=== PATIENT | female | born 1950 | race Caucasian/White ===

== ENCOUNTER 2024-05-03 12:03 | Emergency (ER) | payer MEDICARE, SELFPAY ==
--- NOTE | ~2024-05-03 | CT_ITS ---
Non-contrast Head CT History: Dizziness Technique: Axial non-contrast imaging of the brain was performed. Dose reduction technique was used on this scan by utilizing automated exposure control and iterative reconstruction technique. The dose -length product (DLP) was 605.33 mGy-cm. Findings: There is no evidence of intracranial hemorrhage, mass lesion, or acute infarct. Cerebellar atrophy noted. Cerebral hemispheres are normal in volume/appearance. The ventricles and subarachnoid spaces are normal in size. The calvarium appears normal. The visualized paranasal sinuses and mast oid air cells are clear. Impression: Cerebellar atrophy. No acute abnormality evident otherwise. Reviewed, dictated and finalized at location . Impression: Cerebellar atrophy. No acute abnormality evident otherwise.
--- NOTE | ~2024-05-03 | CT_ITS ---
EXAMINATION: CTA BRAIN/CAROTID DATE: 05/03/2024 15:43 INDICATION: Cerebellar atrophy and dizziness and disorientation. TECHNIQUE: Computed tomographic angiography (CTA) of the head and neck was performed with 100 mL Omni paque-350 intravenous contrast. Multiplanar reconstructions and maximum intensity projection 3D-recon structions of the carotid arteries and of the intracranial arteries were created by the technologist on a separate workstation. Precontrast CT of the head was also obtained. Automated exposure control and iterative reconstruction technique were employed.The dose-length product was 1129.92 mGy-cm. COMPARISON: None. FINDINGS: Carotid arteries: Ectatic ascending thoracic aorta visualized portion measuring up to 3.9 x 3.7 cm. There is small amou nt of atherosclerotic plaque with 0% stenosis of the right and left carotid bulbs relative to normal distal artery lumen diameter (NASCET criteria). Without pleural parenchymal scarring and a couple <4 mm nodules at the bilateral upper lobes. Peripheral soft tissues are unremarkable. Mild cervical spon dylosis. Intracranial arteries Bilateral vertebral arteries are codominant. Small amount of nonhemodynamically significant atheroscl erotic calcific lesion at the bilateral carotid siphons. There is no hemodynamically significant sten osis in the vertebral, basilar and internal carotid arteries. There are no aneurysms identified. Bot h A1 and P1 segments are patent. The left P1 segment is diminutive with collateral flow supplied to t he left posterior cerebral artery via a larger caliber patent left posterior communicating artery. Ce rebral arterial arborization appears symmetric. Bilateral cerebellar atrophy. IMPRESSION: 1. Small amount of atherosclerotic plaque with 0% stenosis of the right and left carotid bulbs relati ve to normal distal artery lumen diameter (NASCET criteria). 2. Unremarkable cerebral CT angiogram with no hemodynamic significant stenosis, thrombosis or aneurys m or 3. Bilateral cerebellar atrophy. 4. A couple <4 mm pulmonary nodules at the bilateral upper lobes. If the patient is low risk for lung cancer, no follow-up is needed. If the patient is high risk (i.e., history of smoking or asbestos or significant radiation exposure), optional follow-up chest CT could be considered at 12 months. Reviewed, dictated and finalized at location A. IMPRESSION: 1. Small amount of atherosclerotic plaque with 0% stenosis of the right and lef t carotid bulbs relative to normal distal artery lumen diameter (NASCET criteri a). 2. Unremarkable cerebral CT angiogram with no hemodynamic significant stenosis, thrombosis or aneurysm or 3. Bilateral cerebellar atrophy. 4. A couple <4 mm pulmonary nodules at the bilateral upper lobes. If the patien t is low risk for lung cancer, no follow-up is needed. If the patient is high r isk (i.e., history of smoking or asbestos or significant radiation exposure), o ptional follow-up chest CT could be considered at 12 months.
--- NOTE | 2024-05-03 12:07 | ECG_ITS ---
Test Date: 2024-05-03 12:12:07 Measurements Intervals [place] Rate: 72 P: 57 [place]: 168 QRS: 1 QRSD: 94 T: 23 QT: 398 QTc: 436 Interpretive Statements SINUS RHYTHM LOW QRS VOLTAGE IN PRECORDIAL LEADS INCOMPLETE RIGHT BUNDLE BRANCH BLOCK BORDERLINE ST-T WAVE ABNORMALITY- ANTEROLAT/INF LEADS BASELINE ARTIFACT- I, II, III, AVR, AVL, V5 BORDERLINE ECG No previous ECG available for comparison Electronically Signed On 05-03-2024 16:25:50 CDT by London Katz D.O.
[2024-05-03 12:08] VITALS: BP 146/80; PULSE 80; RESP 16; TEMP 36.2; O2SAT 96
--- NOTE | 2024-05-03 13:05 | ED.DIZZY ---
HPI - Dizziness General Chief Complaint: Dizziness <Priyank Burrell, DIRECTOR COUNSELING [employer]UREAU - Last Filed: 05/03/24 13:19> Stated Complaint: virtigo <Priyank Burrell DIRECTOR COUNSELING [employer]AU - Last Filed: 05/03/24 13:19> Time Seen by Provider: 05/03/24 14:25 <Priyank Burrell APRN - Last Filed: 05/03/24 13:19> 73-year-old female history of seizure disorder treated with cervix presents to the emergency room for evaluation of intermittent dizziness for 3 weeks. Patient has a history of vertigo which has been treated with meclizine in the past. Patient states that ?I have not been feeling well for several weeks?. States her dizziness is worse with movement. Associated with nausea. Patient states that she has stopped taking her anti seizure medication in favor of taking her meclizine. States the meclizine has not been helping her dizziness. Denies head injury or trauma. <Priyank Burrell APRN - Last Filed: 05/03/24 13:19> Source: patient and family (grandson and grandson's girlfriend) <Jenn Duggan MD - Last Filed: 05/06/24 20:35> Mode of arrival: ambulatory <Jenn Duggan MD - Last Filed: 05/06/24 20:35> Limitations: no limitations <Jenn Duggan MD - Last Filed: 05/06/24 20:35> History of Present Illness HPI Narrative: Agree with above with following addition/correction: Her episodes of dizziness are brief, lasting a few seconds. Describes it as a disorientation but not a spinning sensation. Does not see a neurologist for her seizure disorder or her previous diagnosis of vertigo. Episodes sometimes brought on or made worse by movement (both general position as well as head movement). No headache. Symptoms have lasted several days, worsening. Not lightheaded but feels off balance. No syncope or near syncope. Occasionally using her walker when she is symptomatic. Not currently symptomatic. Possible tinnitus; doesn't describe it as a ringing but states her hearing has chronically been off. No trauma. No new meds. Associated with nausea but no vomiting. Does not have a pacemaker in place. States she has never undergone an MRI but has had an EEG for her seizures. Patient can not recall her seizure medication but believes it might be phenytoin. Also on levothyroxine. <Jenn Duggan MD - Last Filed: 05/06/24 20:35> Related Data Home Medications: Home Medications Medication Instructions Recorded Confirmed amlodipine 5 mg tablet 5 mg PO DAILY 05/11/22 05/11/22 mometasone-formoterol HFA 100 2 puff inhalation Q12H 05/11/22 05/11/22 mcg-5 mcg/actuation aerosol inhaler (Dulera) phenytoin sodium extended 100 mg 100 mg PO TID 05/11/22 05/11/22 capsule levothyroxine 25 mcg tablet 25 mcg PO DAILY 05/17/23 (Unithroid) meloxicam 15 mg tablet 15 mg PO DAILY 05/17/23 polyethylene glycol 3350 17 17 g PO DAILY 05/17/23 gram/dose oral powder (Miralax) rosuvastatin 40 mg tablet 40 mg PO DAILY 05/17/23 <Priyank Burrell, DIRECTOR COUNSELING [employer]AU - Last Filed: 05/03/24 13:19> Allergies/Adverse Reactions: Allergies Allergy/AdvReac Type Severity Reaction Status Date / Time No Known Allergies Allergy Verified 05/17/23 14:50 <Priyank Burrell APRN - Last Filed: 05/03/24 13:19> [facility] Past Medical History Medical History: Medical History (Updated 05/04/24 @ 00:00 by Megan Min) High cholesterol Hypertension Screening mammogram, encounter for Seizures <Priyank Burrell APRN - Last Filed: 05/03/24 13:19> Surgical History Surgical History: Surgical History (Updated 05/06/24 @ 20:22 by Jenn Duggan MD) History of gastrointestinal surgery repair of abdominal fistula History of hysterectomy (~1993) History of left breast biopsy <Priyank Burrell APRN - Last Filed: 05/03/24 13:19> Social History Social History: Social History (Updated 05/06/24 @ 20:29 by Jenn Duggan MD) Smoking status: Never smoker Alcohol intake: never Substance use: never Sub
[2024-05-03 13:21] LABS: Basophils Percent Auto 0.5 % (0.2-1.2); Eosinophils Absolute Auto 0.1 K/mm3 (0-0.3); Eosinophils Percent Auto 1.6 % (0-4.4); Hematocrit 43.4 % (37.0-47.0); Hemoglobin 14.1 g/dL (12.0-15.0); Immature Granulocyte Absolute 0.02 K/mm3 (0.00-0.031); Immature Granulocyte Percent A 0.4 % (0-0.5); Lymphocytes Absolute Auto 1.04 K/mm3 (0.9-3.2); Lymphocytes Percent Auto 18.6 % (18.3-44.2); Mean Corpuscular HGB Conc 32.5 g/dl (32-36); Mean Corpuscular Hemoglobin 29.9 pg (26-34); Mean Corpuscular Volume 91.9 fl (80-100); Mean Platelet Volume 9.6 fl (7.4-10.4); Monocytes Absolute Auto 0.3 K/mm3 (0.1-0.6); Monocytes Percent Auto 6.1 % (2.6-8.5); Neutrophils Absolute Auto 4.1 K/mm3 (1.3-6.7); Neutrophils Percent Auto 72.8 % (45.5-73.1); Platelet Count Result 247 k/mm3 (150-375); Red Blood Count 4.72 M/mm3 (4.2-5.4); Red Cell Distribution Width 12.2 % (11.5-14.5); White Blood Count 5.6 K/mm3 (4.5-10.0)
[2024-05-03 13:30] LABS: Alanine Aminotransferase 59 U/L (6-35); Albumin Level 4.9 g/dL (3.5-5.1); Alkaline Phosphatase 114 U/L (38-126); Anion Gap 13 mmol/L (4-12); Aspartate Amino Transferase 55 U/L (14-36); Bilirubin,Total 0.6 mg/dL (0.2-1.3); Blood Urea Nitrogen 14 mg/dL (7-17); Calcium 9.7 mg/dL (8.4-10.2); Carbon Dioxide 24 mmol/L (22-30); Chloride 102 mmol/L (98-107); Estimated CRCL calculation 80 ml/min; Estimated Glomerular Filt Rate > 60; Glucose 107 mg/dL (65-110); Potassium 3.9 mmol/L (3.4-5.0); Sodium 139 mmol/L (137-145)
[2024-05-03 13:42] LABS: Troponin I < 0.012 ng/mL (0.000-0.034)
[2024-05-03 14:06] VITALS: BP 122/68; PULSE 66; RESP 17; TEMP 36.6; O2SAT 97
[2024-05-03 14:57] LABS: Appearance Urine Clear (Clear); Bacteria Urine None Seen /hpf; Bilirubin Urine Negative (Negative); Blood Urine Negative (Negative); Color Urine Yellow (Yellow); Glucose Urine UA Negative (Negative); Ketones Urine 2+ mg/dL (Negative); Leukocyte Esterase Ur Trace LEU/UL (Negative); Nitrate Urine Negative (Negative); Non Pathogenic Casts 0-2; Protein Urine Negative (Negative); RBC Urine 0-2 /hpf (0-2); Specific Grav Ur 1.013 (1.001-1.035); Squamous Epithelial Cell Urine None Seen /hpf (Few); WBC Urine 0-5 /hpf (0-3)
[2024-05-03 15:02] LABS: Add Urine Microscopic? YES
--- NOTE | 2024-05-03 16:16 | PC.NURSE ---
Walked down the hallway with the patient. She used the walker. She was steady on her feet and not dizzy when standing or walking.
[2024-05-03 16:28] VITALS: BP 155/77; PULSE 66; RESP 18; TEMP 36.9; O2SAT 97
[2024-05-03 18:15] VITALS: BP 154/82; PULSE 82; RESP 18; TEMP 36.8; O2SAT 100
== END 2024-05-03 17:25 | disposition home or self-care (01) ==
PROVIDERS: Nurse Practitioner Family; Emergency Provider Student in an Organized Health Care Education/Training Program; PCP Internal Medicine
DX: R42 Dizziness and giddiness (principal); G31.9 Degenerative disease of nervous system, unspecified; R74.01 Elevation of levels of liver transaminase levels; G40.909 Epilepsy, unspecified, not intractable, without status epilepticus; I10 Essential (primary) hypertension; E78.00 Pure hypercholesterolemia, unspecified; Z90.710 Acquired absence of both cervix and uterus; R91.8 Other nonspecific abnormal finding of lung field
CPT/HCPCS: 36415; 70450; 70496; 70498; 80053; 81001; 84484; 85025; 93005; 99284; Q9967

== ENCOUNTER 2024-07-13 12:55 | Outpatient (CLI) | payer MEDICARE, SELFPAY ==
--- NOTE | ~2024-07-13 | MR_ITS ---
EXAMINATION: MR brain/brain stem wo con DATE: 07/13/2024 13:37 INDICATION: Vertigo. TECHNIQUE: Magnetic resonance imaging (MRI) of the brain and brainstem was performed without intraven ous contrast. COMPARISON: Head CT 05/03/2024 FINDINGS: There are scattered areas of nonspecific increased T2-weighted signal intensity in the cere bral white matter, which is within normal limits for the patient's age. There is no intracranial hemo rrhage, acute infarction, or abnormal intracranial mass lesion. The ventricles are normal in size. Th e orbits are normal. There is mild mucosal thickening in the paranasal sinuses. The mastoid air cells are normal. IMPRESSION: 1. Normal aging brain. Reviewed, dictated and finalized at location A. IMPRESSION: 1. Normal aging brain.
== END 2024-07-13 12:56 | disposition home or self-care (01) ==
PROVIDERS: PCP Internal Medicine; Visit Provider Internal Medicine
DX: R42 Dizziness and giddiness (principal)
CPT/HCPCS: 70551

== ENCOUNTER 2024-08-07 14:28 | Outpatient (CLI) | payer MEDICARE, SELFPAY ==
[2024-08-07 14:43] LABS: Basophils Absolute Auto 0.1 K/mm3 (0.0-0.1); Basophils Percent Auto 1.3 % (0.2-1.2); Eosinophils Absolute Auto 0.2 K/mm3 (0-0.3); Eosinophils Percent Auto 3.2 % (0-4.4); Hematocrit 40.4 % (37.0-47.0); Hemoglobin 12.9 g/dL (12.0-15.0); Lymphocytes Absolute Auto 1.19 K/mm3 (0.9-3.2); Lymphocytes Percent Auto 25.5 % (18.3-44.2); Mean Corpuscular HGB Conc 31.9 g/dl (32-36); Mean Corpuscular Hemoglobin 29.9 pg (26-34); Mean Corpuscular Volume 93.5 fl (80-100); Mean Platelet Volume 9.3 fl (7.4-10.4); Monocytes Absolute Auto 0.4 K/mm3 (0.1-0.6); Monocytes Percent Auto 7.5 % (2.6-8.5); Neutrophils Absolute Auto 2.9 K/mm3 (1.3-6.7); Neutrophils Percent Auto 62.5 % (45.5-73.1); Platelet Count Result 224 k/mm3 (150-375); Red Blood Count 4.32 M/mm3 (4.2-5.4); Red Cell Distribution Width 12.4 % (11.5-14.5); White Blood Count 4.7 K/mm3 (4.5-10.0)
[2024-08-07 16:38] LABS: Iron 97 ug/dL (37-170)
[2024-08-07 16:41] LABS: Alanine Aminotransferase 19 U/L (6-35); Albumin Level 4.8 g/dL (3.5-5.1); Alkaline Phosphatase 125 U/L (38-126); Anion Gap 10 mmol/L (4-12); Aspartate Amino Transferase 24 U/L (14-36); Bilirubin,Total 0.3 mg/dL (0.2-1.3); Blood Urea Nitrogen 12 mg/dL (7-17); Calcium 9.6 mg/dL (8.4-10.2); Carbon Dioxide 30 mmol/L (22-30); Chloride 99 mmol/L (98-107); Estimated Glomerular Filt Rate > 60; Glucose 96 mg/dL (65-110); Sodium 139 mmol/L (137-145)
[2024-08-07 16:50] LABS: Percent Iron Saturation 39 % (20-50)
[2024-08-07 17:48] LABS: Folic Acid 4.1 ng/mL (2.76->20)
[2024-08-09 10:24] LABS: Anti Nuclear Antibody Pattern Nuclear, Speckled
== END 2024-08-07 14:29 | disposition home or self-care (01) ==
LOC: ANHLAB 14:30
PROVIDERS: PCP Internal Medicine; Visit Provider Internal Medicine Hematology & Oncology
DX: D64.9 Anemia, unspecified (principal); D72.819 Decreased white blood cell count, unspecified
CPT/HCPCS: 36415; 80053; 82607; 82728; 82746; 83540; 83550; 85025; 86038; 86039

== ENCOUNTER 2025-01-09 14:55 | Outpatient (CLI) | payer MEDICARE, SELFPAY ==
[2025-01-09 15:10] LABS: Basophils Absolute Auto 0.1 K/mm3 (0.0-0.1); Basophils Percent Auto 1.1 % (0.2-1.2); Eosinophils Absolute Auto 0.2 K/mm3 (0-0.3); Eosinophils Percent Auto 4.4 % (0-4.4); Hematocrit 39.5 % (37.0-47.0); Hemoglobin 12.8 g/dL (12.0-15.0); Immature Granulocyte Absolute 0.01 K/mm3 (0.00-0.031); Immature Granulocyte Percent A 0.2 % (0-0.5); Lymphocytes Absolute Auto 1.32 K/mm3 (0.9-3.2); Mean Corpuscular HGB Conc 32.4 g/dl (32-36); Mean Corpuscular Hemoglobin 30.2 pg (26-34); Mean Corpuscular Volume 93.2 fl (80-100); Mean Platelet Volume 9.3 fl (7.4-10.4); Monocytes Absolute Auto 0.4 K/mm3 (0.1-0.6); Monocytes Percent Auto 7.3 % (2.6-8.5); Neutrophils Absolute Auto 3.5 K/mm3 (1.3-6.7); Platelet Count Result 243 k/mm3 (150-375); Red Blood Count 4.24 M/mm3 (4.2-5.4); Red Cell Distribution Width 12.7 % (11.5-14.5); White Blood Count 5.5 K/mm3 (4.5-10.0)
--- OUTSIDE RECORDS SUMMARY | 2025-01-09 16:16 | XMS_ITS | Clinical Summary ---
Author Organization [facility] Address [address] [address] [place] [address] Phone Care Team Providers Care Senior Construction Project Manager Name Role Phone Ang Florez MD Primary Care Provider Allergies No known active allergies Medications phenytoin sodium extended release (DILANTIN) 100 mg capsule Take 300 mg by mouth 3 times daily. Active amLODIPine (NORVASC) 5 mg tablet Take 5 mg by mouth daily. Active Unithroid 25 mcg tablet Take 25 mcg by mouth daily. Active rosuvastatin (CRESTOR) 40 mg tablet Take 40 mg by mouth daily. Active Active Problems No known active problems Encounters Date Type Department Care Team Description 01/02/2025 External Device Data [facility] ABSTRACTION Provider, Abstract 12/22/2024 External Device Data [facility] Provider, Abstract 12/21/2024 External Device Data [facility]STRA[facility] Provider, Abstract 12/18/2024 External Device Data [facility]CTION Provider, Abstract 12/04/2024 External Device Data [facility]STRACTION Provider, Abstract 11/08/2024 External Device Data [facility]STRACTION Provider, Abstract 11/07/2024 External Device Data [facility]STRACTION Provider, Abstract 11/06/2024 External Device Data [facility]STRACTION Provider, Abstract 10/31/2024 External Device Data [facility]STRACTION Provider, Abstract from Last 3 Months Family History Medical History Relation Name Comments No Known Problems Brother 1 No Known Problems Brother 2 Pancreatic Cancer Child No Known Problems Father Heart defect Mother No Known Problems Sister Relation Name Status Comments Brother 1 Brother 2 Child Father Mother Sister Alive Social History Tobacco Use Types Packs/Day Years Used Date Smoking Tobacco: Never Smokeless Tobacco: Never Tobacco Cessation:Counseling Given: Not Answered Alcohol Use Standard Drinks/Week Comments Never 0 (1 standard drink = 0.6 oz pur e alcohol) Comments No Sex and Gender Information Value Date Recorded Sex Assigned at Not on file Legal Sex Female 9:20 AM CDT Gender Identity Not on file Sexual Orientation Not on file Last Filed Vital Signs Vital Sign Reading Time Taken Comments Blood Pressure 152/68 08/07/2024 1:53 PM CDT took bp meds at noon Pulse 60 08/07/2024 1:42 PM CDT Temperature 36.6 C (97.8 F) 08/07/2024 1:42 PM CDT Respiratory Rate 16 08/07/2024 1:42 PM CDT Oxygen Saturation 96% 08/07/2024 1:4 2 PM CDT Inhaled Oxygen Concentration - - Weight 73.5 kg (162 lb) 08/07/2024 1:42 PM CDT Height 160 cm (5' 3 ) 08/07/2024 1:42 PM CDT Body Mass Index 28.7 08/07/2024 1:42 PM CDT Plan of Treatment Upcoming Encounters Date Type Department Care Team (Late st Contact Info) Description 01/11/2025 11:30 AM CDT Office Visit [facility] Oncology and Hematology - [place] [address] [place] [address] [facility] [address] [place] [address] Dereck Garber MD [address] [facility] [address] [place] [address] Health Maintenance Due Date Last Done Comments DTAP/TDAP/TD VACCINES (1 - Tdap) 1967 RSV VACCINE (60+ or ) (1 - 1-dose 75+ series) 2023 INFLUENZA VACCINE (#1) 2024 , 07/22/2021, 08/18/2020 Medicare [place]age [place]) Prev entative Visit/Annual Wellness Visit 10/17/2024 PNEUMOCOCCAL VACCINE 50+ YEARS Completed 12/15/2017 , 09/16/2016 OSTEOPOROSIS SCREENING Completed 06/16/2023 ZOSTER VACCINE Completed 08/09/2023, 06/13/2023 Insurance [facility] [id number] Care Teams Senior Construction Project Manager Relationship Specialty Start Date End Date Ang Florez MD PCP - General Internal Medicine 08/07/24
--- OUTSIDE RECORDS SUMMARY | 2025-01-09 16:17 | XMS_ITS | Clinical Summary ---
Author Organization [facility] [place] [facility] [place] Address [address] [place] [address] Care Team Providers Care Planetarium Technician Name Role Phone Nora Fabian MD Primary Care Provider [phone] Social History Tobacco Use Types Packs/Day Years Used Date Smoking Tobacco: Never Assessed Personal Safety Answer Date Recorded Getting School Help Needed Not on file 05/03 Comments Unknown Sex and Gender Information Value Date Recorded Sex Assigned at Not on file Legal Sex Female 9:46 AM CDT Gender Identity Not on file Sexual Orientation Not on file Plan of Treatment Health Maintenance Due Date Last Done Comments Depression Screening 1948 Fall Risk Assessment 1950 Hepatitis C Screening 1950 DTaP/Tdap/Td Vaccine (1 - Tdap) 1959 Hepatitis B Screening 1966 Well Visit 65+ 2013 Covid-19 Vaccine (2023-2 5 season) 2024 09/01/2022, 09/24/2021, 09/08/2021, Additional history exists Influenza Vaccine (#1) 2024 , 07/22/2021, 09/04/2020, Additional history exists Osteoporosis Screening-Bone Density Scan 06/16/2025 06/16/2023 Pneumococcal vaccine 65+ Completed 12/15/2017, 1210/2015 Breast Cancer Screening-Mammogram Discontinued 019, 01/27/2019 Zoster Vaccine Completed 08/09/2023, 06/13/2023 Insurance [facility] MEDICARE ADVANTAGE [facility] Address: [address] [address] Care Teams Planetarium Technician Relationship Specialty [place] [address] [address] PCP - General Internal Medicine 07/09/20
--- OUTSIDE RECORDS SUMMARY | 2025-01-09 16:17 | XMS_ITS | Data Portability ---
Author Organization [place] - [facility], Main Office Address [address] [place] [address] Care Team Providers Care Waters[place] Program Manager Name Role Phone SHAWNEEEMIR JOSEISMAEL Primary Care Provider KALYAN BARON Commissioned Security Officer [place] Computer Technician [facility] Hospital Insurance Representative JENNA GARBER Hematology/Oncology Assessment Encounter Date Assessment Date Assessment LastModified by Organization Details LastModified Time 12/12/2023 12/12/2023 11/17/2022: Dr Henok Rudolph 232 WBC 3.8L Gluc 102 VIT D WNL 05/23/2023: B12 940 VIT D 28.3L AST 42 Chol 213, LDL 129 11/23/2023: Chol 207, LDL 121 Not available 12/12/2023 11:58:24 06/13/2024 06/13/2024 11/17/2022: Dr Henok Rudolph 232 WBC 3.8L Gluc 102 VIT D WNL 05/23/2023: B12 940 VIT D 28.3L AST 42 Chol 213, LDL 129 11/23/2023: Chol 207, LDL 121 05/22/2024: WBC 4.1 Na 136 Chol 245, LDL 150 Not available 06/13/2024 14:06:01 10/03/2024 10/03/2024 11/17/2022: Dr Henok Rudolph 232 WBC 3.8L Gluc 102 VIT D WNL 05/23/2023: B12 940 VIT D 28.3L AST 42 Chol 213, LDL 129 11/23/2023: Chol 207, LDL 121 05/22/2024: WBC 4.1 Na 136 Chol 245, LDL 150 08/07/2024: Dr Garber TP 9.0 MARLIN +ve 09/04/2024: Chol 203, LDL 120 WBC 3.3 VIT D 21 Not available 10/03/2024 14:30:06 01/02/2025 01/02/2025 11/17/2022: Dr Whiting B12 232 WBC 3.8L Gluc 102 VIT D WNL 05/23/2023: B12 940 VIT D 28.3L AST 42 Chol 213, LDL 129 11/23/2023: Chol 207, LDL 121 05/22/2024: WBC 4.1 Na 136 Chol 245, LDL 150 Not available 01/02/2025 15:04:37 Plan of Treatment Reminders Order Date Submit Date Provider Last Modified By Organization Details Last Modified Time Details Appointments Follow Up 15 2024 02:30P Reno toussaint MD Not available Not available Not available Lab lipid panel, serum 2024 025 Not available 01/02/2025 16:47:37 CMP, serum or plasma 2024 025 Not available 01/02/2025 16:47:37 CBC w/ auto diff 2024 025 Not available 01/02/2025 16:47:38 TSH + free T4, serum 2024 025 Not available 01/02/2025 16:47:38 vitamin D, 25-hydrox y, total, serum 2024 025 Not available 01/02/2025 16:47:37 measles igg Ab, titer, serum 2024 025 [email or web address], [address], [place], [address], 01/09/2025 09:22:25 rubella igg Ab, titer, serum 2024 025 [email or web address], [address], [place], [address], 01/09/2025 09:22:34 mumps igg Ab, titer, serum 2024 025 [email or web address], [address], [place], [address], 01/09/2025 09:22:46 vitamin B12 + folate, serum or blood 2024 025 Not available 01/02/2025 16:47:38 lipid panel, serum 2023 024 [employer] [facility], [address], [place], [address], 10/03/2024 15:20:48 CMP, serum or plasma 2023 024 [employer] [facility], [address], [place], [address], 10/03/2024 15:20:48 CBC w/ auto diff 2023 024 [employer] [facility], [address], [place], [address], 10/03/2024 15:20:49 TSH + free T4, serum 2023 024 [employer] [facility], [address], [place], [address], 10/03/2024 15:20:49 vitamin D, 25-hydrox y, total, serum 2023 024 [employer] [facility], [address], [place], [address], 10/03/2024 15:20:48 vitamin B12 + folate, serum or blood 2023 024 [email or web address], [address], [place], [address], 10/03/2024 15:20:48 lipid panel, serum 2023 024 [email or web address] Not available 12/11/2024 09:13:39 CMP, serum or plasma 2023 024 [email or web address] Not available 12/11/2024 09:13:39 CBC w/ auto diff 2023 024 RANDY Not available 08/07/2024 16:40:33 TSH + free T4, serum 2023 024 [email or web address] Not available 12/11/2024 09:13:40 vitamin D, 25-hydrox y, total, serum 2023 024 [email or web address] Not available 12/11/2024 09:13:39 vitamin B12 + folate, serum or blood 2023 024 [email or web address] Not available 12/11/2024 09:13:40 lipid panel, serum 2023 024 RANDY Not available 05/22/2024 18:37:16 CMP, serum or plasma 2023 024 RANDY Not available 05/22/2024 18:37:24 CBC w/ auto diff 2023 024 RANDY Not available 05/22/2024 18:40:10 TSH + free T4, serum 2023 024 [email or web address] Not available 06/20/2024 09:19:08 vitamin D, 25-hydrox y, total, serum 2023 024 Not available 06/20/2024 09:19:08 vitamin B12 + folate, serum or blood 2023 024 [email or web address] Not available 06/20/2024 09:19:08 Referral ophthalmo logist referral - Please call patient to schedule an appointme nt. Thank you. 2024 025 [employer], [address], [place], [address], 01/02/2025 19:00:56 cardiolog ist referral - Please call patient to schedule an appointme nt. Thank you. 2024 025 [place], [address] [address], [address], [place], [address], 01/02/2025 19:10:35 ophthalmo logist referral 2023 024 [email or web address] [facility], [address] [facility] , [place], [address], 10/23/2024 09:15:55 cardiolog ist referral 2023 024 [email or web address] [place], [address] [address], [place], [address], 10/04/2024 13:56:29 hematolog ist referral 2023 024 [email or web address] Jenna Garber MD, [address], [place], [address], 10/04/2024 13:57:02 ophthalmo logist referral 2023 024 shaila Bray, [address], [place], [address], 12/11/2024 08:10:26 cardiolog ist referral 2023 024 [place], [address] [address], [place], [address], 12/11/2024 08:10:27 hematolog ist referral 2023 024 [email or web address] 2 Jenna Garber MD, [address], [place], [address], 01/07/2025 08:21:36 ophthalmo logist referral 2023 024 [email or web address] [employer], [address], [place], [address], 07/09/2024 09:08:24 cardiolog ist referral 2023 024 [place], [address], [address], [place], [address], 07/06/2024 13:06:40 Procedures oral maneuver (PROC) - ORAL MANEUVER + EVANGELIST AGUILAR PIKE TESTING. 2023 024 [facility], [address], [place], [address], 05/22/2024 14:24:18 Surgeries None recorded. Imaging MAMMO, screening , digital, bilateral [address], [address], [place], [address], 01/03/2025 08:37:54 MAMMO, screening , digital, bilateral - Please call patient to schedule. [address] [facility], [address], [place], [address], 01/01/2025 13:02:54 DEXA, axial skeleton [address], [address] [place] [address] , [place], [address], 10/03/2024 17:59:55 DEXA, axial skeleton 2023 024 [facility], [address] [place] [address] , [place], [address], 07/27/2024 14:38:15 audiogram + tympanogr am 2023 024 [facility], [address] [facility], [address], [place], [address], 06/04/2024 16:07:57 DEXA, axial skeleton 2023 024 [email or web address] [facility], [address] [place] [address] Dr, [place], [address], 06/25/2024 10:03:54 Medication Orders cholecalc iferol (vitamin D3) 1,250 mcg (50,000 unit) capsule 2023 024 [email or web address] [address], [address], 01/02/2025 14:49:50 Advair Diskus 100 mcg-50 mcg/dose powder for inhalatio n 2023 024 [email or web address] [facility] [address], [address], 10/03/2024 14:03:34 albuterol sulfate HFA 90 mcg/actua tion aerosol inhaler 2023 024 [email or web address] [address], [address], 01/02/2025 14:49:28 Unithroid 25 mcg tablet 2023 024 [email or web address] [address], [address], 01/02/2025 14:50:38 Dulera 100 mcg-5 mcg/actua tion HFA aerosol inhaler 2023 024 [email or web address] [facility] [address], [address], 10/03/2024 14:03:08 Patient TargetsNo targets recorded. Patient Instructions Encounter Date Encounter Id Patient Instructions Last Modified By Organization Details Last Modified Time 05/17/2024 [id number] evangelist-hallpike irma t* - ORAL MANEUVER + EVANGELIST AGUILAR PIKE TESTING. [email or web address] Not available 05/22/2024 14:24:28 10/03/2024 [id number] dementia rating scale-2* Not available 10/31/2024 12:52:21 alcohol misuse* Not available 10/31/2024 12:52:27 depression screening* Not available 10/31/2024 12:52:35 Timed Up and Go test (TUG)* Not available 10/31/2024 12:52:42 multi-dimensiona l health assessment questionnaire* Not available 10/31/2024 12:52:14 Personalized [facility] lt Plan and Screening Recommendations Advance Directives - Do you have one? Yes Advance Directives - Do we have your advance directive on file in your health record? Yes Primary Prevention/Interven tion (prevents or decreases the chance of common diseases from occurring) Smoking Risk: Non Smoker Alcohol Misuse Screening: Negative Weight: Appropriate Overwei ght continue your current weight loss efforts try to lose 5% of your body weight try to lose 10% of your body weight Physical activity: Need more exercise/physical activity decrease sitting time to no more than 5hr/day Nutrition: Good Average Refer to attached handout Heart-Healthy Diet: After Your Visit Fall Risk (screened today): Low Intermediate Refer to attached handout Preventing Falls: After your Visit Vaccines Pneumococcal: Ordered Recommended today Recommended today, but you have declined No further needed Influenza: Ordered Recommended today Chronic Disease Risks Stroke: Low Risk Intermediate Risk Heart Attack: Low risk Intermediate Risk Clogging of the Arteries: Low risk Intermediate Risk Diabetes: Low Risk Intermediate Risk I have no recommendations Ref er to attached handout Pre-diabetes: After Your Visit Drastically limit sugar and products made with any type of flour (bread, pasta, cereal, cookies, crackers, etc.) Secondary Prevention/Interven tion (detects treatable diseases before they may cause symptoms, disability, or ) Breast Cancer Screening with mammogram: Cervical/Uterine/Ov radha Cancer Screening: No screening necessary Osteoporosis Screening: Date Screening Last Performed:2023 Colon Cancer Screening: Colonoscopy Date Screening Last Performed: 05/20/2021 Eye Disease Screening: Ordered Recommended today Dementia Risk: Low Intermediate I have no recommendations Depression Screening: Negative [email or web address] Not available 10/04/2024 13:55:40 Reason for Referral Hospital Insurance Representative Referral for Visual impairment Referring Physician: [facility], Encounter Date: 12/12/2023 Commissioned Security Officer Referral for Es sential hypertension Referring Physician: [facility], Encounter Date: 12/12/2023 Hospital Insurance Representative Referral for Visual impairment Referring Physician: Ang Fl[facility], Encounter Date: 06/13/2024 Commissioned Security Officer Referral for Es sential hypertension Referring Physician: [facility], Encounter Date: 06/13/2024 Referring Physician: [facility], Encounter Date: 06/13/2024 Hospital Insurance Representative Referral for Visual impairment Referring Physician: [facility], Encounter Date: 10/03/2024 Commissioned Security Officer Referral for Es sential hypertension Referring Physician: [facility], Encounter Date: 10/03/2024 Referring Physician: Ron Allen, Encounter Date: 10/03/2024 Hospital Insurance Representative Referral for Visual impairment Please call patient to schedule an appointment. Thank you. Referring Physician: Ron [facility], Encounter Date: 01/02/2025 Commissioned Security Officer Referral for Es sential hypertension Please call patient to schedule an appointment. Thank you. Referring Physician: Ron Allen, Encounter Date: 01/02/2025 Results Created Date Observation Date Name Description Value Unit Range Abnormal Flag Note LastModifiedBy Organization Detail LastModifiedTime 11/23/19 24 11/23/2023 CBC/C OMPLE TE BLD COUNT W/DIF F white blood cells 6.1 x10'3 /uL 4.2-10 .8 Not Available [facility] (Lab) [address] [place], [address], 11/23/2023 19:28:26 11/23/19 24 11/23/2023 CBC/C OMPLE TE BLD COUNT W/DIF F red blood cells 4.27 x10'6 /uL 3.80-5 .20 Not Available [facility] (Lab) [address] [place], [address], 11/23/2023 19:28:26 11/23/19 24 11/23/2023 CBC/C OMPLE TE BLD COUNT W/DIF F hemoglobin 13.0 g/dL 12.0-1 5.6 Not Available [facility] (Lab) [address] [place], [address], 11/23/2023 19:28:26 11/23/19 24 11/23/2023 CBC/C OMPLE TE BLD COUNT W/DIF F hematocrit 41.3 % 35.7-4 5.7 Not Available [facility] (Lab) [address] [place], [address], 11/23/2023 19:28:26 11/23/19 24 11/23/2023 CBC/C OMPLE TE BLD COUNT W/DIF F mean red cell volume 96.7 fL 82.0-9 9.0 Not Available [facility] (Lab) [address] [place], [address], 11/23/2023 19:28:26 11/23/19 24 11/23/2023 CBC/C OMPLE TE BLD COUNT W/DIF F mean red cell hemoglobin 30.4 pg 27.0-3 3.0 Not Available [facility] (Lab) [address] [place], [address], 11/23/2023 19:28:26 11/23/19 24 11/23/2023 CBC/C OMPLE TE BLD COUNT W/DIF F mean RBC HGB concentratio n 31.5 g/dL 31.0-3 6.0 Not Available [facility] (Lab) [address] [place], [address], 11/23/2023 19:28:26 11/23/19 24 11/23/2023 CBC/C OMPLE TE BLD COUNT W/DIF F red cell distribution width 12.6 % 11.8-1 5.5 Not Available [facility] (Lab) [address] [place], [address], 11/23/2023 19:28:26 11/23/19 24 11/23/2023 CBC/C OMPLE TE BLD COUNT W/DIF F platelets 244 x10'3 /uL 150-40 0 Not Available [facility] (Lab) [address] [place], [address], 11/23/2023 19:28:26 11/23/19 24 11/23/2023 CBC/C OMPLE TE BLD COUNT W/DIF F mean platelet volume 10.5 fL 9.0-12 .4 Not Available [facility] (Lab) [address] [place], [address], 11/23/2023 19:28:26 11/23/19 24 11/23/2023 CBC/C OMPLE TE BLD COUNT W/DIF F neutrophils 61.9 % 39.0-7 2.0 Not Available [facility] (Lab) [address] [place], [address], 11/23/2023 19:28:26 11/23/19 24 11/23/2023 CBC/C OMPLE TE BLD COUNT W/DIF F lymphocytes 27.1 % 16.0-4 7.0 Not Available [facility] (Lab) [address] [place], [address], 11/23/2023 19:28:26 11/23/19 24 11/23/2023 CBC/C OMPLE TE BLD COUNT W/DIF F monocytes 6.6 % 5.0-12 .0 Not Available [facility] (Lab) [address] [place], [address], 11/23/2023 19:28:26 11/23/19 24 11/23/2023 CBC/C OMPLE TE BLD COUNT W/DIF F eosinophils 3.3 % 1.0-7. 0 Not Available [facility] (Lab) [address] [place], [address], 11/23/2023 19:28:26 11/23/19 24 11/23/2023 CBC/C OMPLE TE BLD COUNT W/DIF F basophils 0.8 % 0.0-2. 0 Not Available [facility] (Lab) [address] [place], [address], 11/23/2023 19:28:26 11/23/19 24 11/23/2023 CBC/C OMPLE TE BLD COUNT W/DIF F immature granulocytes 0.3 % 0.00-0 .50 Not Available [facility] (Lab) [address] [place], [address], 11/23/2023 19:28:26 11/23/19 24 11/23/2023 CBC/C OMPLE TE BLD COUNT W/DIF F neutrophils, absolute count 3.76 x10'3 /uL 1.5-8. 0 Not Available [facility] (Lab) [address] [place], [address], 11/23/2023 19:28:26 11/23/19 24 11/23/2023 CBC/C OMPLE TE BLD COUNT W/DIF F lymphocytes, absolute count 1.65 x10'3 /uL 1.07-3 .43 Not Available [facility] (Lab) [address] [place], [address], 11/23/2023 19:28:26 11/23/19 24 11/23/2023 CBC/C OMPLE TE BLD COUNT W/DIF F monocytes, absolute count 0.40 x10'3 /uL 0.29-0 .99 Not Available [facility] (Lab) [address] [place], [address], 11/23/2023 19:28:26 11/23/19 24 11/23/2023 CBC/C OMPLE TE BLD COUNT W/DIF F eosinophils, absolute count 0.20 x10'3 /uL 0.02-0 .53 Not Available [facility] (Lab) [address] [place], [address], 11/23/2023 19:28:26 11/23/19 24 11/23/2023 CBC/C OMPLE TE BLD COUNT W/DIF F basophils, absolute count 0.05 x10'3 /uL 0.01-0 .08 Not Available [facility] (Lab) [address] [place], [address], 11/23/2023 19:28:26 11/23/19 24 11/23/2023 CBC/C OMPLE TE BLD COUNT W/DIF F immature granulocytes ,absolute 0.02 x10'3 /uL 0.00-0 .05 Not Available [facility] (Lab) [address] [place], [address], 11/23/2023 19:28:26 11/23/19 24 11/23/2023 CBC/C OMPLE TE BLD COUNT W/DIF F nucleated red blood cells 0.0 % -0 Not Available [facility] (Lab) [address] [place], [address], 11/23/2023 19:28:26 11/23/19 24 11/23/2023 CBC/C OMPLE TE BLD COUNT W/DIF F NRBC# 0.00 x10'3 /uL Not Available [facility] (Lab) [address] [place], [address], 11/23/2023 19:28:26 11/23/19 24 11/23/2023 LIPID PANEL cholesterol 207 mg/dL 140-19 9 high NIH BRANDT NSUS RECOM MENDA TION FOR ABHI STERO L: ADULT CHILD LOW RISK: <200 <170 BORDE RLINE : <200- 239 ----- HIGH RISK: >240 >200 Not Available [facility] (Lab) [address] [place], [address], 11/23/2023 19:40:49 11/23/19 24 11/23/2023 LIPID PANEL triglyceride s 94 mg/dL 0-150 NIH BRANDT NSUS REPOR T RECOM MENDA TION FOR TRIGL YCERI MADELEINE: ADULT CHILD LOW RISK: <150 ----- BODER LINE: 150-1 99 ----- HIGH RISK: >200 ----- Not Available [facility] (Lab) [address] [place], [address], 11/23/2023 19:40:49 11/23/19 24 11/23/2023 LIPID PANEL HDL cholesterol 67 mg/dL 40- Not Available [facility] (Lab) [address] [place], [address], 11/23/2023 19:40:49 11/23/19 24 11/23/2023 LIPID PANEL LDL cholesterol, calculated 121 mg/dL 0-130 NIH BARNDT NSUS REPOR T RECOM MENDA TIONS FOR LDL: ADULT CHILD LOW RISK <130 <110 (OPTI MAL LDL) <100 ----- BORDE RLINE : 130-1 59 ----- HIGH RISK: >160 >130 A TRIGL YCERI DE RESUL T >400 INVAL IDATE S THE CALCU LATIO N FOR LDL FRACT IONAT ION - THE LDL RESUL T WILL NOT BE REPOR EKATERINA. Not Available [facility] (Lab) [address] [place], [address], 11/23/2023 19:40:49 11/23/19 24 11/23/2023 COMPR EHENS GISEL METAB OLIC PANEL sodium 139 mmol/ L 137-14 5 Not Available [facility] (Lab) [address] [place], [address], 11/23/2023 19:40:55 11/23/19 24 11/23/2023 COMPR EHENS GISEL METAB OLIC PANEL potassium 5.0 mmol/ L 3.5-5. 1 Not Available [facility] (Lab) [address] [place], [address], 11/23/2023 19:40:55 11/23/19 24 11/23/2023 COMPR EHENS GISEL METAB OLIC PANEL chloride 102 mmol/ L 98-107 Not Available [facility] (Lab) [address] [place], [address], 11/23/2023 19:40:55 11/23/19 24 11/23/2023 COMPR EHENS GISEL METAB OLIC PANEL carbon dioxide 31 mmol/ L 22-30 high Not Available [facility] (Lab) [address] [place], [address], 11/23/2023 19:40:55 11/23/19 24 11/23/2023 COMPR EHENS GISEL METAB OLIC PANEL anion gap 11.0 mmol/ L 14-22 low Not Available [facility] (Lab) [address] [place], [address], 11/23/2023 19:40:55 11/23/19 24 11/23/2023 COMPR EHENS GISEL METAB OLIC PANEL glucose 95 mg/dL 70-99 Not Available [facility] (Lab) [address] [place], [address], 11/23/2023 19:40:55 11/23/19 24 11/23/2023 COMPR EHENS GISEL METAB OLIC PANEL BUN 19 mg/dL 8-19 Not Available [facility] (Lab) [address] [place], [address], 11/23/2023 19:40:55 11/23/19 24 11/23/2023 COMPR EHENS GISEL METAB OLIC PANEL creatinine 0.51 mg/dL 0.66-1 .25 low Not Available [facility] (Lab) [address] [place], [address], 11/23/2023 19:40:55 11/23/19 24 11/23/2023 COMPR EHENS GISEL METAB OLIC PANEL GFR >60 Refer ence Range : [place] ge GFR Healt hy Adult : >60 mL/mi n/1.7 3 m2 Chron ic Kidne y Disea se: 15-60 mL/mi n/1.7 3 m2 Kidne y Failu re: <15/m L/min /1.73 m2 www.n iddk. nih.g ov The MDRD study equat ion has not been valid ated in child mart <18 years of age; pregn ant women ; the elder ly >85 years of age; or in some racia l or ethni c subgr oups, such as Hispa nics. Outsi de the valid ated rajeev eters , estim ated GFR is less accur ate, requi ring clini ayala judgm ent on a case- by-ca se basis . Clini ayala inter preta tion for other races and ages must be made by the clini adrienne. The MDRD study equat ion has not been valid ated for the evalu ation of serum creat inine relat ed to nutri chaitanya l statu s or medic ation usage . For perso ns <18 years of age, a pedia tric GFR calcu lator is avail able on the [facility] websi te: https ://rufina w.kid yoselin.o rg/pr ofess ional s/kdo qi/gf r_cal culat or Not Available [facility] (Lab) [address] [place], [address], 11/23/2023 19:40:55 11/23/19 24 11/23/2023 COMPR EHENS GISEL METAB OLIC PANEL alkaline phosphatase 101 U/L 38-126 Not Available [facility] (Lab) [address] [facility] [place], [address], 11/23/2023 19:40:55 11/23/19 24 11/23/2023 COMPR EHENS GISEL METAB OLIC PANEL alanine aminotransfe rase 25 U/L 0-35 Not Available [facility] (Lab) [address] [place], [address], 11/23/2023 19:40:55 11/23/19 24 11/23/2023 COMPR EHENS GISEL METAB OLIC PANEL aspartate aminotransfe rase 30 U/L 15-37 Not Available [facility] (Lab) [address] [place], [address], 11/23/2023 19:40:55 11/23/19 24 11/23/2023 COMPR EHENS GISEL METAB OLIC PANEL bilirubin, total 0.40 mg/dL 0.20-1 .30 Not Available [facility] (Lab) [address] [place], [address], 11/23/2023 19:40:55 11/23/19 24 11/23/2023 COMPR EHENS GISEL METAB OLIC PANEL calcium 10.0 mg/dL 8.4-10 .2 Not Available [facility] (Lab) [address] [place], [address], 11/23/2023 19:40:55 11/23/19 24 11/23/2023 COMPR EHENS GISEL METAB OLIC PANEL total protein 7.5 g/dL 6.3-8. 2 Not Available [facility] (Lab) [address] [place], [address], 11/23/2023 19:40:55 11/23/19 24 11/23/2023 COMPR EHENS GISEL METAB OLIC PANEL albumin 4.3 g/dL 3.0-4. 4 Not Available [facility] (Lab) [address] [place], [address], 11/23/2023 19:40:55 11/23/19 24 11/23/2023 COMPR EHENS GISEL METAB OLIC PANEL globulin 3.2 g/dL 2.6-4. 2 Not Available [facility] (Lab) [address] [place], [address], 11/23/2023 19:40:55 11/23/19 24 11/23/2023 COMPR EHENS GISEL METAB OLIC PANEL A/G ratio 1.3 ratio 1.0-2. 0 Not Available [facility] (Lab) [address] [place], [address], 11/23/2023 19:40:55 11/23/19 24 11/23/2023 T4 FREE free T4 0.87 NG/dL 0.78-2 .19 Not Available [facility] (Lab) [address] [place], [address], 11/23/2023 20:11:50 11/23/19 24 11/23/2023 VITAM IN D 25-HY DROXY [id number] 37.1 NG/mL 30-100 Vitam in D Statu s: Defic ient: <20 ng/mL Insuf ficie nt: 20-29 ng/mL Suffi cient : 30-10 0 ng/mL Not Available [facility] (Lab) [address] [place], [address], 11/23/2023 20:12:21 11/23/19 24 11/23/2023 TSH thyroid-stim ulating hormone 2.100 uIU/m L 0.465- 4.680 Not Available [facility] (Lab) [address] [place], [address], 11/23/2023 20:12:45 05/22/20 24 05/22/2024 LIPID PANEL cholesterol 245 mg/dL 140-19 9 high NIH BRANDT NSUS RECOM MENDA TION FOR ABHI STERO L: ADULT CHILD LOW RISK: <200 <170 BORDE RLINE : <200- 239 ----- HIGH RISK: >240 >200 Not Available [facility] (Lab) [address] [place], [address], 05/22/2024 18:37:16 05/22/2005/22/2024 LIPID PANEL triglyceride s 121 mg/dL 0-150 NIH BRANDT NSUS REPOR T RECOM MENDA TION FOR TRIGL YCERI MADELEINE: ADULT CHILD LOW RISK: <150 ----- BODER LINE: 150-1 99 ----- HIGH RISK: >200 ----- Not Available [facility] (Lab) [address] [place], [address], 05/22/2024 18:37:16 05/22/2005/22/2024 LIPID PANEL HDL cholesterol 71 mg/dL 40- Not Available [facility] (Lab) [address] [place], [address], 05/22/2024 18:37:16 05/22/20 24 05/22/2024 LIPID PANEL LDL cholesterol, calculated 150 mg/dL 0-130 high [facility] NSUS REPOR T RECOM MENDA TIONS FOR LDL: ADULT CHILD LOW RISK <130 <110 (OPTI MAL LDL) <100 ----- BORDE RLINE : 130-1 59 ----- HIGH RISK: >160 >130 A TRIGL YCERI DE RESUL T >400 INVAL IDATE S THE CALCU LATIO N FOR LDL FRACT IONAT ION - THE LDL RESUL T WILL NOT BE REPOR EKATERINA. Not Available [facility] (Lab) [address] [place], [address], 05/22/2024 18:37:16 05/22/2005/22/2024 COMPR EHENS GISEL METAB OLIC PANEL sodium 136 mmol/ L 137-14 5 low Not Available [facility] (Lab) [address] [place], [address], 05/22/2024 18:37:24 05/22/20 24 05/22/2024 COMPR EHENS GISEL METAB OLIC PANEL potassium 4.5 mmol/ L 3.5-5. 1 Not Available [facility] (Lab) [address] [place], [address], 05/22/2024 18:37:24 05/22/20 24 05/22/2024 COMPR EHENS GISEL METAB OLIC PANEL chloride 107 mmol/ L 98-107 Not Available [facility] (Lab) [address] [place], [address], 05/22/2024 18:37:24 05/22/20 24 05/22/2024 COMPR EHENS GISEL METAB OLIC PANEL carbon dioxide 27 mmol/ L 22-30 Not Available [facility] (Lab) [address] [place], [address], 05/22/2024 18:37:24 05/22/20 24 05/22/2024 COMPR EHENS GISEL METAB OLIC PANEL anion gap 6.5 mmol/ L 14-22 low Not Available [facility] (Lab) [address] [place], [address], 05/22/2024 18:37:24 05/22/20 24 05/22/2024 COMPR EHENS GISEL METAB OLIC PANEL glucose 99 mg/dL 70-99 Not Available [facility] (Lab) [address] [place], [address], 05/22/2024 18:37:24 05/22/20 24 05/22/2024 COMPR EHENS GISEL METAB OLIC PANEL BUN 15 mg/dL 8-19 Not Available [facility] (Lab) [address] [place], [address], 05/22/2024 18:37:24 05/22/20 24 05/22/2024 COMPR EHENS GISEL METAB OLIC PANEL creatinine 0.60 mg/dL 0.66-1 .25 low Not Available [facility] (Lab) [address] [place], [address], 05/22/2024 18:37:24 05/22/20 24 05/22/2024 COMPR EHENS GISEL METAB OLIC PANEL GFR >60 Refer ence Range : [place] ge GFR Healt hy Adult : >60 mL/mi n/1.7 3 m2 Chron ic Kidne y Disea se: 15-60 mL/mi n/1.7 3 m2 Kidne y Failu re: <15/m L/min /1.73 m2 www.n iddk. nih.g ov The MDRD study equat ion has not been valid ated in child mart <18 years of age; pregn ant women ; the elder ly >85 years of age; or in some racia l or ethni c subgr oups, such as Hispa nics. Outsi de the valid ated rajeev eters , estim ated GFR is less accur ate, requi ring clini ayala judgm ent on a case- by-ca se basis . Clini ayala inter preta tion for other races and ages must be made by the clini adrienne. The MDRD study equat ion has not been valid ated for the evalu ation of serum creat inine relat ed to nutri chaitanya l statu s or medic ation usage . For perso ns <18 years of age, a pedia tric GFR calcu lator is avail able on the [facility] websi te: https ://rufina w.wilfrido wyatt.o rg/pr ofess ional s/kdo qi/gf r_cal culat or Not Available [facility] (Lab) [address] [place], [address], 05/22/2024 18:37:24 05/22/20 24 05/22/2024 COMPR EHENS GISEL METAB OLIC PANEL alkaline phosphatase 82 U/L 38-126 Not Available [facility] (Lab) [address] [place], [address], 05/22/2024 18:37:24 05/22/20 24 05/22/2024 COMPR EHENS GISEL METAB OLIC PANEL alanine aminotransfe rase 23 U/L 0-35 Not Available [facility] (Lab) [address] [place], [address], 05/22/2024 18:37:24 05/22/20 24 05/22/2024 COMPR EHENS GISEL METAB OLIC PANEL aspartate aminotransfe rase 35 U/L 15-37 Not Available [facility] (Lab) [address] [place], [address], 05/22/2024 18:37:24 05/22/20 24 05/22/2024 COMPR EHENS GISEL METAB OLIC PANEL bilirubin, total 0.40 mg/dL 0.20-1 .30 Not Available [facility] (Lab) [address] [place], [address], 05/22/2024 18:37:24 05/22/20 24 05/22/2024 COMPR EHENS GISEL METAB OLIC PANEL calcium 9.3 mg/dL 8.4-10 .2 Not Available [facility] (Lab) [address] [place], [address], 05/22/2024 18:37:24 05/22/20 24 05/22/2024 COMPR EHENS GISEL METAB OLIC PANEL total protein 7.5 g/dL 6.3-8. 2 Not Available [facility] (Lab) [address] [place], [address], 05/22/2024 18:37:24 05/22/20 24 05/22/2024 COMPR EHENS GISEL METAB OLIC PANEL albumin 4.6 g/dL 3.0-4. 4 high Not Available [facility] (Lab) [address] [place], [address], 05/22/2024 18:37:24 05/22/20 24 05/22/2024 COMPR EHENS GISEL METAB OLIC PANEL globulin 2.9 g/dL 2.6-4. 2 Not Available [facility] (Lab) [address] [place], [address], 05/22/2024 18:37:24 05/22/20 24 05/22/2024 COMPR EHENS GISEL METAB OLIC PANEL A/G ratio 1.6 ratio 1.0-2. 0 Not Available [facility] (Lab) [address] [place], [address], 05/22/2024 18:37:24 05/22/20 24 05/22/2024 CBC/C OMPLE TE BLD COUNT W/DIF F white blood cells 4.1 x10'3 /uL 4.2-10 .8 low Not Available [facility] (Lab) [address] [place], [address], 05/22/2024 18:40:10 05/22/20 24 05/22/2024 CBC/C OMPLE TE BLD COUNT W/DIF F red blood cells 4.25 x10'6 /uL 3.80-5 .20 Not Available [facility] (Lab) [address] [place], [address], 05/22/2024 18:40:10 05/22/20 24 05/22/2024 CBC/C OMPLE TE BLD COUNT W/DIF F hemoglobin 12.8 g/dL 12.0-1 5.6 Not Available [facility] (Lab) [address] [place], [address], 05/22/2024 18:40:10 05/22/20 24 05/22/2024 CBC/C OMPLE TE BLD COUNT W/DIF F hematocrit 39.8 % 35.7-4 5.7 Not Available [facility] (Lab) [address] [place], [address], 05/22/2024 18:40:10 05/22/20 24 05/22/2024 CBC/C OMPLE TE BLD COUNT W/DIF F mean red cell volume 93.6 fL 82.0-9 9.0 Not Available [facility] (Lab) [address] [place], [address], 05/22/2024 18:40:10 05/22/20 24 05/22/2024 CBC/C OMPLE TE BLD COUNT W/DIF F mean red cell hemoglobin 30.1 pg 27.0-3 3.0 Not Available [facility] (Lab) [address] [place], [address], 05/22/2024 18:40:10 05/22/20 24 05/22/2024 CBC/C OMPLE TE BLD COUNT W/DIF F mean RBC HGB concentratio n 32.2 g/dL 31.0-3 6.0 Not Available [facility] (Lab) [address] [facility] [place], [address], 05/22/2024 18:40:10 05/22/20 24 05/22/2024 CBC/C OMPLE TE BLD COUNT W/DIF F red cell distribution width 12.5 % 11.8-1 5.5 Not Available [facility] (Lab) [address] [place], [address], 05/22/2024 18:40:10 05/22/20 24 05/22/2024 CBC/C OMPLE TE BLD COUNT W/DIF F platelets 241 x10'3 /uL 150-40 0 Not Available [facility] (Lab) [address] [place], [address], 05/22/2024 18:40:10 05/22/20 24 05/22/2024 CBC/C OMPLE TE BLD COUNT W/DIF F mean platelet volume 10.6 fL 9.0-12 .4 Not Available [facility] (Lab) [address] [place], [address], 05/22/2024 18:40:10 05/22/20 24 05/22/2024 CBC/C OMPLE TE BLD COUNT W/DIF F neutrophils 62.1 % 39.0-7 2.0 Not Available [facility] (Lab) [address] [place], [address], 05/22/2024 18:40:10 05/22/20 24 05/22/2024 CBC/C OMPLE TE BLD COUNT W/DIF F lymphocytes 25.2 % 16.0-4 7.0 Not Available [facility] (Lab) [address] [place], [address], 05/22/2024 18:40:10 05/22/20 24 05/22/2024 CBC/C OMPLE TE BLD COUNT W/DIF F monocytes 8.3 % 5.0-12 .0 Not Available [facility] (Lab) [address] [place], [address], 05/22/2024 18:40:10 05/22/20 24 05/22/2024 CBC/C OMPLE TE BLD COUNT W/DIF F eosinophils 3.4 % 1.0-7. 0 Not Available [facility] (Lab) [address] [place], [address], 05/22/2024 18:40:10 05/22/20 24 05/22/2024 CBC/C OMPLE TE BLD COUNT W/DIF F basophils 1.0 % 0.0-2. 0 Not Available [facility] (Lab) [address] [place], [address], 05/22/2024 18:40:10 05/22/20 24 05/22/2024 CBC/C OMPLE TE BLD COUNT W/DIF F immature granulocytes 0.0 % 0.00-0 .50 Not Available [facility] (Lab) [address] [place], [address], 05/22/2024 18:40:10 05/22/20 24 05/22/2024 CBC/C OMPLE TE BLD COUNT W/DIF F neutrophils, absolute count 2.54 x10'3 /uL 1.5-8. 0 Not Available [facility] (Lab) [address] [place], [address], 05/22/2024 18:40:10 05/22/20 24 05/22/2024 CBC/C OMPLE TE BLD COUNT W/DIF F lymphocytes, absolute count 1.03 x10'3 /uL 1.07-3 .43 low Not Available [facility] (Lab) [address] [place], [address], 05/22/2024 18:40:10 05/22/20 24 05/22/2024 CBC/C OMPLE TE BLD COUNT W/DIF F monocytes, absolute count 0.34 x10'3 /uL 0.29-0 .99 Not Available [facility] (Lab) [address] [place], [address], 05/22/2024 18:40:10 05/22/20 24 05/22/2024 CBC/C OMPLE TE BLD COUNT W/DIF F eosinophils, absolute count 0.14 x10'3 /uL 0.02-0 .53 Not Available [facility] (Lab) [address] [place], [address], 05/22/2024 18:40:10 05/22/20 24 05/22/2024 CBC/C OMPLE TE BLD COUNT W/DIF F basophils, absolute count 0.04 x10'3 /uL 0.01-0 .08 Not Available [facility] (Lab) [address] [place], [address], 05/22/2024 18:40:10 05/22/20 24 05/22/2024 CBC/C OMPLE TE BLD COUNT W/DIF F immature granulocytes ,absolute 0.00 x10'3 /uL 0.00-0 .05 Not Available [facility] (Lab) [address] [place], [address], 05/22/2024 18:40:10 05/22/20 24 05/22/2024 CBC/C OMPLE TE BLD COUNT W/DIF F nucleated red blood cells 0.0 % -0 Not Available [facility] (Lab) [address] [place], [address], 05/22/2024 18:40:10 05/22/20 24 05/22/2024 CBC/C OMPLE TE BLD COUNT W/DIF F NRBC# 0.00 x10'3 /uL Not Available [facility] (Lab) [address] [place], [address], 05/22/2024 18:40:10 05/22/20 24 05/22/2024 T4 FREE free T4 0.89 NG/dL 0.78-2 .19 Not Available [facility] (Lab) [address] [place], [address], 05/22/2024 19:05:01 05/22/20 24 05/22/2024 TSH thyroid-stim ulating hormone 1.610 uIU/m L 0.465- 4.680 Not Available [facility] (Lab) [address] [place], [address], 05/22/2024 19:47:59 05/22/20 24 05/22/2024 VITAM IN B12 (ELAINE CAREY ) vb12 327 pg/mL 239-93 1 Not Available [facility] (Lab) [address] [place], [address], 05/22/2024 19:56:26 05/22/20 24 05/22/2024 FOLAT E, SERUM /PLAS MA folate 5.08 NG/mL 2.76-2 0.0 Not Available [facility] (Lab) [address] [place], [address], 05/22/2024 19:56:27 05/22/20 24 05/22/2024 VITAM IN D 25-HY DROXY vd25oh 34.3 NG/mL 30-100 Vitam in D Statu s: Defic ient: <20 ng/mL Insuf ficie nt: 20-29 ng/mL Suffi cient : 30-10 0 ng/mL Not Available [facility] (Lab) [address], [place], [address], 05/22/2024 20:53:04 05/09/20 24 05/03/2024 CT, brain , w/o contr ast No observ ation record ed. [facility] Not Available 2023 16:33:25 05/09/20 24 05/03/2024 imagi ng/di agnos tic resul t No observ ation record ed. [facility] Not Available 2023 16:39:14 06/04/20 24 06/04/2024 audio gram + tympa nogra m No observ ation record ed. [email or web address] [facility] [address] [place], [address], 06/04/2024 16:23:51 06/05/20 24 06/05/2024 audio gram + tympa nogra m No observ ation record ed. BARCODE [facility] [address], [place], [address], 06/05/2024 15:23:10 07/14/20 24 07/13/2024 MRI, brain , w/o contr ast No observ ation record ed. [facility] [address], [place], [address], 07/14/2024 09:40:54 07/27/20 24 DEXA, axial skele ton [facility] [address] [place] [address] Patien t Name: BRUNA COBB ion #: [id number] Sex: F : 1950 4 Dictat ed By: Casey Matthew Attend ing Physic tez: AMALIA KIEL EVANS Physic tez: AMALIA EVANS KOLEGALILEA Rock Exam Date: 2023 13:15 PM Exam Name: XR DEXA AXIAL/ HIP/PE LVIS/S PINE Admitt ing Diagno sis(es ): INDICA TION: 73 years old, Female ; screen ing. Postme nopaus al DEXA SCAN: BONE DENSIT Y REPORT : AP SPINE (L1-L4 ) : T Score: 0.4 LEFT FEMORA L NECK : T Score: -1.8 RT FEMORA L NECK : T Score: -1.4 LEFT HIP TOTAL : T Score: -1.6 RT HIP TOTAL : T Score: -1.1 TOTAL BILAT HIP AVG: T Score: -1.3 10 YEAR FRACTU RE RISK* Not report ed IMPRES JAZMIN: Osteop enia bilate ral femurs ------ ------ ------ ------ ------ ------ ------ ------ ----- *FRAX versio n 3.08. Fractu re probab ility calcul ated for an untrea ekaterina patien t. Fractu re probab ility may be lower if the patien t has receiv ed treatm ent. T-scor e: compar raómn by standa rd deviat ion (SD) to a young adult popula tion, Page 1 [facility] [place] [address] Patien t Name: BRUNA COBB Access ion #: [id number] Sex: F : 1950 4 Dictat ed By: Casey Matthew Attend ing Physic tez: KIEL Rock SHAWNEEKIESHA palacios Physic tez: AMALIA NATHAN KOLEGALILEA Rock Exam Date: 2023 13:15 PM Exam Name: XR DEXA AXIAL/ HIP/PE LVIS/S PINE Admitt ing Diagno sis(es ): matche d for sex and ethnic ity (used for postme nopaus al women and men >50 years) and classi fied by WHO criter ia. -1.0: normal <-1.0 to >-2.5: osteop enia -2.5: osteop orosis -2.5 plus fragil ity fractu re: severe osteop orosis Z-scor e: compar ed by SD to an age, sex, and ethnic ity popula tion (used for premen opausa l women, men <50 years, and childr en instea d of T-scor e WHO criter ia 4) <-2.0: below expect ed range/ low bone densit y for age, and a cause should be sought Electr onical ly Signed by: Casey Matthew at 2023 13:35: 51 PM Page 2 [facility] (Imaging) [address] [place], [address], 07/27/2024 14:38:15 07/27/20 24 07/27/2024 DEXA, axial skele ton No observ ation record ed. [facility] [address] [place], [address], 07/27/2024 14:45:48 08/21/20 24 08/21/2024 imagi ng/di agnos tic resul t No observ ation record ed. [facility] [address], [place], [address], 08/21/2024 17:59:14 Result Notes None recorded. Problems Name Problem SNOMED Code Status Onset Date Resolution Date Notes Provider Name and Address Organization Details Recorded Time Low back pain 260965014 Active 2021 Not Available [facility] 4 05:18:11 Vitamin D deficiency 27765329 Active 2022 Not Available [facility] 4 05:18:11 Hyperlipid emia 87977466 Active 2021 Not Available [facility] 4 05:18:11 Diarrhea 69759762 Active 2021 Not Available [facility] 4 05:18:11 Leukopenia 71196924 Active 2022 Not Available [facility] 4 05:18:11 Seizure 65931698 Active 2021 Not Available [facility] 4 05:18:11 Hypothyroi dism 91971708 Active 2022 Not Available [facility] 4 05:18:11 Normocalce arnold primary hyperparat hyroidism 6667821568177 50224 Active 2022 Not Available [facility] 4 05:18:11 Skin lesion 03090386 Active 2022 Not Available [facility] 4 05:18:11 Essential hypertensi on 14843522 Active 2022 Not Available [facility] 4 05:18:11 Asthma 273004353 Active 2022 Not Available [facility] 4 05:18:11 Visual impairment 545814365 Active 2022 Not Available [facility] 4 05:18:11 Osteopenia 168751985 Active 2022 Not Available [facility] 4 05:18:11 Liver enzymes level above reference range 185734850 Active 2022 Not Available [facility] 4 05:18:11 Vertigo 974710588 Active 2023 Justine Burgess MA null, [facility] [employer] 4 12:52:04 Benign paroxysmal positional vertigo 645347378 Active 2023 Sun Rush MD [address], [place], [address] , [employer] [facility] [employer] 4 12:17:11 Anti-nucle ar factor detected 542387858 Active 2023 Ang rock MD [address], [address], [place], [address] , [employer] [facility] [employer] [facility] 4 19:15:11 Upper respirator y infection 68206988 Active 2024 Ang rock MD [address], [place] [address], [place], [address] , [facility] 15:07:18 Problem Notes None recorded. Procedures Surgical History Date Name Laterality Status Provider Name and Address Organization Details Recorded Time 10/03/20 Medicare Wellness CPT Code, subsequent completed Mihir Carreon LPN [facility] 10/03/2024 08:23:22 06/13/20 Medicare Wellness CPT Code, Initial completed Janine Soto RN [facility] 06/13/2023 12:23:37 Hysterectomy completed Not Available [facility] 12/15/2022 05:05:00 repair of abdominal fistula completed Not Available [facility] 12/15/2022 05:05:00 Imaging Results Imaging Date Name Status LastModified by Organiz ation Details LastModified Time 05/03/2024 CT, brain, w/o contrast active [facility] Information not available 05/09/2024 16:33:25 05/03/2024 imaging/diagnos tic result active [facility] Information not available 05/09/2024 16:39:14 06/04/2024 audiogram + tympanogram completed [email or web address] [facility] [address] [place], [address], 06/04/2024 16:23:51 06/05/2024 audiogram + tympanogram completed [facility] [address], [place], [address], 06/05/2024 15:23:10 07/13/2024 MRI, brain, w/o contrast active [facility] [address], [address], 07/14/2024 09:40:54 07/27/2024 DEXA, axial skeleton active INTER[facility] (Imaging) [address], [place], [address], 07/27/2024 14:38:15 07/27/2024 DEXA, axial skeleton active [facility] [address], [place], [address], 07/27/2024 14:45:48 08/21/2024 imaging/diagnos tic result active [facility] [address], [place], [address], 08/21/2024 17:59:14 Procedure Notes None recorded. Medical Equipment None Reported. Allergies No known drug allergies Medications Name Sig Start Date Stop Date Status Note LastModified by Organization Details LastModified Time amoxicill in 500 mg capsule TAKE 1 CAPSULE BY MOUTH EVERY 8 HOURS UNTIL GONE 03/25 completed Not Available Not Available Not Available Miralax 17 gram/dose oral powder one one capful in liquid daily 2021 active Not Available Not Available Not Avai lable atorvasta tin 40 mg tablet TAKE 1 TABLET BY MOUTH EVERY DAY active Not Available Not Available No t Available atorvasta tin 20 mg tablet Take 1 tablet every day by oral route for 90 days. active Not Available Not Available No t Available pravastat in 40 mg tablet Take 1 tablet every day by oral route for 90 days. active Not Available Not Available No t Available cephalexi n 250 mg capsule Take 1 capsule every 6 hours by oral route for 7 days. active Not Available Not Available No t Available meloxicam 15 mg tablet TAKE 1 TABLET BY MOUTH EVERY DAY 01/27 completed Not Available Not Available Not Available prednison e 20 mg tablet TAKE 3 TABLETS BY MOUTH ONCE DAILY FOR 5 DAYS 06/13 completed Not Available Not Available Not Available phenytoin sodium extended 100 mg capsule TAKE 3 CAPSULES EVERY DAY BY MOUTH FOR 90 DAYS active Not Available Not Available No t Available amlodipin e 5 mg tablet TAKE 1 TABLET BY MOUTH EVERY DAY active Not Available Not Available No t Available meloxicam 7.5 mg tablet Take 1 tablet twice a day by oral route as needed for 30 days. 02/24 completed Not Available Not Available Not Available meclizine 25 mg tablet TAKE 1 TABLET TWICE A DAY BY ORAL ROUTE NEEDED. 05/17 completed Not Available Not Available Not Available amlodipin e 10 mg tablet TAKE ONE TABLET BY MOUTH ONCE DAILY active Not Available Not Available No t Available benzonata te 100 mg capsule TAKE 1 CAPSULE BY MOUTH EVERY 8 HOURS NEEDED 06/13 completed Not Available Not Available Not Available cephalexi n 500 mg capsule TAKE 1 CAPSULE BY MOUTH EVERY 12 HOURS FOR 10 DAYS 02/17 completed Not Available Not Available Not Available Viactiv 500 mg-100 unit-40 mcg chewable tablet Take 1 tablet every day by oral route. active Not Available Not Available No t Available pravastat in 20 mg tablet Take 1 tablet every day by oral route for 90 days. 11/01 completed changed to rosuvast atin 11/01/22 Not Available Not Available Not Available Unithroid 25 mcg tablet TAKE 1 TABLET BY MOUTH EVERY DAY IN THE MORNING 01/02 completed patient just stopped taking it Not Available Not Available Not Available ergocalci ferol (vitamin D2) 1,250 mcg (50,000 unit) capsule TAKE ONE CAPSULE ONCE A WEEK FOR 8 WEEKS 01/27 completed Not Available Not Available Not Available fluticaso ne 100 mcg-salme terol 50 mcg/dose blistr powdr for inhalatio n INHALE 1 PUFF TWICE A DAY 10/03 completed Not Available Not Available Not Available albuterol sulfate HFA 90 mcg/actua tion aerosol inhaler INHALE 2 PUFFS EVERY 4 HOURS BY INHALATI ON ROUTE. 01/02 completed Not Available Not Available Not Available amoxicill in 875 mg-potass ium clavulana te 125 mg tablet PO BID x 7 days 12/02 completed Not Available Not Available Not Available rosuvasta tin 20 mg tablet Take 1 tablet every day by oral route. active Not Available Not Available No t Available rosuvasta tin 40 mg tablet TAKE 1 TABLET BY MOUTH EVERY DAY (STOP PRAVASTA TIN) 06/13 completed only taking half Not Available Not Available Not Available Vitamin D 2000IU qd 12/13 completed Not Available Not Available Not Available Centrum Silver TK 1T PO QD 12/02 completed Not Available Not Available Not Available cholecalc iferol (vitamin D3) 1,250 mcg (50,000 unit) capsule Take 1 capsule every week by oral route for 60 days. 01/02 completed Not Available Not Available Not Available Citracal + D Maximum 06/13 completed Not Available Not Available Not Available B12 1000 mcg daily active Not Available Not Available No t Available Vitamin D3 125 mcg (5,000 unit) tablet Take 1 tablet every day by oral route. 09/02 completed Not Available Not Available Not Available Dulera 100 mcg-5 mcg/actua tion HFA aerosol inhaler INHALE 2 PUFFS EVERY DAY BY INHALATI ON ROUTE NEEDED. 10/03 completed Not Available Not Available Not Available Airsupra 90 mcg-80 mcg/actua tion HFA aerosol inhaler PLEASE SEE ATTACHED FOR DETAILED DIRECTIO NS active Not Available Not Available No t Available Vitals Date Recorded Body height Body mass index (BMI) Body weight Body temperature Heart rate Systolic blood pressure Diastolic blood pressure Provider Name and Address Organization Details Last Updated DateTime 4 162.56 cm 30.6 kg/m2 02218.4 4 g 97.3 [degF] 66 /min 118 mm[Hg] 70 mm[Hg] Sravani Galdamez [facility] [employer] [facility] 4 11:55:28 Date Recorded Body height Body mass index (BMI) Body weight Body temperature Provider Name and Address Organization Details Last Updated DateTime 05/17/2024 162.56 cm 29.6 kg/m2 80728.61 g 97.7 [degF] Angie [place] [facility] [employer] [facility] 05/17/2024 12:03:55 Date Recorded Body height Body mass index (BMI) Body weight Body temperature Heart rate Systolic blood pressure Diastolic blood pressure Provider Name and Address Organization Details Last Updated DateTime 4 162.56 cm 28.5 kg/m2 55651.3 3 g 97.6 [degF] 72 /min 134 mm[Hg] 72 mm[Hg] Sravani Galdamez [facility] [employer] [facility] 4 13:55:40 Date Recorded Body height Body mass index (BMI) Body weight Body temperature Heart rate Respiratory rate Oxygen saturation Oxygen saturation in Arterial blood by Pulse oximetry Pain severity - 0-10 verbal numeric rating [Score] - Reported Systolic blood pressure Diastolic blood pressure Provider Name and Address Organization Details Last Updated DateTime 4 162.56 cm 27.5 kg/m2 88839.7 8 g 97.5 [degF] 66 /min 16 /min 96 % 96 % 0 148 mm[Hg] 80 mm[Hg] Mihir Carreon LPN [place] [facility] [employer] 4 14:01:37 Date Recorded Body height Body mass index (BMI) Body weight Body temperature Heart rate Systolic blood pressure Diastolic blood pressure Provider Name and Address Organization Details Last Updated DateTime 5 162.56 cm 27.6 kg/m2 00068.3 7 g 97.2 [degF] 66 /min 128 mm[Hg] 68 mm[Hg] [facility] 5 14:55:20 Social History Question Answer Notes LastModified by Organization Details LastModified Time Tobacco Smoking Status Never Smoker Not Available [employer] 12/15/2022 05:03:39 Do You Have An Advance Directive? Yes [id number] Information not available 12/15/2022 What Is Your Level Of Alcohol Consumption? None [id number] Information not available 12/15/2022 Do You Wear A Helmet When Biking? No Does Not Bike [email or web address] Information not available 10/03/2024 Are You Blind Or Do You Have Difficulty Seeing? No [id number] Information not available 12/15/2022 What Is Your Level Of Caffeine Consumption? Occasional [id number] Information not available 12/15/2022 In The 14 Days Before Symptom Onset, Have You Had Close Contact With A Laboratory-confi rmed COVID-19 While That Case Was Ill? No [id number] Information not available 12/15/2022 In The 14 Days Before Symptom Onset, Have You Had Close Contact With A Person Who Is Under Investigation For COVID-19 While That Person Was Ill? No [id number] Information not available 12/15/2022 Are You Currently Employed? No Retired Information not available 10/03/2024 Are You Deaf Or Do You Have Serious Difficulty Hearing? No MIGRATION.0301 [id number] Information not available 12/15/2022 What Type Of Diet Are You Following? REGULAR MIGRATION.0301 [id number] Information not available 12/15/2022 What Is The Highest Grade Or Level Of School You Have Completed Or The Highest Degree You Have Received? [id number] MIGRATION.030 [id number] Information not available 12/15/2022 Have There Been Any Changes To Your Family Or Social Situation? No Patient Bought New House So Grandson Could Live With Her. [email or web address] Information not available 10/03/2024 What Is The Fluoride Status Of Your Home? Unknown MIGRATION.030 376406 Information not available 12/15/2022 Are There Any Guns Present In Your Home? No MIGRATION.030 446490 Information not available 12/15/2022 Do You Use Insect Repellent Routinely? No MIGRATION.030 217003 Information not available 12/15/2022 [facility] M[facility].030 197899 Information not available 12/15/2022 Presence Of Domestic Violence No Information not available 06/13/2023 Guns Present In The Home? No Information not available 06/13/2023 Are You Able To Care For Yourself? Yes Information not available 06/13/2023 Are You Blind Or Do Yo Have Difficulty Seeing? No Information not available 06/13/2023 Are You Deaf Or Do You Have Serious Difficulty Hearing? No Information not available 06/13/2023 General Stress Level? Low Information not available 06/13/2023 Live Alone Of With Others? Alone Information not available 06/13/2023 Do You Have A Medical Power Of Oleomargarine Maker? Yes MIGRATION.030 267875 Information not available 12/15/2022 What Was The Date Of Your Most Recent Tobacco Screening? 01/02/2025 Information not available 01/02/2025 Do You Have Any Pets? Yes Dog [email or web address] Information not available 10/03/2024 What Is Your Relationship Status? MIGRATION.030 977396 Information not available 12/15/2022 Do You Use Your Seat Belt Or Car Seat Routinely? Yes MIGRATION.030 742783 Information not available 12/15/2022 Do You Have Smoke And Carbon Monoxide Detectors In Your Home? Yes MIGRATION.030 827154 Information not available 12/15/2022 Are You Passively Exposed To Smoke? No MIGRATION.0301 115592 Information not available 12/15/2022 Are There Any Smokers In Your House? No MIGRATION.0301 700235 Information not available 12/15/2022 What Types Of Sporting Activities Do You Participate In? None MIGRATION.0301 587823 Information not available 12/15/2022 Do You Feel Stressed (tense, Restless, Nervous, Or Anxious, Or Unable To Sleep At Night)? [id number] MIGRATION.0301 177260 Information not available 12/15/2022 Do You Use Any Illicit Or Recreational Drugs? No MIGRATION.0301 627562 Information not available 12/15/2022 Do You Use Sunscreen Routinely? Yes MIGRATION.0301 868768 Information not available 12/15/2022 Has Tobacco Cessation Counseling Been Provided? No MIGRATION.0301 568311 Information not available 12/15/2022 Have You Recently Traveled Abroad? No MIGRATION.0301 962578 Information not available 12/15/2022 Do You Have Any Dietary Restrictions? No MIGRATION.0301 656051 Information not available 12/15/2022 Do You Or Have You Ever Used Any Other Forms Of Tobacco Or Nicotine? No MIGRATION.0301 052366 Information not available 12/15/2022 Sex: Female Functional Status Question Answer Note LastModified by One-Songat ion Details LastModified Time Do you have difficulty walking or climbing stairs? No MIGRATION.1399334 026 Information not available 12/15/2022 Do you have transportation difficulties? No MIGRATION.6967106 026 Information not available 12/15/2022 Are you able to walk? YESWOREST MIGRATION.7577110 026 Information not available 12/15/2022 Do you have difficulty doing errands alone? No MIGRATION.4888311 026 Information not available 12/15/2022 Are you able to care for yourself? Yes MIGRATION.7403205 026 Information not available 12/15/2022 Do you have difficulty dressing or bathing? No MIGRATION.9960387 026 Information not available 12/15/2022 What is your exercise level? None Information not available 06/13/2023 Mental Status Question Answer Note LastModified by Buffer ion Details LastModified Time Do you have difficulty concentrating, remembering or making decisions? No MIGRATION.[id number] 6 Information not available 12/15/2022 Family History Relationship Description Onset Age of this Age Resolved Age Notes LastModified by Organization Details LastModified Time Son Malignant neoplastic disease MIGRATION.850 [id number] Not available 12/15/2022 05:05:05 Notes:NO ENT Medical History Condition Response NERVE DISEASE N BLINDNESS N RHEUMATIC FEVER N KIDNEY STONES N BLADDER PROBLEMS N MRSA N OTHER # 1 N POLIO N LUNG DISEASE/DISORDER N HISTORY OF DRUG ABUSE N COPD N RADIATION / CHEMOTHERAPY N Other # 2 N BLOOD DISEASES N EAR OR HEARING PROBLEMS N MUMPS N SHINGLES N BOWEL PROBLEMS N DEPRESSION (INCLUDING POST ) N STROKE/TIA N ULCERS N BENIGN PROSTATIC HYPERPLASIA N MEASLES N HYPOTENSION N MYOCARDIAL INFARCTION N OBESITY N GERD/NAUSEA N ANEURYSM N URINARY/BLADDER/KIDNEY PROBLEMS N CORONARY ARTERY DISEASE (CAD) N ADDICTION CONCERNS N ENDOMETRIOSIS N Impotence N USE OF BLOOD THINNERS N SKIN PROBLEMS N GASTROINTESTINAL DISORDER N PERIPHERAL VASCULAR DISEASE N MUSCLE,JOINT OR BONE PROBLEMS N GASTROINTESTINAL BLEEDING N BLOOD CLOTS N ASTHMA Y CATARACTS N ERECTILE DYSFUNCTION N VARICOSITIES N GI PROBLEMS N Low Testosterone N INFERTILITY N AIDS/HIV N CHEMOTHERAPY / RADIATION N LIVER DISEASE N MALE HYPOGONADISM N HYPERTENSION Y Deficiency N TOURETTE'S N ANXIETY DISORDER N BLOOD TRANSFUSION N ANEMIA/BLOOD DISORDER N CHRONIC EAR INFECTIONS N BRONCHITIS N TUBERCULOSIS N GLAUCOMA N FOOT PROBLEM N DIVERTICULITIS N CHICKENPOX N SLEEP APNEA N INFECTIOUS DISEASE N HEART ARRHYTHMIA N PROSTATE N INSOMNIA N HIGH CHOLESTEROL / HYPERLIPIDEMIA Y HYPERTHYROIDISM N EYE PROBLEMS N EDEMA N CHRONIC PAIN SYNDROME N HYPOTHYROIDISM N CAROTID BLOCKAGE N CONSTIPATION N BACK / NECK PROBLEMS Y ATHEROSCLEROSIS N BREAST PROBLEMS N DIALYSIS N ECZEMA N OSTEOPOROSIS N ARTHRITIS N APPENDICITIS N DIABETES, TYPE N BAD TEETH N ENT N HEARTBURN / REFLUX N AUTISM SPECTRUM DISORDER (ASD) N HEPATITIS / LIVER DISEASE N GOUT N SLEEP DISORDER N ALZHEIMER'S DISEASE N Brain Problems N HERPES N DEMENTIA N HEADACHES/MIGRAINES N SEIZURES/EPILEPSY Y VASCULAR DISEASE N PACEMAKER N Blood Disorder N DIZZINESS N HEART DISEASE/HEART PROBLEMS N KIDNEY DISEASE N MULTIPLE SCLEROSIS N CARDIAC ARRHYTHMIA N CANCER: SPECIFY N ATRIAL FIBRILLATION N Gall Stones N PULMONARY EMBOLISM N AUTOIMMUNE DISEASE N Gynecological HistoryNo gynecological history recorded. Obstetrics History GPAL:G 0 P 0 0 0 0 Immunizations Vaccine Type Date Status Note Provider Nam e and Address Organization Details Recorded Time zoster recombinant 3 completed Mihir Carreon LPN null, [place] [facility] 10/03/2024 12:51:19 zoster recombinant 3 [facility] 12:51:19 RSV, recombinant, protein subunit RSVpreF, adjuvant reconstituted, 0.5 mL, PF 4 completed [facility] 10/03/2024 12:51:19 COVID-19, mRNA, LNP-S, bivalent, PF, 50 mcg/0.5 mL or 25mcg/0.25 mL dose 2 completed [facility] 10/03/2024 12:51:19 COVID-19, mRNA, LNP-S, PF, 100 mcg/0.5mL dose or 50 mcg/0.25mL dose 1 completed [facility] 10/03/2024 12:51:19 COVID-19, mRNA, LNP-S, PF, 100 mcg/0.5mL dose or 50 mcg/0.25mL dose 1 completed [facility] 10/03/2024 12:51:19 pneumococcal polysaccharide PPV23 8 completed Not Available [facility] 11/02/2023 05:18:11 Pneumococcal conjugate PCV 13 6 completed Not Available [facility] 11/02/2023 05:18:11 COVID-19, mRNA, LNP-S, PF, 30 mcg/0.3 mL dose 1 completed Mihir Carreon LPN greyson, [facility] 10/03/2024 12:51:19 Influenza, high-dose, trivalent, PF 0 completed Mihir Carreon LPN null, [facility] 10/03/2024 12:51:19 Influenza, high-dose, quadrivalent, PF 2 completed Not Available [facility] 11/02/2023 05:18:11 Influenza, high-dose, quadrivalent, PF completed Not Available [facility] 11/02/2023 05:18:11 Past Encounters Encounter ID Performer Location Encounter Start Date Encounter Closed Date Diagnosis/Indication Diagnosis SNOMED-CT Code Diagnosis ICD10 Code Diagnosis Note [id number] [facility] [place] [address] [place] [address] y , [place] [address] 03/25/2021 00:00:00 03/25/2021 15:25:38 [id number] [facility] [place] [address] [place] [address] y , [place] [address] 07/22/2021 00:00:00 08/10/2021 17:52:33 [id number] [facility] [place] [address] [place] [address] y , [place] [address] 09/02/2021 00:00:00 09/02/2021 12:07:00 [id number] [facility] [place] [address] [place] [address] y , [place] [address] 12/02/2021 00:00:00 12/02/2021 16:59:28 [id number] [facility] [place] [address] [place] [address] [place] [address] 02/17/2022 00:00:00 02/17/2022 12:33:10 [id number] [facility] [place] [address] [place] [address] [place] [address] 03/31/2022 00:00:00 03/31/2022 16:11:56 [id number] [facility] [place] [address] [place] [address] [place] [address] 08/02/2022 00:00:00 08/02/2022 12:54:15 [id number] [facility] [place] [address] [place] [address] 09/06/2022 00:00:00 09/06/2022 14:52:58 [id number] [facility] Internal Med [place] [address] [facility] y , [place] [address] 12/13/2022 00:00:00 12/13/2022 18:14:35 [id number] Isha Whiting MD [facility] [place] [address] [place] [address] 01/27/2023 12:08:08 01/27/2023 12:50:11 Hypothyroidism 44464131 E03.9 TSH and FT4 in low range with fatigue and constipati on (has to take mirilax to regulate her stools) Trial on unithroid 25 mcg daily. She was reminded to take her unithroid on empty stomach with glass of water and wait one hour to eat or have her coffee in morning and up to 4 hours if ever taking any heartburn or reflux medication s to help optimize absorption . Discussed paleo like diet with restrictio n of GMOs to help with energy and to optimize absorption of vitamins and minerals and reduce inflammati on. Normocalce arnold primary hyperparathyroidism [id number] E21.0 She has evidence of elevated PTH hormone in setting of normal calcium-sh e has mild bone loss- will monitor her bone density per insurance coverage and patient aware to continue with calcium and vitamin D supplement ation in addition to daily weight bearing exercise for bone health. Spent up to 26 minutes preparing to see the patient (eg, review of tests), obtaining and/or reviewing separately obtained history, performing a medically appropriat e examinatio n and evaluation , counseling and educating the patient, ordering medication s, tests, along with documentin g clinical informatio n in the electronic health record, independen tly interpreti ng results and communicat ing results to the patient. RTC in 6 months. Patient was provided a handwritte n lab order which contains our fax number. If she chooses to go outside of the [facility] system to obtain labwork she was advised to provide our fax number and my informatio n to the lab she will be obtaining labwork from in order to have her labs properly forwarded over for me to review so there is no loss of follow up due to use of outside network. She was also advised to contact our clinic informing us that she has completed her labwork so we are aware we will need to reach out to the appropriat e laboratory to request her results be forwarded to us so I might have the ability to review and make further medical decision making in her case. She voiced understand ing. [id number] Ang rock MD [facility] [place] [address] , [place] [address] 06/13/2023 11:50:12 06/13/2023 12:43:45 Screening - NAD 330840081 Z13.9 Cologuard 03/30/2021 : +veC-scope 05/20/2021 : Dr Carter next in 10 years Mammogram: 10/23/2020 : Next in one yearMammog eulalio 10/27/2021 : NegMammogr am: 10/28/2022 : Neg DEXA: 10/23/2020 : WNL PAP: Dr Elliott 11/10/2020 Get yearly flu shotGet tdap if not doneUTD on the #13 09/2016 and #23 12/[address], [address] Alvarez do shingles vaccineUTD on COVID 19 vaccine RTC in 3 monthsDo labsER if worseShe did verbalize his understand ing of the above Low back pain [id number] M54.50 Xray L Spine 02/16/2022 , Xray Hips: 02/16/2022 : Discussed with patientRel uctant to see ortho or do PT, will notify in one week, if not better will see ortho OV 03/31/2022 :Does well, but wants to see a back surgeon, will refer to Dr Ernandez, not keen on doing PT just yetNot on any meloxicam now OV 08/02/2022 :Did see Dr Ernandez, does not want to see him anymore OV 12/13/2022 :Does well now OV 06/13/2023 : Does well Skin lesion 97716428 L98 .9 Dr Cortez 09/28/2021 Essential hypertension 08895746 I10 On amlodipine 5mg dailyDoes wellGet a referral to Dr Juarez Hyperlipidemia 32456135 E78.5 Not on pravastati nOn rosuvastat in 40mg daily, but is taking 1/2 tabletMore diet and exercise, does not want to take an increased dose, states has been eating a lot of sweetsDo labs Asthma 846605953 J45.90 9 On duleraDoes wellNo complaints now Seizure 97066297 R56.9 On phenytoin 100mg 3 caps daily Seizure free since age 13 years so for almost 60 years, reluctant to see neurology at this timeRenew as needed Liver enzy mes level above reference range 352089774 R74.01 S/p US liver 05/04/2021 S/p HIDA 06/12/2021 Dr Alvarado 09/29/2021 Visual impairment 744604 003 H54.7 Needs to get her eyes checked Refer to Dr Childress Osteopenia 445063525 M85 .80 Seen by endocrine referred by Dr Ernandez, [facility] to see an [facility], refer to Dr Henok Whiting 09/06/2022 , 01/27/2023 , next 06/27/2023 Leukopenia 04151049 D72. 819 Get B12 and folate level, also refer to Dr Garber Vitamin D deficiency 347 85665 E55.9 Get on vit d weekly and get lab Screening mammography 24 535930 Z12.31 Screening for osteoporosis 992196865 Z13.820 [facility] th examination 565378790 Z00.00 Screening for disorder 542599129 Z13.9 Diarrhea 83087718 R19.7 Getting better, is hydrating, no abdominal pain, no N/V, no blood in stool or urine, good appetite, ate a salad last week and feels that this caused the diarrhea, notify of getting worse [id number] Isha Whiting MD [facility] [place] [address] [place] [address] 06/27/2023 12:09:39 06/27/2023 13:58:00 Hypothyroidism 63920318 E03.9 TSH and FT4 now in ideal range- improved since addition of low dose unithroid. Continue on unithroid 25 mcg daily. She was reminded to take her unithroid on empty stomach with glass of water and wait one hour to eat or have her coffee in morning and up to 4 hours if ever taking any heartburn or reflux medication s to help optimize absorption . Discussed paleo like diet with restrictio n of GMOs to help with energy and to optimize absorption of vitamins and minerals and reduce inflammati on. Normocalce arnold primary hyperparathyroidism 0216446064 71560221 E21.0 She has evidence of elevated PTH hormone in setting of normal calcium-sh e has mild bone loss-hawa nue on vitamin D 22467 IU weekly x 2 months and recommend she transition to 5000 IU D3 daily as she is not tolerating the weekly dose/cause s mild GI upset along with calcium 1200 mg daily for bone health. Recommende d continued daily weight bearing exercise for bone health. Spent up to 26 minutes preparing to see the patient (eg, review of tests), obtaining and/or reviewing separately obtained history, performing a medically appropriat e examinatio n and evaluation , counseling and educating the patient, ordering medication s, tests, along with documentin g clinical informatio n in the electronic health record, independen tly interpreti ng results and communicat ing results to the patient. RTC in 6 months. Patient was provided a handwritte n lab order which contains our fax number. If she chooses to go outside of the [facility] system to obtain labwork she was advised to provide our fax number and my informatio n to the lab she will be obtaining labwork from in order to have her labs properly forwarded over for me to review so there is no loss of follow up due to use of outside network. She was also advised to contact our clinic informing us that she has completed her labwork so we are aware we will need to reach out to the appropriat e laboratory to request her results be forwarded to us so I might have the ability to review and make further medical decision making in her case. She voiced understand ing. Osteopenia 786408999 M85 .80 Continue monitoring of parathyroi d function- her serum calcium is in range- there is no clear indication that normocalce arnold parathyroi d ds causes significan t bone loss- recommend continued bone density scans per routine recommenda tions- every 2 years and continue use of vitamin D and calcium supplement ation for bone health. Spent up to 25 minutes preparing to see the patient (eg, review of tests), obtaining and/or reviewing separately obtained history, performing a medically appropriat e examinatio n and evaluation , counseling and educating the patient, ordering medication s, tests, along with documentin g clinical informatio n in the electronic health record, independen tly interpreti ng results and communicat ing results to the patient. Patient can be followed by PCP - she/he is aware of my resignatio n and last day of July 29. If needed his/her PCP can refer patient to another endocrinol ogist in the area. All questions /concerns answered and refills necessary at visit today. [id number] Ang rock MD [facility] [place] [address] [facility] [place] [address] 12/12/2023 11:48:44 12/12/2023 12:27:11 Screening - NAD 744232566 Z13.9 Cologuard 03/30/2021 : +veC-scope 05/20/2021 : Dr Carter next in 10 years Mammogram: 10/23/2020 : Next in one yearMammog eulalio 10/27/2021 : NegMammogr am: 10/28/2022 : NegMammogr am: 10/31/2023 : Neg DEXA: 10/23/2020 : WNL PAP: Dr Elliott 11/10/2020 Get yearly flu shotGet tdap if not doneUTD on the #13 09/2016 and #23 12/[address], [address] Alvarez do shingles vaccineUTD on COVID 19 vaccineCan do RSV vaccine RTC in 3 monthsDo labsER if worseShe did verbalize his understand ing of the above Low back pain 101410067 M54.50 Xray L Spine 02/16/2022 , Xray Hips: 02/16/2022 : Discussed with patient Did see Dr Ernandez, does not want to see him anymore Skin lesion 89348191 L98 .9 Dr Cortez 09/28/2021 Essential hypertension 17563593 I10 On amlodipine 5mg dailyDoes well Dr Baron 06/17/2023 Hyperlipidemia 89728558 E78.5 Not on pravastati nOn rosuvastat in 40mg daily, takes 1/2 tabletMore diet and exercise, does not want to take an increased dose, states has been eating a lot of sweetsDo labs Asthma 637077903 J45.90 9 On duleraDoes wellNo complaints now Seizure 75158288 R56.9 On phenytoin 100mg 3 caps daily Seizure free since age 13 years so for almost 60 years, reluctant to see neurology at this timeRenew as needed Liver enzy mes level above reference range 568369928 R74.01 S/p US liver 05/04/2021 S/p HIDA 06/12/2021 Dr Alvarado 09/29/2021 Visual impairment 543339 003 H54.7 Needs to get her eyes checked Refer to Dr Childress Osteopenia 413790996 M85 .80 Dr Whiting 09/06/2022 , 01/27/2023 Leukopenia 43783117 D72. 819 Get B12 and folate level, also refer to Dr Garber Vitamin D deficiency 347 54193 E55.9 Get on vit d weekly and get lab Screening for osteoporosis 814423869 Z13.723 [id number] Sun Rush MD [facility] E[facility] [place] [address] [place] [address] 05/17/2024 11:54:49 05/18/2024 08:43:25 Benign paroxysmal positional vertigo 395837508 H81.12 [id number] Ang rock MD [facility] [address] [facility] [place] [address] 06/13/2024 13:38:32 06/13/2024 14:27:20 Screening - NAD 516330249 Z13.9 Cologuard 03/30/2021 : +veC-scope 05/20/2021 : Dr Carter next in 10 years Mammogram: 10/23/2020 : Next in one yearMammog eulalio 10/27/2021 : NegMammogr am: 10/28/2022 : NegMammogr am: 10/31/2023 : Neg DEXA: 10/23/2020 : WNL PAP: Dr Elliott 11/10/2020 Get yearly flu shotGet tdap if not doneUTD on the #13 09/2016 and #23 12/[address], [address] Alvarez do shingles vaccineUTD on COVID 19 vaccineCan do RSV vaccine RTC in 3 monthsDo labsER if worseShe did verbalize his understand ing of the above Low back pain 154379272 M54.50 Xray L Spine 02/16/2022 , Xray Hips: 02/16/2022 : Discussed with patient Did see Dr Ernandez, does not want to see him anymore Skin lesion 31906820 L98 .9 Dr Cortez 09/28/2021 Essential hypertension 24603178 I10 On amlodipine 5mg dailyDoes well Dr Baron 06/17/2023 Hyperlipidemia 47051283 E78.5 Not on pravastati nOn rosuvastat in 40mg daily, takes 1/2 tabletMore diet and exercise, does not want to take an increased dose, states has been eating a lot of sweets, understand s the risks for elevated lipidsDo labs Asthma 321689619 J45.90 9 On dulera, states that this is expensive, will change to advairDoes wellNo complaints now Seizure 35095092 R56.9 On phenytoin 100mg 3 caps daily Seizure free since age 13 years so for almost 60 years, reluctant to see neurology at this timeRenew as needed Liver enzy mes level above reference range 915898123 R74.01 S/p US liver 05/04/2021 S/p HIDA 06/12/2021 Dr Alvarado 09/29/2021 Visual impairment 843335 003 H54.7 Needs to get her eyes checked Refer to Dr Childress Osteopenia 833419306 M85 .80 Dr Whiting 09/06/2022 , 01/27/2023 Leukopenia 43331196 D72. 819 Get B12 and folate level, also refer to Dr Garber Vitamin D deficiency 347 93572 E55.9 Get on vit d weekly and get lab Screening for osteoporosis 510920245 Z13.820 Hypothyroidism 65594054 E03.9 [id number] Ang rock MD [facility] [address] [address] [place] [address] 10/03/2024 13:53:59 10/03/2024 14:50:34 Screening - NAD 262830687 Z13.9 Cologuard 03/30/2021 : +veC-scope 05/20/2021 : Dr Carter next in 10 years Mammogram: 10/23/2020 : Next in one yearMammog eulalio 10/27/2021 : NegMammogr am: 10/28/2022 : NegMammogr am: 10/31/2023 : Neg DEXA: 10/23/2020 : WNLDEXA: 07/27/2024 : Osteopenia , more calcium and vit d PAP: Dr Elliott 11/10/2020 Get yearly flu shotGet tdap if not doneUTD on the #13 09/2016 and #23 12/[address], [address] Alvarez do shingles vaccineUTD on COVID 19 vaccineCan do RSV vaccine RTC in 3 monthsDo labsER if worseShe did verbalize his understand ing of the above Low back pain 353153971 M54.50 Xray L Spine 02/16/2022 , Xray Hips: 02/16/2022 : Discussed with patient Did see Dr Ernandez, does not want to see him anymore Skin lesion 39630101 L98 .9 Dr Cortez 09/28/2021 Essential hypertension 75316865 I10 On amlodipine 5mg dailyDoes well Dr Baron 06/17/2023 Hyperlipidemia 76822762 E78.5 Not on pravastati nOn rosuvastat in 40mg dailyMore diet and exercise, does not want to take an increased dose, states has been eating a lot of sweets, understand s the risks for elevated lipidsDo labs Asthma 672434866 J45.90 9 On dulera, states that this is expensive, will change to advair, today 10/03/2024 , states that she is not taking advairIs on albuterol PRNDoes wellNo complaints now Seizure 76315037 R56.9 On phenytoin 100mg 3 caps daily Seizure free since age 13 years so for almost 60 years, reluctant to see neurology at this timeRenew as needed Liver enzy mes level above reference range 696590625 R74.01 S/p US liver 05/04/2021 S/p HIDA 06/12/2021 Dr Alvaraod 09/29/2021 Visual impairment 599958 003 H54.7 Needs to get her eyes checked Refer to Dr Childress Osteopenia [id number] M85 .80 Dr Whiting 09/06/2022 , 01/27/2023 Leukopenia [id number] D72. 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 Can see rheumatolo gist, prefers to not do any referrals at this time 10/03/2024 , will f/u with Dr Garber Adult [facility] examination [id number] Z00.00 Screening for disorder 519674911 Z13.9 Screening mammography 24 373295 Z12.31 [id number] Ang rock MD [facility] [address] [place] [address] 01/02/2025 14:38:23 01/02/2025 15:21:43 Screening - NAD 459401166 Z13.9 Cologuard 03/30/2021 : +veC-scope 05/20/2021 : Dr Carter next in 10 years Mammogram: 10/23/2020 : Next in one yearMammog eulalio 10/27/2021 : NegMammogr am: 10/28/2022 : NegMammogr am: 10/31/2023 : Neg DEXA: 10/23/2020 : WNLDEXA: 07/27/2024 : Osteopenia , advised to do more ca and vit d PAP: Dr Elliott 11/10/2020 Get yearly flu shotGet tdap if not doneUTD on the #13 09/2016 and #23 12/[address], [address] Alvarez do shingles vaccineUTD on COVID 19 vaccineCan do RSV vaccine RTC in 6 months as per her wishesDo labsER if worseShe did verbalize his understand ing of the above Low back pain 789906303 M54.50 Xray L Spine 02/16/2022 , Xray Hips: 02/16/2022 : Discussed with patient Did see Dr Ernandez, does not want to see him anymore Skin lesion 59029897 L98 .9 Dr Cortez 09/28/2021 Essential hypertension 93832006 I10 On amlodipine 5mg dailyDoes well Dr Baron 06/17/2023 Hyperlipidemia 46668542 E78.5 Not on pravastati nOn rosuvastat in 40mg daily, takes 1/2 tabletMore diet and exercise, does not want to take an increased dose, states has been eating a lot of sweets, understand s the risks for elevated lipidsDo labs Asthma 666607518 J45.90 9 Not on duleraOn airsupraDo es wellNo complaints now Seizure 94439638 R56.9 On phenytoin 100mg 3 caps daily Seizure free since age 13 years so for almost 60 years, reluctant to see neurology at this timeRenew as needed Liver enzy mes level above reference range 515134389 R74.01 S/p US liver 05/04/2021 S/p HIDA 06/12/2021 Dr Alvarado 09/29/2021 Visual impairment 392860 003 H54.7 Needs to get her eyes checked Refer to Dr Childress Osteopenia [id number] M85 .80 Dr Whiting 09/06/2022 , 01/27/2023 Leukopenia 09322961 D72. 819 Get B12 and folate level, also refer to Dr Garber Keep apt with Dr Garber Vitamin D deficiency 347 31016 E55.9 Get labs Hypothyroidism 17553904 E03.9 On unithroid 25mcgs daily, not taking this, will get labsGet labs Screening mammography 24 819064 Z12.31 Upper resp iratory infection 01011389 J06.9 Her URI sx have resolved, and no diarrhea today, can to OTC imodium as needed, does not want any medMore fluidsER if worse At [facility] ed risk of exposure to Measles virus 5131674072 Z91.89 States that she would like to get tested for MMR, labs ordered Health Concerns Section Related Observation LastModified by Organization Detai ls LastModified Time None Recorded Concern Status LastModified by Organization Details LastModified Time None Recorded Advance Directives Directive Y: Payers Encounter Date Sequence Insurance Name Policy Number Policy Gross Covered Member ID Gross Member ID Guarantor Name 12/12/2023 1 [facility] (MEDICARE REPLACEMENT/A DVANTAGE - HMO) [id number] Bruna Cobb [id number] Bruna Newdanielle 05/17/2024 1 [facility] (MEDICARE REPLACEMENT/A DVANTAGE - HMO) [id number] Bruna Walkerlon [id number] Bruna Newminn 06/13/2024 1 [facility] (MEDICARE REPLACEMENT/A DVANTAGE - HMO) [id number] Bruna Yusufn [id number] Bruna Newlon 10/03/2024 1 [facility] (MEDICARE REPLACEMENT/A DVANTAGE - HMO) [id number] Bruna Chu Newlon [id number] Bruna Newlon 01/02/2025 1 [facility] (MEDICARE REPLACEMENT/A DVANTAGE - HMO) [id number] Bruna Yusufn [id number] Bruna Cobb Notes Date Note Type Note Provider Name and Address Organization Details Recorded Time 12/12/2023 text/html OV 10/17/2020:Here to establish carePast Hx:HTNHLDSeizuresRe viewed social family and surgical historyShe feels wellNeeds her meds refilledNo recent labsOV 03/25/2021:Here for her routine aptShe did do the labsShe has done the mammogram and DEXA scanDoes Alecbaldomero would like to see a jig hand as she has a mole on the L forearmOV 07/22/2021:Here for her routine aptShe is doing Daniela did the labs in 04/27/2021OV 09/02/2021:Here for ACV:Has noted a 'bump' under her left breastShe also has a mole on the backOV 12/02/2021:Here to discuss her chol medShe is doing wellOV 02/17/2022:Here for ACV:C/o LBP and piyush hip pain, none today, she did do xrays yesterdayNo N/T or weakness, no loss of bowel or bladder controlNo acute or remote trauma OV 03/31/2022:Here for her routine aptShe is doing wellLabs done on 02/15/2022 OV 08/02/2022:Here for her f/u apt, she is here with Ewelina her GD, she did do the labs, she did see Dr Ernandez, who referred him to an endocrineOV 12/13/2022:Here for her f/u apt, she feels well, she did do the labs on 11/17/2022 OV : Here for her f/u apt, she does c/o loose stools, ate a raw salad, doing better now OV 12/12/2023: Here for her f/u apt, she feels well, she did do the labs Ang Florez MD [address], [place], [address], [place] 12/12/2023 18:28:49 05/17/2024 text/html This patient reports that she has had vertigo since April 16. This is not positional but does worsened when she rolls over in bed. He had a similar episode 5 years ago. She believes that her hearing is okay. She had a CT angiogram which was normal. She agrees that this is probably the crystals. Sun Rush MD [address], [address], [place], [address], [place] 05/17/2024 12:18:30 06/13/2024 text/html OV 10/17/2020:Here to establish carePast Hx:HTNHLDSeizuresRe viewed social family and surgical historyShe feels wellNeeds her meds refilledNo recent labsOV 03/25/2021:Here for her routine aptShe did do the labsShe has done the mammogram and DEXA scanDoes Alecbaldomero would like to see a jig hand as she has a mole on the L forearmOV 07/22/2021:Here for her routine aptShe is doing Daniela did the labs in 04/27/2021OV 09/02/2021:Here for ACV:Has noted a 'bump' under her left breastShe also has a mole on the backOV 12/02/2021:Here to discuss her chol medShe is doing wellOV 02/17/2022:Here for ACV:C/o LBP and piyush hip pain, none today, she did do xrays yesterdayNo N/T or weakness, no loss of bowel or bladder controlNo acute or remote trauma OV 03/31/2022:Here for her routine aptShe is doing wellLabs done on 02/15/2022 OV 08/02/2022:Here for her f/u apt, she is here with Ewelina her GD, she did do the labs, she did see Dr Ernandez, who referred him to an endocrineOV 12/13/2022:Here for her f/u apt, she feels well, she did do the labs on 11/17/2022 OV : Here for her f/u apt, she does c/o loose stools, ate a raw salad, doing better now OV 12/12/2023: Here for her f/u apt, she feels well, she did do the labs OV 06/13/2024: Here for her f/u apt, she did do the labs on 05/22/2024 Ang Florez MD [address] [place] [address], [address], [place], [address], [place] [facility] 06/14/2024 19:26:59 10/03/2024 text/html OV 10/17/2020:Here to establish carePast Hx:HTNHLDSeizuresRe viewed social family and surgical historyShe feels wellNeeds her meds refilledNo recent labsOV 03/25/2021:Here for her routine aptShe did do the labsShe has done the mammogram and DEXA scanDoes Alecbaldomero would like to see a jig hand as she has a mole on the L forearmOV 07/22/2021:Here for her routine aptShe is doing Daniela did the labs in 04/27/2021OV 09/02/2021:Here for ACV:Has noted a 'bump' under her left breastShe also has a mole on the backOV 12/02/2021:Here to discuss her chol medShe is doing wellOV 02/17/2022:Here for ACV:C/o LBP and piyush hip pain, none today, she did do xrays yesterdayNo N/T or weakness, no loss of bowel or bladder controlNo acute or remote trauma OV 03/31/2022:Here for her routine aptShe is doing wellLabs done on 02/15/2022 OV 08/02/2022:Here for her f/u apt, she is here with Ewelina her GD, she did do the labs, she did see Dr Ernandez, who referred him to an endocrineOV 12/13/2022:Here for her f/u apt, she feels well, she did do the labs on 11/17/2022 OV : Here for her f/u apt, she does c/o loose stools, ate a raw salad, doing better now OV 12/12/2023: Here for her f/u apt, she feels well, she did do the labs OV 06/13/2024: Here for her f/u apt, she did do the labs on 05/22/2024 OV 10/03/2024: Here for her f/u apt, she feels well today, she is here for her MWV also, she did do the labs for Dr Shirlene Florez MD [address] [facility] [facility] [address], [place], [address], [place] [facility] [employer] 10/05/2024 20:53:54 01/02/2025 text/html OV 10/17/2020:Here to establish carePast Hx:HTNHLDSeizuresRe viewed social family and surgical historyShe feels wellNeeds her meds refilledNo recent labsOV 03/25/2021:Here for her routine aptShe did do the labsShe has done the mammogram and DEXA scanDoes Alecbaldomero would like to see a jig hand as she has a mole on the L forearmOV 07/22/2021:Here for her routine aptShe is doing Daniela did the labs in 04/27/2021OV 09/02/2021:Here for ACV:Has noted a 'bump' under her left breastShe also has a mole on the backOV 12/02/2021:Here to discuss her chol medShe is doing wellOV 02/17/2022:Here for ACV:C/o LBP and piyush hip pain, none today, she did do xrays yesterdayNo N/T or weakness, no loss of bowel or bladder controlNo acute or remote trauma OV 03/31/2022:Here for her routine aptShe is doing wellLabs done on 02/15/2022 OV 08/02/2022:Here for her f/u apt, she is here with Ewelina her GD, she did do the labs, she did see Dr Ernandez, who referred him to an endocrineOV 12/13/2022:Here for her f/u apt, she feels well, she did do the labs on 11/17/2022 OV : Here for her f/u apt, she does c/o loose stools, ate a raw salad, doing better now OV 12/12/2023: Here for her f/u apt, she feels well, she did do the labs OV 06/13/2024: Here for her f/u apt, she did do the labs on 05/22/2024 OV 10/03/2024: Here for her f/u apt, she feels well today, she is here for her MWV also, she did do the labs for Dr Garber OV 01/02/2025: Here for her f/u apt, she has had some URI sx with cough, no fevers or chills, no chest pain or SOB, had noted some diarrhea, no blood in urine or stools, states that these symptoms are much improved today Ang Florez MD [address] [facility] [facility] [address], [place], [address], [place] [facility] [employer] 01/02/2025 15:22:28 OBGyn Episode No OBEpisode recorded.
--- OUTSIDE RECORDS SUMMARY | 2025-01-09 16:17 | XMS_ITS | Referral Summary ---
Author Organization [facility] [address] [facility] Address [address] [place] [address] Care Team Providers Care Molecular Technologist Name Role Phone Nora Fabian MD Primary Care Provider [phone] Social History Tobacco Use Types Packs/Day Years Used Date Smoking Tobacco: Never Assessed Personal Safety Answer Date Recorded Getting School Help Needed Not on file 05/03 Comments Unknown Sex and Gender Information Value Date Recorded Sex Assigned at Not on file Legal Sex Female 9:46 AM CDT Gender Identity Not on file Sexual Orientation Not on file Plan of Treatment Not on file Insurance [facility] MEDICARE ADVANTAGE [facility]IC[facility] Address: [facility] [address] [place] [address] Care Teams Molecular Technologist Relationship Specialty [place] [address] [facility] [address] [place] [address] PCP - General Internal Medicine 07/09/20
--- OUTSIDE RECORDS SUMMARY | 2025-01-09 16:17 | XMS_ITS | CONTINUITY OF CARE DOCUMENT ---
Author Name caprice, cherriediego Address Unknown Organization [facility] Address [address] [facility] [address] [place] [address] Phone [phone] Care Team Providers Care Parking Cashier Name Role Phone Slava Baron MD Unavailable KOMAL LEIGH MD Unavailable [phone] KOMAL LEIGH MD Unavailable [phone] PROBLEMS Condition Status Date Provider Notes Cardiology examination active Slava Baron MD Shortness of breath active Slava Baron MD Hyperlipidemia active Slava Baron MD HTN essential active Slava Baron MD ENCOUNTERS Date Type Provider Location Encounter Diag nosis - In-person encounter Office Visit Slava Baron MD [facility] - In-person encounter Office Visit Slava Baron MD [facility] - In-person encounter Office Visit Slava Baron MD [facility] Cardiology examinationHTN essentialShortness of breathHyperlipidemia VITAL SIGNS Date Observation Value Provider Body Mass Index (Ratio) 27.12 kg/m2 Main Baorn MD blood pressure, diastolic 80 mm[Hg] [place] marksLogkrys blood pressure, systolic 154 mm[Hg] Mere Watson pulse rate 68 /min Alise Estrada blood pressure, cuff size regular Michael carlson Estrada blood pressure, diastolic 80 mm[Hg] Michael carlson Estrada blood pressure, systolic 154 mm[Hg] Todd torres Estrada oxygen saturation, oximetry 94 % Alise [place] respiratory rate E&M 12 /min Alise [place] weight E&M 163 [lb_av] Alise [place] height E&M 65 [in_i] Alise [place] Body Mass Index (Ratio) 29.78 kg/m2 Mian Baron MD blood pressure, cuff size regular [facility] blood pressure, diastolic 80 mm[Hg] Isiah [facility] blood pressure, systolic 148 mm[Hg] [facility] pulse rate 64 /min Patrick oxygen saturation, oximetry 95 % [facility] respiratory rate E&M 12 /min Patrick weight E&M 179 [lb_av] Patrick height E&M 65 [in_i] [facility] y Body Mass Index (Ratio) 28.95 kg/m2 Main Baron MD blood pressure, diastolic -1 mm[Hg] Chelsea nkLogkrys blood pressure, systolic 144 mm[Hg] Mere [facility] blood pressure, diastolic -1 mm[Hg] [place] marksLogkrys blood pressure, systolic 144 mm[Hg] Mere Felizogkrys blood pressure, diastolic 84 mm[Hg] kailee Islas blood pressure, systolic 144 mm[Hg] [facility] jayleen Islas oxygen saturation, oximetry 98 % Do Islas respiratory rate E&M 20 /min Do Islas pulse rate 69 /min Do Islas blood pressure, cuff size regular Sh kailee Islas weight E&M 174 [lb_av] Do Janel height E&M 65 [in_i] Do Janel ALLERGIES No Known Drug Allergies HISTORY OF MEDICATION USE Medication Status Instructions Dates Provider Indications Com ments Wixela Inhub 100-50 mcg/dose blister with device active Slava Baron MD albuterol sulfate 90 mcg/actuation HFA aerosol inhaler active Slava Baron MD rosuvastatin 40 mg tablet active TAKE 1 TABLET BY MOUTH EVERY DAY (STOP PRAVASTATIN) Slava Baron MD Unithroid 25 mcg tablet active Slava Baron MD amlodipine 5 mg tablet active Slava Baron MD phenytoin sodium extended 100 mg capsule active Slava Baron MD SOCIAL HISTORY Date Observation Value Provider drug use no Slava Baron MD alcohol use no Slava Baron MD smoking status Never smoker Slava Baron MD social history reviewed E&M reviewed - no changes required Slava Baron MD social history E&M S moking History: P alison has never smoked. Slava Baron MD smoking status Never smoker Slava Baron MD drug use no Slava Baron MD alcohol use no Slava Baron MD social history reviewed E&M reviewed - no changes required Slava Baron MD social history E&M S moking History: P alison has never smoked. Slava Baron MD smoking status Never smoker Do Islas INSURANCE PROVIDERS Payer name Policy type / Coverage type [employer] Indian red libertarian ID [employer] MEDICARE ADVANTAGE HMO-POS HMO [id number] ADVANCE DIRECTIVES Name Date DISCUSSED - NO DECISION MADE TREATMENT PLAN Date Name Performer [id number],C, B P today: 148/80 P rior BP: 144/-1 (06/17/2023) Slava Baron MD [id number],C,not on a stat in Slava Baron MD [id number],C,H er echo was unremarkable with no significant valvular abnormalities. I will check her PFTs and a 6 minute walk test. Slava Baron MD [id number],C,WIll evaluate with echo Slava Baron MD [id number],C, B P today: 144/84 Slava Baron MD Cardiology:The patie nt is on a statin for pimary prevention and management of cardiovascular disease. H er updated medication list for this problem includes: Rosuvastatin 40 Mg Tablet (Rosuvastatin) ..... Take 1 tablet by mouth every day (stop pravastatin) Slava Baron MD Cardiology:This visi t has been a part of the consistent, comprehensive, and ongoing management of the chronic medical condition(s) listed above for the patient. W ell controlled at home B P today: 154/80 P rior BP: 148/80 (07/29/2023) Her updated medication list for this problem includes: Amlodipine 5 Mg Tablet (Amlodipine) Slava Baron MD Cardiology:PFTs show mod severe obstructive lung disease with response to nevbulizer Her echo was unremarkable with no significant valvular abnormalities. Slava Baron MD Cardiology: B P today: 148/80 P rior BP: 144/-1 (06/17/2023) Slava Baron MD Cardiology:not on a statin Slava Baron MD Cardiology:Her echo was unremarkable with no significant valvular abnormalities. I will check her PFTs and a 6 minute walk test. Slava Baron MD Cardiology:WIll evaluate with ec ho Slava Baron MD Cardiology: B P today: 144/84 Slava Baron MD Date Name DLCO - 94368 FRC - 72544 FVC - 44590 6 minute walk test Complete Echo HISTORY OF PROCEDURES Procedure Date Procedure Name Provider Procedure Notes S tatus Complex e/m visit add on Slava Baron MD completed EKG Slava Baron MD completed FVC / MVV with bronchodilator - 16113 Slava Baron MD completed BLOOD COUNT HEMOGLOBIN Slava Baron MD completed FRC - 29934 Slava Baron MD complete d SpO2 w/o 6min walk/titration Slava Baron MD completed DLCO - 06334 Slava Baron MD complet ed 6 minute walk test Slava Baron MD c ompleted EKG Slava Baron MD completed
--- OUTSIDE RECORDS SUMMARY | 2025-01-09 16:17 | XMS_ITS | Continuity of Care Document ---
Author Organization [facility] Address [address] [place] [address] Phone Care Team Providers Care Dewaxer Name Role Phone Nora Fabian MD Unavailable Unavailable Allergies, Adverse Reactions, Alerts Substance Reaction Status Criticality ATORVASTATIN CALCIUM GI Active No Info rmation Medications Medication Instructions Dosage Effective Dates (start - stop) Status Comments amlodipine 5 mg tablet take 1 tablet by oral route every day 5 MG - Active hydrochlorothiazide 12.5 mg tablet take 1 tablet by oral route every day 12.5 MG - Active trazodone 50 mg tablet take 1 tablet by oral route every day after meals 50 MG - Active PHENYTOIN SOD EXT 100 MG CAP TAKE THREE CAPSULES BY MOUTH EVERY MORNING - Active Dulera 100 mcg-5 mcg/actuation HFA aerosol inhaler inhale 2 puff by inhalation route 2 times every day in the morning and evening 2.00 puff - Active called into pharm by Antonia solis on 11/11/15 m.m lovastatin 40 mg tablet TAKE half TABLET BY MOUTH ONCE DAILY WITH EVENING MEAL - Active meclizine 25 mg tablet take 1 tablet by oral route 3 times every day as needed 25 MG - Active Vitamin D3 2,000 unit tablet qd - Active OCUVITE ADULT 50 PLUS (unknown strength) take one tablet by mouth daily. Not Available - Active Procedures Procedure Date FALL RISK ASSESSMENT DOC'D PRES/ABSN URINE INCON ASSESS Pt inelig neg scrn depres OFFICE REFLX-ANS-ZITVETTD BODY MASS INDEX DOCD SYST BP GE 130 - 139MM HG DIAST BP 80-89 MM HG CBC, INC PLATELETS AND DIFFERENTIAL COMPREHEN METABOLIC PANEL CMP 0 LIPID PANEL PARATHYROID HORMONE (PTH) VITAMIN D, 25-HYDROXY ROUTINE VENIPUNCTURE OFFICE [id number] BODY MASS INDEX DOCD SYST BP >= 140 MM HG6 IT DIAST BP 80-89 MM HG Admin influenza virus vac FLU VACC 4 GLYNN 0.5mL DOSAGE OFFICE [id number] BODY MASS INDEX DOCD SYST BP GE 130 - 139MM HG DIAST BP < 80 MM HG Advance Directives Directive Yes / No Effective Date File Name Life Support Not Answered N/A N/A Intubation Not Answered N/A N/A Antibiotics Not Answered N/A N/A IV Fluid Support Not Answered N/A N/A Tube Feed Not Answered N/A N/A Other Directive N/A N/A WARNING:The information contained in this section is historical and is provided for information only and does not constitute a legal document or any assurance that the information is still accurate. Please verify the information with the yang of the legal document before using it for clinical purposes. Encounters Encounter Description Practice Location Reason(s) For Visit Diagnoses Date Provider Providers Copied on Encounter [facility], [address], [place], [place], [address] , [place] tel: [phone] [facility] No Information 2 Rui Melendez. [address], [place], [place], [address] , [place]. tel: [phone] [facility], [address], [place], [place], [address] , [place] tel: [phone] [facility] No Information 0 Rui Melendez. [address], [facility] [address], [place], [place], [address] , . tel: [phone] [facility], [address], [place], [place], [address] , tel: [phone] [facility] No Information 0 Rui Melendez. [facility] [address], [address], [place], [place], [address] , . tel: [phone] [facility], [address], [place], [place], [address] , tel: [phone] [facility] No Information 0 Rui Melendez. [facility] [address], [facility] [address], [place], [place], [address] , . tel: [phone] OFFICE [id number] [facility], [address], [place], [place], [address] , tel: [phone] [facility] 6 mo fu (chief complaint) Body mass index (BMI) 30.0-30.9, adultEncntr screen mammogram for malignant neoplasm of breastGrand mal seizure disorderPure hypercholesterolemi a, unspecifiedEssentia l hypertensionVitamin D deficiency, unspecifiedMild intermittent asthma without complication 0 Rui Melendez. [address], [facility] [address], [place], [place], [address] , . tel: [phone] Referring Provider: Nora Fabian [address] [facility] [address], [place], [address] . tel:[phone] [facility], [address], [place], [place], [address] , tel: [phone] [facility] No Information 0 Rui Melendez. [address] [facility] [address], [place], [place], [address] , . tel: [phone] OFFICE [id number]-VQ [facility], [address], [place], [place], [address] , tel: [phone] [facility] Routine cc- (chief complaint) Body mass index (BMI) 31.0-31.9, adultHyperparathyro idism , secondary, non-renalSenile purpuraVitamin D deficiency, unspecifiedGrand mal seizure disorderEssential hypertensionBenign paroxysmal positional vertigo of left earPure hypercholesterolemi a, unspecifiedMild intermittent asthma without complication 0 Rui Melendez. [address], [place], [place], [address] , . tel: [phone] Referring Provider: Raj[address], [place], [address] . tel:[phone] [facility], [address], [place], [place], [address] , tel: [phone] [facility] Severe dizzinessGrand mal seizure disorder 0 Rui Melendez. [address], [place], [place], [address] , . tel: [phone] [facility], [address], [place], [place], [address] , tel: [phone] [facility] No Information 9 Rui Melendez. [address], [place], [place], [address] , . tel: [phone] Referring Provider: Raj[address], [place], [address] . tel:[phone] [facility], [address], [place], [place], [address] , tel: [phone] [facility] No Information 9 Rui Melendez. [address], [place], [place], [address] , . tel: [phone] OFFICE [id number] [facility], [address], [place], [place], [address] , tel: [phone] [facility] 1 Month fup re BP (chief complaint) Essential hypertension 9 Rui Melendez. [address], [place], [place], [address] , . tel: [phone] Referring Provider: Rajat [address], [place], [address] . tel:[phone] [facility], [address], [place], [place], [address] , tel: [phone] [facility] Fup re dizziness (chief complaint) Benign paroxysmal positional vertigo of left earEssential hypertension 9 Rui Melendez. [address], [place], [place], [address] , . tel: [phone] Referring Provider: [address], [place], [address] . tel:[phone] [facility], [address], [place], [place], [address] , tel: [phone] [facility] Body mass index (BMI) 31.0-31.9, adultRoutine physical examinationGrand mal seizure disorderMild intermittent asthma without complicationEssenti al hypertensionHyperpa rathyroidism , secondary, non-renalSenile purpuraPure hypercholesterolemi a, unspecified 9 Rui Melendez. [address], [place], [place], [address] , . tel: [phone] Referring Provider: Rajat [address], [place], [address] . tel:[phone] [facility], [address], [place], [place], [address] , [place] tel: [phone] [facility] No Information 8 Rui Melendez. [address], [place], [place], [address] , [place]. tel: [phone] Referring Provider: Raj[address], [place], [address] . tel:[phone] [facility], [address], [place], [place], [address] , tel: [phone] [facility] Acute left-sided back pain with sciatica 0 8 Rui Melendez. [address], [place], [place], [address] , . tel: [phone] [facility], [address], [place], [place], [address] , tel: [phone] [facility] Acute left-sided back pain with sciatica 0 8 Rui Melendez. [address], [place], [place], [address] , . tel: [phone] Referring Provider: Raj[address], [place], [address] . tel:[phone] [facility], [address], [place], [place], [address] , tel: [phone] [facility] Essential hypertension 2 8 Rui Melendez. [address], [place], [place], [address] , . tel: [phone] Referring Provider: Rajat [address], [place], [address] . tel:[phone] [facility], [address], [place], [place], [address] , tel: [phone] [facility] Vitamin D deficiency, unspecified 3- 8 Rui Melendez. [address], [place], [place], [address] , . tel: [phone] Referring Provider: Rajat [address], [place], [address] . tel:[phone] [facility], [address], [place], [place], [address] , tel: [phone] [facility] Essential hypertensionHyperpa rathyroidism , secondary, non-renalVitamin D deficiency, unspecifiedPure hypercholesterolemi a, unspecifiedScreenin g for diabetes mellitusSenile purpuraGrand mal seizure disorderMild intermittent asthma without complication Dec-0 8-201 8 Rui Melendez. [address], [place], [place], [address] , . tel: [phone] Referring Provider: Raj[address], [place], [address] . tel:[phone] [facility], [address], [place], [place], [address] , tel: [phone] [facility] No Information Rui Melendez. [address], [place], [place], [address] , . tel: [phone] Referring Provider: Raj[address], [place], [address] . tel:[phone] [facility], [address], [place], [place], [address] , tel: [phone] [facility] Essential hypertensionSenile purpura Rui Melendez. [address], [place], [place], [address] , . tel: [phone] Referring Provider: Rajat [address], [place], [address] . tel:[phone] [facility], [address], [place], [place], [address] , tel: [phone] [facility] Pure hypercholesterolemi a, unspecifiedEssentia l hypertensionGrand mal seizure disorderEncounter for long-term (current) use of other medicationsDizzines sVitamin D deficiency, unspecifiedHyperpar athyroidism , secondary, non-renal Rui Melendez. [address], [place], [place], [address] , . tel: [phone] Referring Provider: Rajat [address], [place], [address] . tel:[phone] [facility], [address], [place], [place], [address] , tel: [phone] [facility] Pure hypercholesterolemi aEncounter for long-term (current) use of other medications 7 Rui Melendez. [address], [address], [place], [place], [address] , . tel: [phone] Referring Provider: Raj[address], [place], [address] . tel:[phone] [facility], [address], [place], [place], [address] , tel: [phone] [facility] Pure hypercholesterolemi a, unspecifiedMild intermittent asthma without complicationOther fci (current) drug therapyScreening for diabetes mellitusGrand mal seizure disorder 6 Rui Melendez. [address], [address], [place], [place], [address] , [place]. tel: [phone] Referring Provider: Raj[address], [place], [address] . tel:[phone] [facility], [address], [place], [place], [address] , [place] tel: [phone] [facility] Nonintractable epilepsy without status epilepticus, unspecified epilepsy typeMild intermittent asthma without complicationPure hypercholesterolemi aEncounter for long-term (current) use of other medicationsEncounte r for immunization Jan- 6 Saman Dickinson. [address], [address], [place], [place], [address] . tel: [phone] Referring Provider: [address], [place], [address] . tel:[phone] [facility], [address], [place], [place], [address] , [place] tel:[phone] [facility] External hemorrhoid 5 Saman Dickinson[address], [address], [place], [place], [address] . tel: [phone] Referring Provider: [address], [place], [address] . tel:[phone] [facility], [address], [place], [place], [address] , [place] tel: [phone] [facility] Cellulitis of arm, left Manfred- 5 Saman Dickinson. [address], [address], [place], [place], [address] . tel: [phone] Referring Provider: Alok Davison, [address], [place], [address] . tel:[phone] [facility], [address], [place], [place], [address] , tel: [phone] [facility] Pure hypercholesterolemi aGen cnv epil w/o intr epExtrinsic asthma, unspecified Dec-0 5 Saman Dickinson. [address], [address], [place], [place], [address] . tel: [phone] Referring Provider: Alok Davison, [address], [place], [address] . tel:[phone] [facility] [address], [place], [place], [address] , tel: [phone] [facility] Abnormal mammogram 5 Saman Dickinson[address], [address], [place], [place], [address] . tel: [phone] [facility] [address], [place], [place], [address] , tel: [phone] [facility] Otitis externa of right earImpacted cerumen of both ears 4 Saman Dickinson[address], [address], [place], [place], [address] . tel: [phone] Referring Provider: [address], [place], [address] . tel:[phone] [facility] [address], [place], [place], [address] , tel: [phone] [facility] No Information 4 Saman Dickinson. [address], [address], [place], [place], [address] . tel: [phone] [facility], [address], [place], [place], [address] , [place] tel: [phone] [facility] Extrinsic asthma, unspecified 4 Saman Dickinson. [address], [address], [place], [place], [address] . tel: [phone] Referring Provider: [address], [place], [address] . tel:[phone] [facility], [address], [place], [place], [address] , tel: [phone] [facility] PURE HYPERCHOLESTEROLEMG eneralized convulsive epilepsy, without mention of intractable epilepsyEXTRINSIC ASTHMA, UNSPECIFIEDLong-ter m (current) use of other medicationsPolyuria 4 Sam[address], [address], [place], [place], [address] . tel: [phone] Referring Provider: [address], [place], [address] . tel:[phone] [facility], [address], [place], [place], [address] , [place] tel: [phone] [facility] No Information 3 Saman Dickinson[address], [address], [place], [place], [address] . tel: [phone] [facility], [address], [place], [place], [address] , [place] tel: [phone] [facility] PURE HYPERCHOLESTEROLEMA bnormal CBC 3 Saman Dickinson[address], [address], [place], [place], [address] . tel: [phone] Referring Provider: [address], [place], [address] . tel:[phone] [facility], [address], [place], [place], [address] , [place] tel: [phone] [facility] Routine general medical examination at a health care facilityGeneralized convulsive epilepsy, without mention of intractable epilepsyPure hypercholesterolemi aEXTRINSIC ASTHMA, UNSPECIFIEDLong-ter m (current) use of other medications 3 Saman [address], [address], [place], [place], [address] . tel: [phone] Referring Provider: [address], [place], [address] . tel:[phone] [facility], [address], [place], [place], [address] , tel: [phone] [facility] Benign positional vertigoNausea [address] Saman [address], [address], [place], [place], [address] . tel: [phone] Referring Provider: [address], [place], [address] . tel:[phone] [facility], [address], [place], [place], [address] , tel: [phone] [facility] Long-term (current) use of other medications 1 Saman Dickinson[address], [address], [place], [place], [address] . tel: [phone] Referring Provider: Rajat [address] Dr [address] [facility], [place], [address] . tel:[phone] [facility], [address], [place], [place], [address] , tel: [phone] [facility] Long-term (current) use of other medicationsScreenin g for diabetes mellitus 1 Saman Dickinson[address], [address], [place], [place], [address] . tel: [phone] Referring Provider: [address], [place], [address] . tel:[phone] [facility], [address], [place], [place], [address] , tel: [phone] [facility] VACCIN FOR INFLUENZA 0 Saman Dickinson. [address], [address], [place], [place], [address] . tel: [phone] [facility], [address], [place], [place], [address] , [place] tel: [phone] [facility] LONG-TERM USE MEDS NECGEN CNV EPIL W/O INTR EPPURE HYPERCHOLESTEROLEME XTRINSIC ASTHMA NOS 0 Saman Dickinson. [address], [address], [place], [place], [address] . tel: [phone] [facility], [address], [place], [place], [address] , [place] tel: [phone] [facility] URINARY FREQUENCYPLANTAR WART 2201 0 Saman Dickinson. [address], [address], [place], [place], [address] . tel: [phone] [facility], [address], [place], [place], [address] , [place] tel: [phone] [facility] PLANTAR FIBROMATOSIS 0-200 9 Saman Dickinson. [address], [address], [place], [place], [address] . tel: [phone] [facility], [address], [place], [place], [address] , [place] tel: [phone] [facility] SCREEN MAL NEOP-RECTUM 9-200 9 Saman Dickinson. [address], [address], [place], [place], [address] . tel: [phone] [facility], [address], [place], [place], [address] , [place] tel: [phone] [facility] SCREEN-DIABETES MELLITUS 2-200 8 Saman Dickinson. [address], [address], [place], [place], [address] . tel: [phone] [facility], [address], [place], [place], [address] , tel: [phone] [facility] RESPIRATORY ABNORM NEC 7-200 8 Saman Dickinson. [address], [address], [place], [place], [address] . tel:[phone] [facility], [address], [place], [place], [address] , [place] tel: [phone] [facility] HYPERPOTASSEMIA 7200 7 Muchnick Alok. [address], [address], [place], [place], [address] . tel: [phone] [facility], [address], [place], [place], [address] , [place] tel: [phone] [facility] No Information 5200 7 Saman Dickinson. [address], [address], [place], [place], [address] . tel: [phone] [facility], [address], [place], [place], [address] , [place] tel: [phone] [facility] FAM HX-DIABETES MELLITUS 5 Saman Dickinson. [address], [address], [place], [place], [address] . tel: [phone] [facility], [address], [place], [place], [address] , [place] tel:[phone] [employer] FOREIGN BODY FOOT & TOE 6 4 Maldonado Warren. [address], [address], [place], [place], [address] . tel: [phone] [facility], [address], [place], [place], [address] , [place] tel: [phone] [employer] PAIN IN LIMB 200 3 Saman Dickinson. [address], [address], [place], [place], [address] . tel: [phone] [facility], [address], [place], [place], [address] , [place] tel:[phone] [employer] SYMPT FEM CLIMACT STATE 1200 2 Saman Dickinson. [address], [address], [place], [place], [address] . tel: [phone] [facility], [address], [place], [place], [address] , tel: [phone] [facility] CELLULITIS NOS Sep- 1-200 1 Saman Dickinson. [address], [address], [place], [place], [address] . tel: [phone] [facility], [address], [place], [place], [address] , tel: [phone] [facility] BURN NOSVACCINATION FOR TD-DT Sep- 1-200 0 Saman Dickinson. [facility] [address], [address], [place], [place], [address] . tel: [phone] [facility], [address], [place], [place], [address] , tel: [phone] [facility] ALLERGY, UNSPECIFIED 5-200 0 Saman Dickinson. [facility] [address], [address], [place], [place], [address] . tel: [phone] [facility], [address], [place], [place], [address] , tel: [phone] [facility] GANGLION NOS February- 0-200 0 Saman Dickinson. [address] [place] [address] , [address], [place], [place], [address] . tel: [phone] Family History Family Member Type Diagnosis Age At Onset Family h/o Problem (finding) DIABETES MELLITUS Immunizations Vaccine Date Status Comments Fluzone Quad, split virus, 0.5mL dosage administered Source: New Immuniza tion Record Tdap administered Source: New Imm unization Record Fluzone [facility], split virus, 0.5mL dosage administered Source: New Immuniza tion Record Pneumococcal polysaccharide PPV23 administered Source: New Immuniza tion Record Fluzone Quad 8040-6532, spli t virus, 0.5mL dosage administered Source: New Immuniza tion Record Pneumococcal conjugate PCV 13 administere d Source: New Immunization Record influenza, injectable, quadrivalent, (3 years or older) administered Source: New Immuniza tion Record Tdap administered Source: New Imm unization Record Influenza, seasonal, injecta ble (3 yrs or older) administered Note: roxanne [id number] ; Source: Source Unspecified 58882 - Influenza administered Source: Kalie lazaro Unspecified 37352 - TD administered Source: Source Unspecified Payers Payer name Insurance type Covered democrat ID Authoriza tion(s) [employer] MB [id number] [employer] MB [id number] [employer] MB [id number] [employer] MB [id number] [employer] MB [id number] [employer] MB [id number] [employer] MB [id number] [employer] MB [id number] [employer] MB [id number] [employer] MB [id number] Social History Type Description Quantity Date Captured Comments Alcohol Use Details Unknown Caffeine Use Details Unknown Tobacco Use Status No Information Smoking Status No Information Sex Female Sexual Orientation Choose not to disclose Gender Identity Female Chief Complaint And Reason For Visit No Information Reason For Referral Reason For Referral No Information Plan Of Treatment Date Type Action Status Goal Dietary manageme nt education, guidance, and counseling completed Goal Dietary manageme nt education, guidance, and counseling completed Referral Referred To: [id number] [place], [place], [id number] Ordered: SCREENING MAMMOGRAM (CAD) Bilateral breast ordered Referral Ordered: MRI of brain without contrast ordered Patient Education Sciatica: Exercises com pleted Patient Education Sciatica: Care Instruct ions completed Patient Education Low Back Pain: Exercise s completed Future Order: Lab Order Phenytoi n (Dilantin) Level ([id number]), Collected on: , Sent on: Sent History Of Present Illness Encounter Date Complaint History Of Prese nt Illness 6 mo fu The patient is a 69 years old female with past medical history significant for hyperlipidemia, seizure disorder, asthma who presenting today for follow-up. On today's visit, pt is tearful since her past away this yr unexpected. She got a new great grand daughter. Pt is living by herself and thinking about selling house.Grand mal seizure disorderpatient had grand mal seizure when she was younger about 40 years ago. She thought may have something to do with she does not have enough sleep. Patient is currently on Dilantin 300 mg daily. Has been stable. Drug level has been monitored yearlyAsthma: Patient's symptoms improved for the Dulera, may be mild asthma is also contributing. Currently on Dulera and the patient seems coping wellPure hypercholesterolemia: Has not taking lovastatin 40mg, She has tried zocor and lipitor but she think all the medication make her sickEssential HTN: On amlodipine to 10mg, BP in goal and tolerating medication.Vit D deficiency with PTH elevation: Has been on supplement and number is improving Patient does not smoke, does not drink alcohol. She had a remote history of hysterectomy with oophorectomy.Family history is significant for diabetes ,They have been helping her granddaughter to pay for the college expense. Routine cc- The patient is a 69 years old female with past medical history significant for hyperlipidemia, seizure disorder, asthma who presenting today for follow-up. On today's visit, pt seems doing better. Her life stress is better and she got a new great grand daughter. Her granddaughter is again. They live at her house and she is helpingGrand mal seizure disorderpatient had grand mal seizure when she was younger about 40 years ago. She thought may have something to do with she does not have enough sleep. Patient is currently on Dilantin 300 mg daily. Has been stable. Drug level has been monitored yearlyAsthma: Patient's symptoms improved for the Dulera, may be mild asthma is also contributing. Currently on Dulera and the patient seems coping wellPure hypercholesterolemia: Has not taking lovastatin 40mg, She has tried zocor and lipitor but she think all the medication make her sickEssential HTN: On amlodipine to 10mg, BP in goal and tolerating medication.Vit D deficiency with PTH elevation: Has been on supplement and number is improving Patient does not smoke, does not drink alcohol. She had a remote history of hysterectomy with oophorectomy.Family history is significant for diabetes ,They have been helping her granddaughter to pay for the college expense. 1 Month fup re BP Pt come in tod ay for HTN f/u. She started taking medication again. Doing wellHTN: OBP is much better today. Home amlodipine 10mg daily. Tolerating medication well.On today's visit. pt is feeling better. She is sad that her son past away. She is grieving...She does help taking care of her grandson who is 7 months Fup re dizziness Pt come in toda y for BPPV f/u. She had the similar episode one yr ago and this episode started about three/ four weeks ago. To the point, she can not get up from bed due to nausea and dizziness. She respond to the treatment of Meclizine and valium, Zofran. HTN: Off medication for one month due to the dizziness. will start to monitor at homeOn today's visit. pt is feeling better. She is sad that her son past away one week ago. She is grieving...She does help taking care of her grandson who is 3 yrs old Functional Status Date Functional Assessmen t No Information Instructions Date Instruction Additional Infor jatinder Stable, doing well w ith Duleradoing well Related to Mild intermittent asthma without complication c/w supplementwill check level R elated to Vitamin D deficiency, unspecified willing to take lova statin at lower levelWill check lipid level Related to Pure hypercholesterolemia, unspecified BP is good at homewi ll c/w Amlodipine RTC in 6 months for f/u Related to Essential hypertension C/w Dilantin, no fur ther seizurewill check level 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 Dietary management e ducation, guidance, and counseling Related to Body mass index (BMI) 30.0-30.9, adult Disease process WIll continue with [place] eclizine current dose as neededhas not done MRIwill f/u with ENT if her symptoms worsens Related to Benign paroxysmal positional vertigo of left ear c/w supplementwill check level R elated to Vitamin D deficiency, unspecified willing to take lova statin at lower levelWill check lipid level Related to Pure hypercholesterolemia, unspecified ON ASANoticed on exam Related to Senile purpura C/w Dilantin, no fur ther seizurewill check level 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 BP is good at homewi ll c/w Amlodipine RTC in 6 months for f/u Related to Essential hypertension Elevated PTH due to vitamin D deficiencyNormal calcium, will continue monitor Related to Hyperparathyroidism , secondary, non-renal Dietary management e ducation, guidance, and counseling Related to Body mass index (BMI) 31.0-31.9, adult Disease process BP is good todayWill continue to take amlodipine 10mg dailyRTC in 6 months Related to Essential hypertension Disease process Off medication due t o feeling dizzinessWill observe home readings for one monthsWill decide further medication based on home readings Related to Essential hypertension Will c/w meclizine a nd Valium for now as neededSimeon maneuver instruction gave to pt. RTC in one months for f/u Related to Benign paroxysmal positional vertigo of left ear Disease process Assessments Type Assessment Date No Information Patient Care Teams Name Effective Dates (start - stop) Status Members No Information
[2025-01-09 17:13] LABS: Alanine Aminotransferase 23 U/L (6-35); Albumin Level 4.5 g/dL (3.5-5.1); Alkaline Phosphatase 118 U/L (38-126); Anion Gap 9 mmol/L (4-12); Aspartate Amino Transferase 45 U/L (14-36); Bilirubin,Total 0.2 mg/dL (0.2-1.3); Blood Urea Nitrogen 17 mg/dL (7-17); Calcium 9.3 mg/dL (8.4-10.2); Carbon Dioxide 30 mmol/L (22-30); Chloride 101 mmol/L (98-107); Estimated Glomerular Filt Rate > 60; Glucose 148 mg/dL (65-110); Potassium 4.2 mmol/L (3.4-5.0); Sodium 140 mmol/L (137-145)
[2025-01-09 18:19] LABS: Folic Acid 7.3 ng/mL (2.76->20)
== END 2025-01-09 14:56 | disposition home or self-care (01) ==
LOC: ANHLAB 14:56
PROVIDERS: PCP Internal Medicine; Visit Provider Internal Medicine Hematology & Oncology
DX: D64.9 Anemia, unspecified (principal)
CPT/HCPCS: 36415; 80053; 82607; 82746; 85025

== ENCOUNTER 2025-03-08 14:47 | Outpatient (CLI) | payer MEDICARE, SELFPAY ==
--- NOTE | ~2025-03-08 | MM_ITS ---
EXAMINATION: MM screening [facility] BI w oli HISTORY: Screening TECHNIQUE: Craniocaudal and mediolateral oblique 3-D tomosynthesis images were obtained and synthetic 2-D images were generated. CAD analysis was submitted and interpreted. COMPARISON: No prior mammogram is available for comparison at this institution. BREAST PARENCHYMAL COMPOSITION: Not dense: There are scattered areas of fibroglandular density. FINDINGS: There is no evidence of suspicious mass, calcification, or architectural distortion to sugg est malignancy in either breast. There has been no suspicious interval change. IMPRESSION: 1. No mammographic evidence of malignancy. 2. Recommend routine screening mammography in one year. BI-RADS Category 1: Negative Reviewed, dictated and finalized at location B.
--- OUTSIDE RECORDS SUMMARY | 2025-03-08 14:51 | XMS_ITS | Clinical Summary ---
Author Organization [facility] Address [address] [address] [place] [id number] Phone Care Team Providers Care Communications Tower Technician Name Role Phone Ang Florez MD Primary [...] Take 40 mg by mouth daily. Active Airsupra 90-80 mcg/actuation HFA Aerosol Inhaler PLEASE SEE ATTACHED FOR DETAILED DIRECTIONS Active calcium-vitamin D3-vitamin K (VIACTIV) 500 mg-100 unit -40 mcg Tablet, Chewable Take 2 Tablets by mouth daily. Active Active Problems No known active problems Encounters Date Type Department Care Team Description 03/07/2025 External Device Data [facility] Provider, Abstract 03/06/2025 External Device Data [facility] Provider, Abstract 03/05/2025 External Device Data [facility] Provider, Abstract 01/11/2025 11:30 AM CDT Office Visit [facility] - [place] [address] [place] [address] Dereck Garber MD Chronic anemia (Primary Dx) 01/10/2025 Orders Only [facility] [place] [address] [place] [id number] Dereck Garber MD 01/02/2025 External Device Data [facility]STRACTION Provider, [...] Sign Reading Time Taken Comments Blood Pressure 137/68 01/11/2025 11:35 AM CDT Pulse 61 01/11/2025 11:35 AM CDT Temperature 36.1 C (96.9 F) 01/11/2025 11:35 AM CDT Respiratory Rate 15 01/11/2025 11:35 AM CDT Oxygen Saturation 95% 01/11/2025 11:35 AM CDT Inhaled Oxygen Concentration - - Weight 72.8 kg (160 lb 6.4 oz) 01/11/2025 11:35 AM CDT Height 160 cm (5' 3 ) 08/07/2024 1:42 PM CDT Body Mass Index 28.41 08/07/2024 1:42 PM CDT Plan of Treatment Upcoming Encounters Date Type Department Care Team (Late st Contact Info) Description 07/16/2025 1:00 PM CDT Office Visit [facility] - [place] [address] [place] [address] Dereck Garber MD [address] [facility] [address] [place] [address] Health Maintenance Due Date Last Done Comments DTAP/TDAP/TD VACCINES (1 - Tdap) 1967 RSV VACCINE (60+ or ) (1 - 1-dose 75+ series) 2023 INFLUENZA VACCINE (#1) 2024 , 07/22/2021, 08/18/2020 OSTEOPOROSIS SCREENING 06/16/2028 06/16/2023 PNEUMOCOCCAL VACCINE 50+ YEARS Completed 12/15/2017 , 09/16/2016 ZOSTER VACCINE Completed 08/09/2023, 06/13/2023 Procedures Procedure Name Priority Date/Time Associated Diagnosis Comments CBC WITH DIFFERENTIAL Routine 01/09/2025 2:09 PM CDT from Last 3 Months Results * CBC WITH DIFFERENTIAL (01/09/2025 2:09 PM CDT) Blood us Dereck Garber MD HEMATOLOGY ORDERABLES Final Res ult from Last 3 Months Insurance [facility] Address: [place] [address] [facility] [id number] Care Teams Communications Tower Technician Relationship Specialty Start Date End Date Ang Florez MD PCP - General Internal Medicine 08/07/24
--- OUTSIDE RECORDS SUMMARY | 2025-03-08 14:51 | XMS_ITS | Data Portability ---
Author Organization [place] - [facility], Main Office Address [address] [place] [address] Care Team Providers Care Poly Packer And Heat Sealer Name Role Phone SHAWNEEEMIR JOSEISMAEL Primary Care Provider KALYAN BARON Latent Fingerprint Examiner SUN RUSH Inside Channel Account Manager [phone] [facility] Press Catcher JENNA GARBER Hematology/Oncology [phone] Assessment Encounter Date Assessment Date Assessment LastModified [...] available Lab lipid panel, serum 2024 025 RANDY Not available 02/08/2025 11:41:58 CMP, serum or plasma 2024 025 RANDY Not available 01/10/2025 08:09:58 CBC w/ auto diff 2024 025 RANDY Not available 01/09/2025 19:19:06 TSH + free T4, serum 2024 025 RANDY Not available 02/08/2025 11:41:53 vitamin D, 25-hydrox y, total, serum 2024 025 RANDY Not available 02/08/2025 11:42:00 measles igg Ab, titer, serum 2024 025 [employer] [facility], [address], [place], [address], 01/09/2025 09:22:25 rubella igg Ab, titer, serum 2024 025 [employer] [facility], [address], [place], [address], 01/09/2025 09:22:34 mumps igg Ab, titer, serum 2024 025 [email or web address] [employer] [facility], [address], [place], [address], 01/09/2025 09:22:46 vitamin B12 + folate, serum or blood 2024 025 Not available 01/02/2025 16:47:38 lipid panel, serum 2023 024 [facility] [employer] [facility], [address], [place], [address], 10/03/2024 15:20:48 CMP, serum or plasma 2023 024 [employer] [facility], [address], [place], [address], 02/08/2025 11:41:56 CBC w/ auto diff 2023 024 [employer] [facility], [address], [place], [address], 02/08/2025 11:41:55 TSH + free T4, serum 2023 024 [employer] [facility], [address], [place], [address], 10/03/2024 15:20:49 vitamin D, 25-hydrox y, total, serum 2023 024 [employer] [facility], [address], [place], [address], 10/03/2024 15:20:48 vitamin B12 + folate, serum or blood 2023 024 [employer] [facility], [address], [place], [address], 10/03/2024 15:20:48 lipid panel, serum 2023 024 Not available 12/11/2024 09:13:39 CMP, serum or plasma 2023 024 [email or web address] Not available 12/11/2024 09:13:39 CBC w/ auto diff 2023 024 RANDY Not available 08/07/2024 16:40:33 TSH + free T4, serum 2023 024 [email or web address] Not available 12/11/2024 09:13:40 vitamin D, 25-hydrox y, total, serum 2023 024 [email or web address] Not available 12/11/2024 09:13:39 vitamin B12 + folate, serum or blood 2023 024 [email or web address] Not available 12/11/2024 09:13:40 lipid panel, serum 2023 024 RANDY Not available 05/22/2024 18:37:16 CMP, serum or plasma 2023 024 RANDY Not available 05/22/2024 18:37:24 CBC w/ auto diff 2023 024 RANDY Not available 05/22/2024 18:40:10 TSH + free T4, serum 2023 024 [email or web address] Not available 06/20/2024 09:19:08 vitamin D, 25-hydrox y, total, serum 2023 024 Not available 06/20/2024 09:19:08 vitamin B12 + folate, serum or blood 2023 024 [email or web address] Not available 06/20/2024 09:19:08 Referral ophthalmo logist referral - Please call patient to schedule an appointme nt. Thank you. 2024 025 ATHENAFAX Katarina, [address], [place], [address], 01/02/2025 19:00:56 cardiolog ist referral - Please call patient to schedule an appointme nt. Thank you. 2024 025 [place], [address] [address], [address], [place], [address], 01/02/2025 19:10:35 ophthalmo logist referral 2023 024 cornel [email or web address] [facility], [address] , [place], [address], 10/23/2024 09:15:55 cardiolog ist referral 2023 024 [email or web address] [place], [address] [address], [address], [place], [address], 10/04/2024 13:56:29 hematolog ist referral 2023 024 [email or web address] Jenna Garber MD, [address], [place], [address], 10/04/2024 13:57:02 ophthalmo logist referral 2023 024 [email or web address] [employer], [address], [place], [address], 12/11/2024 08:10:26 cardiolog ist referral 2023 024 [email or web address] [place], [address] [address], [address], [place], [address], 12/11/2024 08:10:27 hematolog ist referral 2023 024 [email or web address] 2 Jenna Garber MD, [address], [place], [address], 01/07/2025 08:21:36 ophthalmo logist referral 2023 024 [email or web address] [employer], [address], [place], [address], 07/09/2024 09:08:24 cardiolog ist referral 2023 024 [place], [address], [address], [place], [address], 07/06/2024 13:06:40 Procedures oral maneuver (PROC) - ORAL MANEUVER + EVANGELIST AGUILAR PIKE TESTING. 2023 024 [facility], [address], [place], [address], 05/22/2024 14:24:18 Surgeries None recorded. Imaging MAMMO, screening , digital, bilateral [address], [address], [place], [address], 01/03/2025 08:37:54 MAMMO, screening , digital, bilateral - Please call patient to schedule. [address] [facility], [address], [address], [place], [address], 01/01/2025 13:02:54 DEXA, axial skeleton [address], [address] [place] [address] , [place], [address], 10/03/2024 17:59:55 DEXA, axial skeleton 2023 024 [facility], [address] [place] [address] , [place], [address], 07/27/2024 14:38:15 audiogram + tympanogr am 2023 024 [facility], [address], [address], [place], [address], 06/04/2024 16:07:57 DEXA, axial skeleton 2023 024 [email or web address] [facility], [address], [place], [address], 06/25/2024 10:03:54 Medication Orders cholecalc iferol (vitamin D3) 1,250 mcg (50,000 unit) capsule 2023 024 [email or web address] [id number], [address], 01/02/2025 14:49:50 Advair Diskus 100 mcg-50 mcg/dose powder for inhalatio n 2023 024 [email or web address] [facility] [address], [address], 10/03/2024 14:03:34 albuterol sulfate HFA 90 mcg/actua tion aerosol inhaler 2023 024 [facility] [address], [address], 01/02/2025 14:49:28 Unithroid 25 mcg tablet 2023 024 [email or web address] [address], [address], 01/02/2025 14:50:38 Dulera 100 mcg-5 mcg/actua tion HFA aerosol inhaler 2023 024 [email or web address] [facility] In [facility], [facility] [place], [address], 10/03/2024 14:03:08 Patient TargetsNo targets recorded. Patient Instructions Encounter Date Encounter Id Patient Instructions Last Modified By Organization Details Last Modified Time 05/17/2024 [id number] evangelist-hallpike irma t* - ORAL MANEUVER + EVANGELIST AGUILAR PIKE TESTING. [email or web address] Not available 05/22/2024 14:24:28 10/03/2024 [id number] dementia rating scale-2* Not available 10/31/2024 12:52:21 alcohol misuse* Not available 10/31/2024 12:52:27 depression screening* Not available 10/31/2024 12:52:35 Timed Up and Go test (TUG)* Not available 10/31/2024 12:52:42 multi-dimensiona l health assessment questionnaire* Not available 10/31/2024 12:52:14 Personalized a lt Plan and Screening Recommendations Advance Directives [...] I have no recommendations Depression Screening: Negative [email or web address] Not available 10/04/2024 13:55:40 Reason for Referral Press Catcher Referral for Visual impairment Referring Physician: Ron Allen Medicine, Encounter Date: 12/12/2023 Latent Fingerprint Examiner Referral for Es sential hypertension Referring Physician: Ron Allen, Encounter Date: 12/12/2023 Press Catcher Referral for Visual impairment Referring Physician: Ron Allen Medicine, Encounter Date: 06/13/2024 Latent Fingerprint Examiner Referral for Es sential hypertension Referring Physician: Rno Allen Medicine, Encounter Date: 06/13/2024 Referring Physician: Ron Allen Medicine, Encounter Date: 06/13/2024 Press Catcher Referral for Visual impairment Referring Physician: Ron Allen Medicine, Encounter Date: 10/03/2024 Latent Fingerprint Examiner Referral for Es sential hypertension Referring Physician: Ron Allen Medicine, Encounter Date: 10/03/2024 Referring Physician: Ron Allen, Encounter Date: 10/03/2024 Press Catcher Referral for Visual impairment Please call patient to schedule an appointment. Thank you. Referring Physician: Ron Allen Medicine, Encounter Date: 01/02/2025 Latent Fingerprint Examiner Referral for Es sential hypertension Please call patient to schedule an appointment. Thank you. Referring Physician: Ron Allen Medicine, Encounter Date: 01/02/2025 Results Created Date Observation Date Name Description Value Unit Range Abnormal Flag Note LastModifiedBy Organization Detail LastModifiedTime 11/23/19 24 11/23/2023 CBC/C OMPLE TE BLD COUNT W/DIF F white blood cells 6.1 x10'3 /uL 4.2-10 .8 Not Available [facility] (Lab) [address] [place], [address], 11/23/2023 19:28:26 11/23/19 24 11/23/2023 CBC/C OMPLE TE BLD COUNT W/DIF F red blood cells 4.27 x10'6 /uL 3.80-5 .20 Not Available [facility] (Lab) [address] [facility], [address], 11/23/2023 19:28:26 11/23/19 24 11/23/2023 CBC/C OMPLE TE BLD COUNT W/DIF F hemoglobin 13.0 g/dL 12.0-1 5.6 Not Available [facility] (Lab) [address] [place], [address], 11/23/2023 19:28:26 11/23/19 24 11/23/2023 CBC/C OMPLE TE BLD COUNT W/DIF F hematocrit 41.3 % 35.7-4 5.7 Not Available [facility] (Lab) [address] [place], [address], 11/23/2023 19:28:26 11/23/19 24 11/23/2023 CBC/C OMPLE TE BLD COUNT W/DIF F mean red cell volume 96.7 fL 82.0-9 9.0 Not Available [facility] (Lab) [address] [place], [address], 11/23/2023 19:28:26 11/23/19 24 11/23/2023 CBC/C OMPLE TE BLD COUNT W/DIF F mean red cell hemoglobin 30.4 pg 27.0-3 3.0 Not Available [facility] (Lab) [address] [place], [address], 11/23/2023 19:28:26 11/23/19 24 11/23/2023 CBC/C OMPLE TE BLD COUNT W/DIF F mean RBC HGB concentratio n 31.5 g/dL 31.0-3 6.0 Not Available [facility] (Lab) [address] [place], [address], 11/23/2023 19:28:26 11/23/19 24 11/23/2023 CBC/C OMPLE TE BLD COUNT W/DIF F red cell distribution width 12.6 % 11.8-1 5.5 Not Available [facility] (Lab) [address] [place], [address], 11/23/2023 19:28:26 11/23/19 24 11/23/2023 CBC/C OMPLE TE BLD COUNT W/DIF F platelets 244 x10'3 /uL 150-40 0 Not Available [facility] (Lab) [address] [place], [address], 11/23/2023 19:28:26 11/23/19 24 11/23/2023 CBC/C OMPLE TE BLD COUNT W/DIF F mean platelet volume 10.5 fL 9.0-12 .4 Not Available [facility] (Lab) [address] [place], [address], 11/23/2023 19:28:26 11/23/19 24 11/23/2023 CBC/C OMPLE TE BLD COUNT W/DIF F neutrophils 61.9 % 39.0-7 2.0 Not Available [facility] (Lab) [address] [place], [address], 11/23/2023 19:28:26 11/23/19 24 11/23/2023 CBC/C OMPLE TE BLD COUNT W/DIF F lymphocytes 27.1 % 16.0-4 7.0 Not Available [facility] (Lab) [address] [place], [address], 11/23/2023 19:28:26 11/23/19 24 11/23/2023 CBC/C OMPLE TE BLD COUNT W/DIF F monocytes 6.6 % 5.0-12 .0 Not Available [facility] (Lab) [address] [place], [address], 11/23/2023 19:28:26 11/23/19 24 11/23/2023 CBC/C OMPLE TE BLD COUNT W/DIF F eosinophils 3.3 % 1.0-7. 0 Not Available [facility] (Lab) [address] [place], [address], 11/23/2023 19:28:26 11/23/19 24 11/23/2023 CBC/C OMPLE TE BLD COUNT W/DIF F basophils 0.8 % 0.0-2. 0 Not Available [facility] (Lab) [address] [place], [address], 11/23/2023 19:28:26 11/23/19 24 11/23/2023 CBC/C OMPLE TE BLD COUNT W/DIF F immature granulocytes 0.3 % 0.00-0 .50 Not Available [facility] (Lab) [address] [place], [address], 11/23/2023 19:28:26 11/23/19 24 11/23/2023 CBC/C OMPLE TE BLD COUNT W/DIF F neutrophils, absolute count 3.76 x10'3 /uL 1.5-8. 0 Not Available [facility] (Lab) [address] [place], [address], 11/23/2023 19:28:26 11/23/19 24 11/23/2023 CBC/C OMPLE TE BLD COUNT W/DIF F lymphocytes, absolute count 1.65 x10'3 /uL 1.07-3 .43 Not Available [facility] (Lab) [address] [place], [address], 11/23/2023 19:28:26 11/23/19 24 11/23/2023 CBC/C OMPLE TE BLD COUNT W/DIF F monocytes, absolute count 0.40 x10'3 /uL 0.29-0 .99 Not Available [facility] (Lab) [address] [place], [address], 11/23/2023 19:28:26 11/23/19 24 11/23/2023 CBC/C OMPLE TE BLD COUNT W/DIF F eosinophils, absolute count 0.20 x10'3 /uL 0.02-0 .53 Not Available [facility] (Lab) [address] [place], [address], 11/23/2023 19:28:26 11/23/19 24 11/23/2023 CBC/C OMPLE TE BLD COUNT W/DIF F basophils, absolute count 0.05 x10'3 /uL 0.01-0 .08 Not Available [facility] (Lab) [address] [place], [address], 11/23/2023 19:28:26 11/23/19 24 11/23/2023 CBC/C OMPLE TE BLD COUNT W/DIF F immature granulocytes ,absolute 0.02 x10'3 /uL 0.00-0 .05 Not Available [facility] (Lab) [address] [place], [address], 11/23/2023 19:28:26 11/23/19 24 11/23/2023 CBC/C OMPLE TE BLD COUNT W/DIF F nucleated red blood cells 0.0 % -0 Not Available [facility] (Lab) [address] [place], [address], 11/23/2023 19:28:26 11/23/19 24 11/23/2023 CBC/C OMPLE TE BLD COUNT W/DIF F NRBC# 0.00 x10'3 /uL Not Available [facility] (Lab) [address] [place], [address], 11/23/2023 19:28:26 11/23/19 24 11/23/2023 LIPID PANEL cholesterol 207 mg/dL 140-19 9 high NIH BRANDT NSUS RECOM MENDA TION FOR ABHI STERO L: ADULT CHILD LOW RISK: <200 <170 BORDE RLINE : <200- 239 ----- HIGH RISK: >240 >200 Not Available [facility] (Lab) [address] [place], [address], 11/23/2023 19:40:49 11/23/19 24 11/23/2023 LIPID PANEL triglyceride s 94 mg/dL 0-150 NIH BRANDT NSUS REPOR T RECOM MENDA TION FOR TRIGL YCERI MADELEINE: ADULT CHILD LOW RISK: <150 ----- BODER LINE: 150-1 99 ----- HIGH RISK: >200 ----- Not Available [facility] (Lab) [address] [place], [address], 11/23/2023 19:40:49 11/23/19 24 11/23/2023 LIPID PANEL HDL cholesterol 67 mg/dL 40- Not Available [facility] (Lab) [address] [place], [address], 11/23/2023 19:40:49 11/23/19 24 11/23/2023 LIPID PANEL LDL cholesterol, calculated 121 mg/dL 0-130 NIH BRANDT NSUS REPOR T RECOM MENDA [...] Available [facility] (Lab) [address] [place], [address], 11/23/2023 19:40:49 11/23/19 24 11/23/2023 COMPR EHENS GISEL METAB OLIC PANEL sodium 139 mmol/ L 137-14 5 Not Available [facility] (Lab) [address] [place], [address], 11/23/2023 19:40:55 11/23/19 24 11/23/2023 COMPR EHENS GISEL METAB OLIC PANEL potassium 5.0 mmol/ L 3.5-5. 1 Not Available [facility] (Lab) [address] [place], [address], 11/23/2023 19:40:55 11/23/19 24 11/23/2023 COMPR EHENS GISEL METAB OLIC PANEL chloride 102 mmol/ L 98-107 Not Available [facility] (Lab) [address] [place], [address], 11/23/2023 19:40:55 11/23/19 24 11/23/2023 COMPR EHENS GISEL METAB OLIC PANEL carbon dioxide 31 mmol/ L 22-30 high Not Available [facility] (Lab) [address] [place], [address], 11/23/2023 19:40:55 11/23/19 24 11/23/2023 COMPR EHENS GISEL METAB OLIC PANEL anion gap 11.0 mmol/ L 14-22 low Not Available [facility] (Lab) [address] [place], [address], 11/23/2023 19:40:55 11/23/19 24 11/23/2023 COMPR EHENS GISEL METAB OLIC PANEL glucose 95 mg/dL 70-99 Not Available [facility] (Lab) [address] [place], [address], 11/23/2023 19:40:55 11/23/19 24 11/23/2023 COMPR EHENS GISEL METAB OLIC PANEL BUN 19 mg/dL 8-19 Not Available [facility] (Lab) [address] [place], [address], 11/23/2023 19:40:55 11/23/19 24 11/23/2023 COMPR EHENS GISEL METAB OLIC PANEL creatinine 0.51 mg/dL 0.66-1 .25 low Not Available [facility] (Lab) [address] [place], [address], 11/23/2023 19:40:55 11/23/19 24 11/23/2023 COMPR EHENS GISEL METAB OLIC PANEL GFR >60 Refer ence Range : Mangum ge GFR Healt hy Adult : >60 [...] or ethni c subgr oups, such as Hispr nics. Outsi de the valid ated rajeev [...] calcu lator is avail able on the F websi te: https ://rufina w.kid yoselin.o rg/pr lynette lakeal s/kdo qi/gf r_cal culat or Not Available [facility] (Lab) [address] [place], [address], 11/23/2023 19:40:55 11/23/19 24 11/23/2023 COMPR EHENS GISEL METAB OLIC PANEL alkaline phosphatase 101 U/L 38-126 Not Available [facility] (Lab) [address] [place], [address], 11/23/2023 19:40:55 11/23/19 24 11/23/2023 COMPR EHENS GISEL METAB OLIC PANEL alanine aminotransfe rase 25 U/L 0-35 Not Available [facility] (Lab) [address] [place], [address], 11/23/2023 19:40:55 11/23/19 24 11/23/2023 COMPR EHENS GISEL METAB OLIC PANEL aspartate aminotransfe rase 30 U/L 15-37 Not Available [facility] (Lab) [address] [place], [address], 11/23/2023 19:40:55 11/23/19 24 11/23/2023 COMPR EHENS GISEL METAB OLIC PANEL bilirubin, total 0.40 mg/dL 0.20-1 .30 Not Available [facility] (Lab) [address] [place], [address], 11/23/2023 19:40:55 11/23/19 24 11/23/2023 COMPR EHENS GISEL METAB OLIC PANEL calcium 10.0 mg/dL 8.4-10 .2 Not Available [facility] (Lab) [address] [place], [address], 11/23/2023 19:40:55 11/23/19 24 11/23/2023 COMPR EHENS GISEL METAB OLIC PANEL total protein 7.5 g/dL 6.3-8. 2 Not Available [facility] (Lab) [address] [place], [address], 11/23/2023 19:40:55 11/23/19 24 11/23/2023 COMPR EHENS GISEL METAB OLIC PANEL albumin 4.3 g/dL 3.0-4. 4 Not Available [facility] (Lab) [address] [place], [address], 11/23/2023 19:40:55 11/23/19 24 11/23/2023 COMPR EHENS GISEL METAB OLIC PANEL globulin 3.2 g/dL 2.6-4. 2 Not Available [facility] (Lab) [address] [place], [address], 11/23/2023 19:40:55 11/23/19 24 11/23/2023 COMPR EHENS GISEL METAB OLIC PANEL A/G ratio 1.3 ratio 1.0-2. 0 Not Available [facility] (Lab) [address] [place], [address], 11/23/2023 19:40:55 11/23/19 24 11/23/2023 T4 FREE free T4 0.87 NG/dL 0.78-2 .19 Not Available [facility] (Lab) [address] [place], [address], 11/23/2023 20:11:50 11/23/19 24 11/23/2023 VITAM IN D 25-HY DROXY [id number] 37.1 NG/mL 30-100 Vitam in D Statu s: Defic ient: <20 ng/mL Insuf ficie nt: 20-29 ng/mL Suffi cient : 30-10 0 ng/mL Not Available [facility] (Lab) [address] [place], [address], 11/23/2023 20:12:21 11/23/19 24 11/23/2023 TSH thyroid-stim ulating hormone 2.100 uIU/m L 0.465- 4.680 Not Available [facility] (Lab) [address] [place], [address], 11/23/2023 20:12:45 05/22/20 24 05/22/2024 LIPID PANEL cholesterol 245 mg/dL 140-19 9 high NIH BRANDT NSUS RECOM MENDA TION FOR ABHI STERO L: ADULT CHILD LOW RISK: <200 <170 BORDE RLINE : <200- 239 ----- HIGH RISK: >240 >200 Not Available [facility] (Lab) [address] [place], [address], 05/22/2024 18:37:16 05/22/2005/22/2024 LIPID PANEL triglyceride s 121 mg/dL 0-150 NIH BRANDT NSUS REPOR T RECOM MENDA TION FOR TRIGL YCERI MADELEINE: ADULT CHILD LOW RISK: <150 ----- BODER LINE: 150-1 99 ----- HIGH RISK: >200 ----- Not Available [facility] (Lab) [address] [place], [address], 05/22/2024 18:37:16 05/22/2005/22/2024 LIPID PANEL HDL cholesterol 71 mg/dL 40- Not Available [facility] (Lab) [address] [place], [address], 05/22/2024 18:37:16 05/22/20 24 05/22/2024 LIPID PANEL [...] WILL NOT BE REPOR EKATERINA. Not Available [facility] (Lab) [address] [place], [address], 05/22/2024 18:37:16 05/22/2005/22/2024 COMPR EHENS GISEL METAB OLIC PANEL sodium 136 mmol/ L 137-14 5 low Not Available [facility] (Lab) [address] [place], [address], 05/22/2024 18:37:24 05/22/20 24 05/22/2024 COMPR EHENS GISEL METAB OLIC PANEL potassium 4.5 mmol/ L 3.5-5. 1 Not Available [facility] (Lab) [address] [place], [address], 05/22/2024 18:37:24 05/22/20 24 05/22/2024 COMPR EHENS GISEL METAB OLIC PANEL chloride 107 mmol/ L 98-107 Not Available [facility] (Lab) [address] [place], [address], 05/22/2024 18:37:24 05/22/20 24 05/22/2024 COMPR EHENS GISEL METAB OLIC PANEL carbon dioxide 27 mmol/ L 22-30 Not Available [facility] (Lab) [address] [place], [address], 05/22/2024 18:37:24 05/22/20 24 05/22/2024 COMPR EHENS GISEL METAB OLIC PANEL anion gap 6.5 mmol/ L 14-22 low Not Available [facility] (Lab) [address] [place], [address], 05/22/2024 18:37:24 05/22/20 24 05/22/2024 COMPR EHENS GISEL METAB OLIC PANEL glucose 99 mg/dL 70-99 Not Available [facility] (Lab) [address] [place], [address], 05/22/2024 18:37:24 05/22/20 24 05/22/2024 COMPR EHENS GISEL METAB OLIC PANEL BUN 15 mg/dL 8-19 Not Available [facility] (Lab) [address] [place], [address], 05/22/2024 18:37:24 05/22/20 24 05/22/2024 COMPR EHENS GISEL METAB OLIC PANEL creatinine 0.60 mg/dL 0.66-1 .25 low Not Available [facility] (Lab) [address] [place], [address], 05/22/2024 18:37:24 05/22/20 24 05/22/2024 COMPR EHENS GISEL METAB OLIC PANEL GFR >60 Refer ence Range : Mangum ge GFR Healt hy Adult : >60 [...] calcu lator is avail able on the [facility] websi te: https ://rufian wyatt.daxa arredondo/pr ofess ional s/kdo qi/gf r_cal culat or Not Available [facility] (Lab) [address] [place], [address], 05/22/2024 18:37:24 05/22/20 24 05/22/2024 COMPR EHENS GISEL METAB OLIC PANEL alkaline phosphatase 82 U/L 38-126 Not Available [facility] (Lab) [address] [place], [address], 05/22/2024 18:37:24 05/22/20 24 05/22/2024 COMPR EHENS GISEL METAB OLIC PANEL alanine aminotransfe rase 23 U/L 0-35 Not Available [facility] (Lab) [address] [place], [address], 05/22/2024 18:37:24 05/22/20 24 05/22/2024 COMPR EHENS GISEL METAB OLIC PANEL aspartate aminotransfe rase 35 U/L 15-37 Not Available [facility] (Lab) [address] [place], [address], 05/22/2024 18:37:24 05/22/20 24 05/22/2024 COMPR EHENS GISEL METAB OLIC PANEL bilirubin, total 0.40 mg/dL 0.20-1 .30 Not Available [facility] (Lab) [address] [place], [address], 05/22/2024 18:37:24 05/22/20 24 05/22/2024 COMPR EHENS GISEL METAB OLIC PANEL calcium 9.3 mg/dL 8.4-10 .2 Not Available [facility] (Lab) [address] [place], [address], 05/22/2024 18:37:24 05/22/2005/22/2024 COMPR EHENS GISEL METAB OLIC PANEL total protein 7.5 g/dL 6.3-8. 2 Not Available [facility] (Lab) [address] [place], [address], 05/22/2024 18:37:24 05/22/20 24 05/22/2024 COMPR EHENS GISEL METAB OLIC PANEL albumin 4.6 g/dL 3.0-4. 4 high Not Available [facility] (Lab) [address] [place], [address], 05/22/2024 18:37:24 05/22/20 24 05/22/2024 COMPR EHENS GISEL METAB OLIC PANEL globulin 2.9 g/dL 2.6-4. 2 Not Available [facility] (Lab) [address] [place], [address], 05/22/2024 18:37:24 05/22/20 24 05/22/2024 COMPR EHENS GISEL METAB OLIC PANEL A/G ratio 1.6 ratio 1.0-2. 0 Not Available [facility] (Lab) [address] [place], [address], 05/22/2024 18:37:24 05/22/20 24 05/22/2024 CBC/C OMPLE TE BLD COUNT W/DIF F white blood cells 4.1 x10'3 /uL 4.2-10 .8 low Not Available [facility] (Lab) [address] [place], [address], 05/22/2024 18:40:10 05/22/20 24 05/22/2024 CBC/C OMPLE TE BLD COUNT W/DIF F red blood cells 4.25 x10'6 /uL 3.80-5 .20 Not Available [facility] (Lab) [address] [place], [address], 05/22/2024 18:40:10 05/22/20 24 05/22/2024 CBC/C OMPLE TE BLD COUNT W/DIF F hemoglobin 12.8 g/dL 12.0-1 5.6 Not Available [facility] (Lab) [address] [place], [address], 05/22/2024 18:40:10 05/22/20 24 05/22/2024 CBC/C OMPLE TE BLD COUNT W/DIF F hematocrit 39.8 % 35.7-4 5.7 Not Available [facility] (Lab) [address] [place], [address], 05/22/2024 18:40:10 05/22/20 24 05/22/2024 CBC/C OMPLE TE BLD COUNT W/DIF F mean red cell volume 93.6 fL 82.0-9 9.0 Not Available [facility] (Lab) [address] [place], [address], 05/22/2024 18:40:10 05/22/20 24 05/22/2024 CBC/C OMPLE TE BLD COUNT W/DIF F mean red cell hemoglobin 30.1 pg 27.0-3 3.0 Not Available [facility] (Lab) [address] [place], [address], 05/22/2024 18:40:10 05/22/20 24 05/22/2024 CBC/C OMPLE TE BLD COUNT W/DIF F mean RBC HGB concentratio n 32.2 g/dL 31.0-3 6.0 Not Available [facility] (Lab) [address] [place], [address], 05/22/2024 18:40:10 05/22/20 24 05/22/2024 CBC/C OMPLE TE BLD COUNT W/DIF F red cell distribution width 12.5 % 11.8-1 5.5 Not Available [facility] (Lab) [address] [place], [address], 05/22/2024 18:40:10 05/22/20 24 05/22/2024 CBC/C OMPLE TE BLD COUNT W/DIF F platelets 241 x10'3 /uL 150-40 0 Not Available [facility] (Lab) [address] [place], [address], 05/22/2024 18:40:10 05/22/20 24 05/22/2024 CBC/C OMPLE TE BLD COUNT W/DIF F mean platelet volume 10.6 fL 9.0-12 .4 Not Available [facility] (Lab) [address] [place], [address], 05/22/2024 18:40:10 05/22/20 24 05/22/2024 CBC/C OMPLE TE BLD COUNT W/DIF F neutrophils 62.1 % 39.0-7 2.0 Not Available [facility] (Lab) [address] [place], [address], 05/22/2024 18:40:10 05/22/20 24 05/22/2024 CBC/C OMPLE TE BLD COUNT W/DIF F lymphocytes 25.2 % 16.0-4 7.0 Not Available [facility] (Lab) [address] [place], [address], 05/22/2024 18:40:10 05/22/20 24 05/22/2024 CBC/C OMPLE TE BLD COUNT W/DIF F monocytes 8.3 % 5.0-12 .0 Not Available [facility] (Lab) [address] [place], [address], 05/22/2024 18:40:10 05/22/20 24 05/22/2024 CBC/C OMPLE TE BLD COUNT W/DIF F eosinophils 3.4 % 1.0-7. 0 Not Available [facility] (Lab) [address] [place], [address], 05/22/2024 18:40:10 05/22/20 24 05/22/2024 CBC/C OMPLE TE BLD COUNT W/DIF F basophils 1.0 % 0.0-2. 0 Not Available [facility] (Lab) [address] [place], [address], 05/22/2024 18:40:10 05/22/20 24 05/22/2024 CBC/C OMPLE TE BLD COUNT W/DIF F immature granulocytes 0.0 % 0.00-0 .50 Not Available [facility] (Lab) [address] [place], [address], 05/22/2024 18:40:10 05/22/20 24 05/22/2024 CBC/C OMPLE TE BLD COUNT W/DIF F neutrophils, absolute count 2.54 x10'3 /uL 1.5-8. 0 Not Available [facility] (Lab) [address] [place], [address], 05/22/2024 18:40:10 05/22/20 24 05/22/2024 CBC/C OMPLE TE BLD COUNT W/DIF F lymphocytes, absolute count 1.03 x10'3 /uL 1.07-3 .43 low Not Available [facility] (Lab) [address] [place], [address], 05/22/2024 18:40:10 05/22/20 24 05/22/2024 CBC/C OMPLE TE BLD COUNT W/DIF F monocytes, absolute count 0.34 x10'3 /uL 0.29-0 .99 Not Available [facility] (Lab) [address] [place], [address], 05/22/2024 18:40:10 05/22/20 24 05/22/2024 CBC/C OMPLE TE BLD COUNT W/DIF F eosinophils, absolute count 0.14 x10'3 /uL 0.02-0 .53 Not Available [facility] (Lab) [address] [place], [address], 05/22/2024 18:40:10 05/22/20 24 05/22/2024 CBC/C OMPLE TE BLD COUNT W/DIF F basophils, absolute count 0.04 x10'3 /uL 0.01-0 .08 Not Available [facility] (Lab) [address] [place], [address], 05/22/2024 18:40:10 05/22/20 24 05/22/2024 CBC/C OMPLE TE BLD COUNT W/DIF F immature granulocytes ,absolute 0.00 x10'3 /uL 0.00-0 .05 Not Available [facility] (Lab) [address] [place], [address], 05/22/2024 18:40:10 05/22/20 24 05/22/2024 CBC/C OMPLE TE BLD COUNT W/DIF F nucleated red blood cells 0.0 % -0 Not Available [facility] (Lab) [address] [place], [address], 05/22/2024 18:40:10 05/22/20 24 05/22/2024 CBC/C OMPLE TE BLD COUNT W/DIF F NRBC# 0.00 x10'3 /uL Not Available [facility] (Lab) [address] [place], [address], 05/22/2024 18:40:10 05/22/20 24 05/22/2024 T4 FREE free T4 0.89 NG/dL 0.78-2 .19 Not Available [facility] (Lab) [address] [place], [address], 05/22/2024 19:05:01 05/22/20 24 05/22/2024 TSH thyroid-stim ulating hormone 1.610 uIU/m L 0.465- 4.680 Not Available [facility] (Lab) [address] [place], [address], 05/22/2024 19:47:59 05/22/20 24 05/22/2024 VITAM IN B12 (ELAINE CAREY ) vb12 327 pg/mL 239-93 1 Not Available [facility] (Lab) [address] [place], [address], 05/22/2024 19:56:26 05/22/20 24 05/22/2024 FOLAT E, SERUM /PLAS MA folate 5.08 NG/mL 2.76-2 0.0 Not Available [facility] (Lab) [address] [place], [address], 05/22/2024 19:56:27 05/22/20 24 05/22/2024 VITAM IN D 25-HY DROXY vd25oh 34.3 NG/mL 30-100 Vitam in D Statu s: Defic ient: <20 ng/mL Insuf ficie nt: 20-29 ng/mL Suffi cient : 30-10 0 ng/mL Not Available [facility] (Lab) [address], [place], [address], 05/22/2024 20:53:04 05/09/20 24 05/03/2024 CT, brain , w/o contr ast No observ ation record ed. [facility] Not Available 2023 16:33:25 05/09/20 24 05/03/2024 imagi ng/di agnos tic resul t No observ ation record ed. [facility] Not Available 2023 16:39:14 06/04/20 24 06/04/2024 audio gram + tympa nogra m No observ ation record ed. [email or web address] [facility] Audiology [address], [place], [address], 06/04/2024 16:23:51 06/05/20 24 06/05/2024 audio gram + tympa nogra m No observ ation record ed. BARCODE [facility] [address], [place], [address], 06/05/2024 15:23:10 07/14/20 24 07/13/2024 MRI, brain , w/o contr ast No observ ation record ed. [facility] [address], [place], [address], 07/14/2024 09:40:54 07/27/20 24 DEXA, axial skele ton [facility] [address] [place] [address] Patien t Name: BRUNA COBB Access ion #: [id number] Sex: F : 1950 4 Dictat ed By: Casey Matthew Attend ing Physic tez: AMALIA EVANS KOLEMarniALECIA Casimiro Orderjohn suzanne Physic tez: KIEL DALY Exam Date: 2023 13:15 PM Exam Name: [...] receiv ed treatm ent. T-scor e: compar ramón by sam rd deviat ion (SD) to a young adult popula tion, Page 1 [facility] [place] [address] [phone] Patien t Name: BRUNA COBB Access ion #: [id number] Sex: F : 1950 4 Dictat ed By: Casey Matthew Attend ing Physic tez: KIEL Rock AMALIA MEGANANNETTE Hira palacios Physic tez: AMALIA EVANS KOLEMarniALECIA Rock Exam Date: 2023 13:15 PM Exam [...] at 2023 13:35: 51 PM Page 2 [facility] (Imaging) [address] [place], [address], 07/27/2024 14:38:15 07/27/20 24 07/27/2024 DEXA, axial skele ton No observ ation record ed. [facility] [address] [place], [address], 07/27/2024 14:45:48 08/21/20 24 08/21/2024 imagi ng/di agnos tic resul t No observ ation record ed. [address], [place], [address], 08/21/2024 17:59:14 Result Notes None recorded. Problems Name Problem SNOMED Code Status Onset Date Resolution Date Notes Provider Name and Address Organization Details Recorded Time Low back pain 020758835 Active 2021 Not Available [facility] 4 05:18:11 Vitamin D deficiency 03562828 Active 2022 Not Available [employer] 4 05:18:11 Hyperlipid emia 06487815 Active 2021 Not Available [facility] 4 05:18:11 Diarrhea 59101064 Active 2021 Not Available [facility] 4 05:18:11 Leukopenia 36058109 Active 2022 Not Available [facility] 4 05:18:11 Seizure 67759030 Active 2021 Not Available [facility] 4 05:18:11 Hypothyroi dism 46431124 Active 2022 Not Available [facility] 4 05:18:11 Normocalce arnold primary hyperparat hyroidism 4749944253280 39809 Active 2022 Not Available [facility] 4 05:18:11 Skin lesion 34507021 Active 2022 Not Available [facility] 4 05:18:11 Essential hypertensi on 49863862 Active 2022 Not Available [facility] 4 05:18:11 Asthma 256461349 Active 2022 Not Available [facility] 4 05:18:11 Visual impairment 885239613 Active 2022 Not Available [facility] 4 05:18:11 Osteopenia 270664943 Active 2022 Not Available [facility] 4 05:18:11 Liver enzymes level above reference range 299566441 Active 2022 Not Available [facility] 4 05:18:11 Vertigo 595907677 Active 2023 Justine Burgess MA null, [facility] 4 12:52:04 Benign paroxysmal positional vertigo 481275093 Active 2023 Sun Rush MD [address], [place], [address] , [facility] [employer] [facility] 4 12:17:11 Anti-nucle ar factor detected 475860151 Active 2023 Ang rock MD [address], [address], [place], [address] , [facility] [employer] [facility] 4 19:15:11 Upper respirator y infection 05021126 Active 2024 Ang rock MD [address], [address], [place], [address] , [email or web address] 15:07:18 Problem Notes None recorded. Procedures Surgical History Date Name Laterality Status Provider Name and Address Organization Details Recorded Time 10/03/20 Medicare Wellness CPT Code, subsequent completed Mihir Carreon LPN [facility] [employer] 10/03/2024 08:23:22 06/13/20 Medicare Wellness CPT Code, Initial completed Janine Soto RN [facility] [employer] 06/13/2023 12:23:37 Hysterectomy completed Not Available [facility] 12/15/2022 05:05:00 repair of abdominal fistula completed Not Available [facility] 12/15/2022 05:05:00 Imaging Results Imaging Date Name Status LastModified by Organiz ation Details LastModified Time 05/03/2024 CT, brain, w/o contrast active [facility] Information not available 05/09/2024 16:33:25 05/03/2024 imaging/diagnos tic result active [facility] Information not available 05/09/2024 16:39:14 06/04/2024 audiogram + tympanogram completed [email or web address] [facility] [address], [place], [address], 06/04/2024 16:23:51 06/05/2024 audiogram + tympanogram completed BAR[facility] [address], [place], [address], 06/05/2024 15:23:10 07/13/2024 MRI, brain, w/o contrast active [facility] [address], [place], [address], 07/14/2024 09:40:54 07/27/2024 DEXA, axial skeleton active [facility] (Imaging) [address], [place], [address], 07/27/2024 14:38:15 07/27/2024 DEXA, axial skeleton active [facility] [address], [place], [address], 07/27/2024 14:45:48 08/21/2024 imaging/diagnos tic result active [facility] [address], [place], [address], 08/21/2024 17:59:14 Procedure Notes None recorded. Medical [...] BY MOUTH EVERY DAY IN THE MORNING 2024 active Not Available Not Available Not Avai lable ergocalci ferol (vitamin D2) 1,250 mcg (50,000 [...] Not Available rosuvasta tin 20 mg tablet TAKE 1 TABLET BY MOUTH EVERY DAY 2024 active Not Available Not Available Not Avai lable rosuvasta tin 40 mg tablet TAKE 1 [...] Updated DateTime 4 162.56 cm 30.6 kg/m2 03471.4 4 g 97.3 [degF] 66 /min 118 mm[Hg] 70 mm[Hg] Sravani Gadlamez [facility] [employer] [facility] 4 11:55:28 Date Recorded Body height Body mass index (BMI) Body weight Body temperature Provider Name and Address Organization Details Last Updated DateTime 05/17/2024 162.56 cm 29.6 kg/m2 67562.61 g 97.7 [degF] [facility] [employer] [facility] 05/17/2024 12:03:55 Date Recorded Body height Body mass index (BMI) Body weight Body temperature Heart rate Systolic blood pressure Diastolic blood pressure Provider Name and Address Organization Details Last Updated DateTime 4 162.56 cm 28.5 kg/m2 07082.3 3 g 97.6 [degF] 72 /min 134 mm[Hg] 72 mm[Hg] Sravani Galdamez Casimiro [facility] [employer] [facility] 13:55:40 Date Recorded Body height Body mass index (BMI) Body weight Body temperature Heart rate Respiratory rate Oxygen saturation Oxygen saturation in Arterial blood by Pulse oximetry Systolic blood pressure Diastolic blood pressure Provider Name and Address Organization Details Last Updated DateTime 4 162.56 cm 27.5 kg/m2 12388.7 8 g 97.5 [degF] 66 /min 16 /min 96 % 96 % 148 mm[Hg] 80 mm[Hg] Mihir Carreon LPN [place] - [employer] 4 14:01:37 Date Recorded Body height Body mass index (BMI) Body weight Body temperature Heart rate Systolic blood pressure Diastolic blood pressure Provider Name and Address Organization Details Last Updated DateTime 5 162.56 cm 27.6 kg/m2 56013.3 7 g 97.2 [degF] 66 /min 128 mm[Hg] 68 mm[Hg] SravaniYRN Mo [place] - [facility] 5 14:55:20 Social History Question Answer Notes LastModified by Organization Details LastModified Time Tobacco Smoking Status Never Smoker Not Available [employer] 12/15/2022 05:03:39 Do You Have An Advance Directive? Yes MIGRATION.030 [id number] Information not available 12/15/2022 Do You Wear A Helmet When Biking? No Does Not Bike [email or web address] Information not available 10/03/2024 Are You Blind Or Do You Have Difficulty Seeing? No MIGRATION.0301 [id number] Information not available 12/15/2022 What Is Your Level Of Caffeine Consumption? Occasional MIGRATION.030 258599 Information not available 12/15/2022 In The 14 Days Before Symptom Onset, Have You Had Close Contact With A Laboratory-confi rmed COVID-19 While That Case Was Ill? No MIGRATION.030 652345 Information not available 12/15/2022 In The 14 Days Before Symptom Onset, Have You Had Close Contact With A Person Who Is Under Investigation For COVID-19 While That Person Was Ill? No MIGRATION.0301 352354 Information not available 12/15/2022 Are You Deaf Or Do You Have Serious Difficulty Hearing? No MIGRATION.030 950523 Information not available 12/15/2022 What Type Of Diet Are You Following? REGULAR MIGRATION.030 110433 Information not available 12/15/2022 What Is The Highest Grade Or Level Of School You Have Completed Or The Highest Degree You Have Received? [id number] MIGRATION.030 082531 Information not available 12/15/2022 Have There Been Any Changes To Your Family Or Social Situation? No Patient Bought New House So Grandson Could Live With Her. [email or web address] Information not available 10/03/2024 What Is The Fluoride Status Of Your Home? Unknown MIGRATION.0301 645785 Information not available 12/15/2022 Are There Any Guns Present In Your Home? No MIGRATION.0301 232499 Information not available 12/15/2022 Do You Use Insect Repellent Routinely? No MIGRATION.0301 994048 Information not available 12/15/2022 Where Do You Live? SingleLevelHouse MIGRATION.0301 110478 Information not available 12/15/2022 Presence Of Domestic [...] Do You Have A Medical Power Of Sanitation Engineer? Yes MIGRATION.0301 307333 Information not available 12/15/2022 What Was The Date Of Your Most Recent Tobacco Screening? 01/02/2025 Information not available 01/02/2025 Do You Have Any Pets? Yes Dog [email or web address] Information not available 10/03/2024 What Is Your Relationship Status? MIGRATION.0301 623136 Information not available 12/15/2022 Do You Use Your Seat Belt Or Car Seat Routinely? Yes MIGRATION.0301 327387 Information not available 12/15/2022 Do You Have Smoke And Carbon Monoxide Detectors In Your Home? Yes MIGRATION.0301 949977 Information not available 12/15/2022 Are You Passively Exposed To Smoke? No MIGRATION.0301 219999 Information not available 12/15/2022 Are There Any Smokers In Your House? No MIGRATION.0301 648266 Information not available 12/15/2022 What Types Of Sporting Activities Do You Participate In? None MIGRATION.0301 361262 Information not available 12/15/2022 Do You Use Sunscreen Routinely? Yes MIGRATION.0301 613811 Information not available 12/15/2022 Has Tobacco Cessation Counseling Been Provided? No MIGRATION.0301 229360 Information not available 12/15/2022 Have You Recently Traveled Abroad? No MIGRATION.0301 091148 Information not available 12/15/2022 Do You Have Difficulty Walking Or Climbing Stairs? No MIGRATION.0301 130547 Information not available 12/15/2022 Do You Have Any Dietary Restrictions? No MIGRATION.0301 071490 Information not available 12/15/2022 Sex: Female Functional Status Question Answer Note LastModified by Organizat ion Details LastModified Time Do you use any illicit or recreational drugs? No MIGRATION.911983 3413 Information not available 12/15/2022 Do you or have you ever used any other forms of tobacco or nicotine? No MIGRATION.767834 9478 Information not available 12/15/2022 What is your level of alcohol consumption? None MIGRATION.861782 3364 Information not available 12/15/2022 Are you currently employed? No Retired [email or web address] Information not available 10/03/2024 Do you have transportation difficulties? No MIGRATION.362048 8728 Information not available 12/15/2022 Are you able to walk? YESWOREST MIGRATION.536321 0078 Information not available 12/15/2022 Do you have difficulty doing errands alone? No MIGRATION.857978 5167 Information not available 12/15/2022 Are you able to care for yourself? Yes MIGRATION.329145 1117 Information not available 12/15/2022 Do you have difficulty dressing or bathing? No MIGRATION.156458 3057 Information not available 12/15/2022 What is your exercise level? None Information not available 06/13/2023 Mental Status Question Answer Note LastModified by Organizat ion Details LastModified Time Do you feel stressed (tense, restless, nervous, or anxious, or unable to sleep at night)? [id number] MIGRATION.[id number] 26 Information not available 12/15/2022 Do you have difficulty concentrating, remembering or making decisions? No MIGRATION.86710049 26 Information not available 12/15/2022 Family History Relationship Description Onset Age of this Age Resolved Age Notes LastModified by Organization Details LastModified Time Son Malignant neoplastic disease MIGRATION.155 [id number] Not available 12/15/2022 05:05:05 Notes:NO ENT Medical History Condition Response NERVE DISEASE N BLINDNESS N RHEUMATIC FEVER N KIDNEY STONES N BLADDER PROBLEMS N MRSA N OTHER # 1 N POLIO N LUNG DISEASE/DISORDER N HISTORY OF DRUG ABUSE N RADIATION / CHEMOTHERAPY N COPD N Other # 2 N BLOOD DISEASES N EAR OR HEARING PROBLEMS N MUMPS N SHINGLES N DEPRESSION (INCLUDING POST ) N BOWEL PROBLEMS N STROKE/TIA N ULCERS N BENIGN PROSTATIC HYPERPLASIA N MEASLES N HYPOTENSION N MYOCARDIAL INFARCTION N OBESITY N GERD/NAUSEA N ANEURYSM N URINARY/BLADDER/KIDNEY PROBLEMS N CORONARY ARTERY DISEASE (CAD) N ADDICTION CONCERNS N Impotence N ENDOMETRIOSIS N USE OF BLOOD THINNERS N SKIN [...] GLAUCOMA N FOOT PROBLEM N DIVERTICULITIS N SLEEP APNEA N CHICKENPOX N INFECTIOUS DISEASE N PROSTATE N HEART ARRHYTHMIA N INSOMNIA N HIGH CHOLESTEROL / HYPERLIPIDEMIA Y HYPERTHYROIDISM N EYE PROBLEMS N EDEMA N CHRONIC PAIN SYNDROME N HYPOTHYROIDISM N CONSTIPATION N CAROTID BLOCKAGE N BACK / NECK PROBLEMS Y ATHEROSCLEROSIS N BREAST PROBLEMS N DIALYSIS N ECZEMA N OSTEOPOROSIS N ARTHRITIS N APPENDICITIS N DIABETES, TYPE N BAD TEETH N ENT N HEARTBURN / REFLUX N AUTISM SPECTRUM DISORDER (ASD) N HEPATITIS / LIVER DISEASE N GOUT N SLEEP DISORDER N ALZHEIMER'S DISEASE N Brain Problems N HERPES N DEMENTIA N SEIZURES/EPILEPSY Y HEADACHES/MIGRAINES N VASCULAR DISEASE N PACEMAKER N Blood Disorder N DIZZINESS N KIDNEY DISEASE N HEART DISEASE/HEART PROBLEMS N MULTIPLE SCLEROSIS N CARDIAC ARRHYTHMIA N CANCER: SPECIFY N Gall Stones N ATRIAL FIBRILLATION N PULMONARY EMBOLISM N AUTOIMMUNE DISEASE N Gynecological HistoryNo gynecological history recorded. Obstetrics History GPAL:G 0 P 0 0 0 0 Immunizations Vaccine Type Date Status Note Provider Nam e and Address Organization Details Recorded Time zoster recombinant 3 completed AMIRAH Roche, [place] - [facility] [employer] 10/03/2024 12:51:19 zoster recombinant 3 [facility] 10/03/2024 12:51:19 RSV, recombinant, protein subunit RSVpreF, adjuvant reconstituted, 0.5 mL, PF 4 completed Mihir Carreon LPN null, [facility] 10/03/2024 12:51:19 COVID-19, mRNA, LNP-S, bivalent, PF, 50 mcg/0.5 mL or 25mcg/0.25 mL dose 2 completed Mihir Carreon LPN greyson, [facility] 10/03/2024 12:51:19 COVID-19, mRNA, LNP-S, PF, 100 mcg/0.5mL dose or 50 mcg/0.25mL dose 1 completed [facility] 10/03/2024 12:51:19 COVID-19, mRNA, LNP-S, PF, 100 mcg/0.5mL dose or 50 mcg/0.25mL dose 1 completed [facility] 10/03/2024 12:51:19 pneumococcal polysaccharide PPV23 8 completed Not Available [facility] 11/02/2023 05:18:11 Pneumococcal conjugate PCV 13 6 completed Not Available Critical access hospital 11/02/2023 05:18:11 COVID-19, mRNA, LNP-S, PF, 30 mcg/0.3 mL dose 1 completed AMIRAH Roche, [facility] 10/03/2024 12:51:19 Influenza, high-dose, trivalent, PF 0 completed Mihir Careron LPN greyson, [facility] 10/03/2024 12:51:19 Influenza, high-dose, quadrivalent, PF 2 completed Not Available Critical access hospital 11/02/2023 05:18:11 Influenza, high-dose, quadrivalent, PF 1 completed Not Available Critical access hospital 11/02/2023 05:18:11 Past Encounters Encounter ID Performer Location Encounter Start Date Encounter Closed Date Diagnosis/Indication Diagnosis SNOMED-CT Code Diagnosis ICD10 Code Diagnosis Note [id number] Ang rock MD [facility] [place] [address] [place] [address] [place] [address] 03/25/2021 00:00:00 03/25/2021 15:25:38 [id number] Ang rock MD [facility] [place] [address] [place] [address] [place] [address] 07/22/2021 00:00:00 08/10/2021 17:52:33 [id number] Ang rock MD [facility] Internal [facility] [place] [address] [place] [address] y , [place] [address] 09/02/2021 00:00:00 09/02/2021 12:07:00 [id number] Ang rock MD [facility] Internal [facility] [place] [address] [place] [address] [place] [address] 12/02/2021 00:00:00 12/02/2021 16:59:28 [id number] Ang rock MD [facility] Internal [facility] [place] [address] [place] [address] y , [place] [address] 02/17/2022 00:00:00 02/17/2022 12:33:10 [id number] Ang rock MD [facility] Internal [facility] [place] [address] [place] [address] [place] [address] 03/31/2022 00:00:00 03/31/2022 16:11:56 [id number] Ang rock MD [facility] Internal [facility] [place] [address] [place] [address] y , [place] [address] 08/02/2022 00:00:00 08/02/2022 12:54:15 [id number] Isha Whiting MD [facility] [place] [address] [place] [address] 09/06/2022 00:00:00 09/06/2022 14:52:58 [id number] Ang rock MD [facility] Internal Med [place] [address] [facility] [place] [address] 12/13/2022 00:00:00 12/13/2022 18:14:35 [id number] Isha Whiting MD [facility] [place] [address] [place] [address] 01/27/2023 12:08:08 01/27/2023 12:50:11 Hypothyroidism 62111019 E03.9 TSH and FT4 in low range [...] reduce inflammati on. Normocalce arnold primary hyperparathyroidism 0162861054 [id number] E21.0 She has evidence of elevated PTH [...] she chooses to go outside of the [facility] to obtain labwork she was [...] in her case. She voiced understand ing. [id number] Ang rock MD [facility] Internal [facility] [place] [address] [facility] [address] , [place] [address] 06/13/2023 11:50:12 06/13/2023 12:43:45 Screening - NAD [id number] Z13.9 Cologuard 03/30/2021 : +veC-scope 05/20/2021 : Dr Carter next in 10 years Mammogram: 10/23/2020 : Next in one yearMammog eulalio 10/27/2021 : NegMammogr am: 10/28/2022 : Neg DEXA: 10/23/2020 : WNL PAP: Dr Elliott 11/10/2020 Get yearly flu shotGet tdap if not doneUTD on the #13 09/2016 and #23 12/[address], [address] Kim iverson shinglantoni vaccineUTD on COVID 19 vaccine RTC in 3 monthsDo labsER if worseShe did verbalize his understand ing of the above Low back pain 650705984 M54.50 Xray L Spine 02/16/2022 , Xray [...] OV 06/13/2023 : Does well Skin lesion 71973783 L98 .9 Dr Cortez 09/28/2021 Essential hypertension 72239294 I10 On amlodipine 5mg dailyDoes wellGet a referral to Dr Juarez Hyperlipidemia 86006448 E78.5 Not on pravastati nOn rosuvastat in 40mg daily, but is taking 1/2 tabletMore diet and exercise, does not want to take an increased dose, states has been eating a lot of sweetsDo labs Asthma 697379933 J45.90 9 On duleraDoes wellNo complaints now Seizure 05873798 R56.9 On phenytoin 100mg 3 caps daily 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 819 Get B12 and folate level, also refer to Dr Garber Vitamin D deficiency 347 52516 E55.9 Get on vit d weekly and get lab Screening mammography 24 773561 Z12.31 Screening for osteoporosis 104209643 Z13.820 Adult [facility] th examination 068229893 Z00.00 Screening for disorder 960433181 Z13.9 Diarrhea 03888694 R19.7 Getting better, is hydrating, no abdominal pain, no N/V, no blood in stool or urine, good appetite, ate a salad last week and feels that this caused the diarrhea, notify of getting worse [id number] Isha Whiting MD [facility] [place] [address] [place] [address] 06/27/2023 12:09:39 06/27/2023 13:58:00 Hypothyroidism 51453867 E03.9 TSH and FT4 now in ideal [...] reduce inflammati on. Normocalce arnold primary hyperparathyroidism [id number] 91412015 E21.0 She has evidence of elevated PTH hormone in setting of normal calcium-sh e has mild bone loss-hawa nue on vitamin D 55572 IU weekly x 2 months and recommend [...] she chooses to go outside of the [facility] system to obtain labwork she was [...] her case. She voiced understand ing. Osteopenia 773140692 M85 .80 Continue monitoring of parathyroi d [...] answered and refills necessary at visit today. [id number] Ang rock MD [facility] [place] shaffer [address] [facility] [place] , [facility] [place] [address] 12/12/2023 11:48:44 12/12/2023 12:27:11 Screening - NAD 903156416 Z13.9 Cologuard 03/30/2021 : +veC-scope 05/20/2021 : [...] ing of the above Low back pain 813078736 M54.50 Xray L Spine 02/16/2022 , Xray Hips: 02/16/2022 : Discussed with patient Did see Dr Ernandez, does not want to see him anymore Skin lesion 89046957 L98 .9 Dr Cortez 09/28/2021 Essential hypertension 27945907 I10 On amlodipine 5mg dailyDoes well Dr Baron 06/17/2023 Hyperlipidemia 62966783 E78.5 Not on pravastati nOn rosuvastat in 40mg daily, takes 1/2 tabletMore diet and exercise, does not want to take an increased dose, states has been eating a lot of sweetsDo labs Asthma 176929199 J45.90 9 On duleraDoes wellNo complaints now Seizure 71188297 R56.9 On phenytoin 100mg 3 caps daily 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 819 Get B12 and folate level, also refer to Dr Garber Vitamin D deficiency 347 85105 E55.9 Get on vit d weekly and get lab Screening for osteoporosis 990964810 Z13.056 [id number] Sun Rush MD [facility] [place] [address] [place] [address] 05/17/2024 11:54:49 05/18/2024 08:43:25 Benign paroxysmal positional vertigo 808315512 H81.12 [id number] Ang rock MD [facility] Internal Med [place]ola shaffer [address] [facility] [place] [address] 06/13/2024 13:38:32 06/13/2024 14:27:20 Screening - NAD 554956330 Z13.9 Cologuard 03/30/2021 : +veC-scope 05/20/2021 : [...] ing of the above Low back pain 127877238 M54.50 Xray L Spine 02/16/2022 , Xray Hips: 02/16/2022 : Discussed with patient Did see Dr Ernandez, does not want to see him anymore Skin lesion 23376928 L98 .9 Dr Cortez 09/28/2021 Essential hypertension 02202697 I10 On amlodipine 5mg dailyDoes well Dr Baron 06/17/2023 Hyperlipidemia 07260673 E78.5 Not on pravastati nOn rosuvastat in 40mg daily, takes 1/2 tabletMore diet and exercise, does not want to take an increased dose, states has been eating a lot of sweets, understand s the risks for elevated lipidsDo labs Asthma 828968295 J45.90 9 On dulera, states that this is expensive, will change to advairDoes wellCori complaints now Seizure 92817199 R56.9 On phenytoin 100mg 3 caps daily Seizure free since age 13 years so for almost 60 years, reluctant to see neurology at this timeRenew as needed Liver enzy mes level above reference range 878932369 R74.01 S/p US liver 05/04/2021 S/p HIDA 06/12/2021 Dr Alvarado 09/29/2021 Visual impairment 611073 003 H54.7 Needs to get her eyes checked Refer to Dr Childress Osteopenia 111440018 M85 .80 Dr Whiting 09/06/2022 , 01/27/2023 Leukopenia 74540809 D72. 819 Get B12 and folate level, also refer to Dr Garber Vitamin D deficiency 347 79226 E55.9 Get on vit d weekly and get lab Screening for osteoporosis 700324914 Z13.820 Hypothyroidism 67819806 E03.9 [id number] Ang rock MD [facility] [place] shaffer [address] [facility] [address] [place] [address] 10/03/2024 13:53:59 10/03/2024 14:50:34 Screening - NAD 003906987 Z13.9 Cologuard 03/30/2021 : +veC-scope 05/20/2021 : [...] ing of the above Low back pain 138607793 M54.50 Xray L Spine 02/16/2022 , Xray Hips: 02/16/2022 : Discussed with patient Did see Dr Ernandez, does not want to see him anymore Skin lesion 08245522 L98 .9 Dr Cortez 09/28/2021 Essential hypertension 65923598 I10 On amlodipine 5mg dailyDoes well Dr Baron 06/17/2023 Hyperlipidemia 12584016 E78.5 Not on pravastati nOn rosuvastat in 40mg dailyMore diet and exercise, does not want to take an increased dose, states has been eating a lot of sweets, understand s the risks for elevated lipidsDo labs Asthma 204004831 J45.90 9 On dulera, states that this is expensive, will change to advair, today 10/03/2024 , states that she is not taking advairIs on albuterol PRNDoes wellNo complaints now Seizure 31619107 R56.9 On phenytoin 100mg 3 caps daily Seizure free since age 13 years so for almost 60 years, reluctant to see neurology at this timeRenew as needed Liver enzy mes level above reference range 111872598 R74.01 S/p US liver 05/04/2021 S/p HIDA 06/12/2021 Dr Alvarado 09/29/2021 Visual impairment 306054 003 H54.7 Needs to get her eyes checked Refer to Dr Childress Osteopenia 001724800 M85 .80 Dr Whiting 09/06/2022 , 01/27/2023 Leukopenia 25008390 D72. 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 Can see rheumatolo gist, prefers to not do any referrals at this time 10/03/2024 , will f/u with Dr Garber Adult [facility] th examination 105507228 Z00.00 Screening for disorder 804126041 Z13.9 Screening mammography 24 292681 Z12.31 [id number] Ang rock MD [facility] Primary Care [address] [place] [address] 01/02/2025 14:38:23 01/02/2025 15:21:43 Screening - NAD 256241067 Z13.9 Cologuard 03/30/2021 : +veC-scope 05/20/2021 : [...] ing of the above Low back pain 175089715 M54.50 Xray L Spine 02/16/2022 , Xray Hips: 02/16/2022 : Discussed with patient Did see Dr Ernandez, does not want to see him anymore Skin lesion 27886125 L98 .9 Dr Cortez 09/28/2021 Essential hypertension 29119298 I10 On amlodipine 5mg dailyDoes well Dr Baron 06/17/2023 Hyperlipidemia 77305952 E78.5 Not on pravastati nOn rosuvastat in 40mg daily, takes 1/2 tabletMore diet and exercise, does not want to take an increased dose, states has been eating a lot of sweets, understand s the risks for elevated lipidsDo labs Asthma 260664851 J45.90 9 Not on duleraOn airsupraDo es wellNo complaints now Seizure 78288356 R56.9 On phenytoin 100mg 3 caps daily Seizure free since age 13 years so for almost 60 years, reluctant to see neurology at this timeRenew as needed Liver enzy mes level above reference range 714150249 R74.01 S/p US liver 05/04/2021 S/p HIDA 06/12/2021 Dr Alvarado 09/29/2021 Visual impairment 300033 003 H54.7 Needs to get her eyes checked Refer to Dr Childress Osteopenia 146226288 M85 .80 Dr Whiting 09/06/2022 , 01/27/2023 Leukopenia 36550708 D72. 819 Get B12 and folate level, also refer to Dr Garber Keep apt with Dr Garber Vitamin D deficiency 347 97257 E55.9 Get labs Hypothyroidism 26471402 E03.9 On unithroid 25mcgs daily, not taking this, will get labsGet labs Screening mammography 24 208461 Z12.31 Upper resp iratory infection 11045199 J06.9 Her URI sx have resolved, and no diarrhea today, can to OTC imodium as needed, does not want any medMore fluidsER if worse [facility] of [facility] to Measles virus 9345318974 Z91.89 States that she would like to get tested for MMR, labs ordered Health Concerns Section Related Observation LastModified by Organization Detai ls LastModified Time None Recorded Concern Status LastModified by Organization Details LastModified Time None Recorded Advance Directives Directive Y: Payers Encounter Date Sequence Insurance Name Policy Number Policy Gross Covered Member ID Gross Member ID Guarantor Name 12/12/2023 1 [facility] (MEDICARE REPLACEMENT/A DVANTAGE - HMO) [id number] Bruna Chu Newlon [id number] Bruna Newlon 05/17/2024 1 [facility] (MEDICARE REPLACEMENT/A DVANTAGE - HMO) [id number] Bruna Chu Newlon [id number] Bruna Newlon 06/13/2024 1 [facility] (MEDICARE REPLACEMENT/A DVANTAGE - HMO) [id number] Bruna Chu Newlon [id number] Bruna Newlon 10/03/2024 1 [facility] (MEDICARE REPLACEMENT/A DVANTAGE - HMO) [id number] Bruna Chu Newlon [id number] Bruna Newlon 01/02/2025 1 [facility] (MEDICARE REPLACEMENT/A DVANTAGE - HMO) [id number] Bruna Chu Newlon [id number] Bruna Newn Notes Date Note Type Note Provider Name and Address Organization Details Recorded Time 12/12/2023 text/html OV 10/17/2020:Here to establish carePast Hx:HTNHLDSeizuresRe viewed social family and surgical historyShe feels wellNeeds her meds refilledNo recent labsOV 03/25/2021:Here for her routine aptShe did do the labsShe has done the mammogram and DEXA scanDoes Daniela would like to see a skiing teacher as she has a mole on the [...] do the labs Ang Florez MD [address] [facility], [place], [address], [facility] [employer] [facility] 12/12/2023 18:28:49 05/17/2024 text/html This patient reports that she has had vertigo since April 16. This is not positional but does worsened when she rolls over in bed. He had a similar episode 5 years ago. She believes that her hearing is okay. She had a CT angiogram which was normal. She agrees that this is probably the crystals. Sun Rush MD [address] [facility], [place], [address], [facility] [employer] [facility] 05/17/2024 12:18:30 06/13/2024 text/html OV 10/17/2020:Here to establish carePast Hx:HTNHLDSeizuresRe viewed social family and surgical historyShe feels wellNeeds her meds refilledNo recent labsOV 03/25/2021:Here for her routine aptShe did do the labsShe has done the mammogram and DEXA scanDoes Alecbaldomero would like to see a skiing teacher as she has a mole on the [...] the labs on 05/22/2024 Ang Florez MD [address] [place] [address], [facility] [address], [place], [address], [place] [facility] [place] [employer] 06/14/2024 19:26:59 10/03/2024 text/html OV 10/17/2020:Here to establish carePast Hx:HTNHLDSeizuresRe viewed social family and surgical historyShe feels wellNeeds her meds refilledNo recent labsOV 03/25/2021:Here for her routine aptShe did do the labsShe has done the mammogram and DEXA Renato Suarez would like to see a skiing teacher as she has a mole on the [...] labs for Dr Shirlene Florez MD [address] [facility], [facility] [address], [place], [address], [place] [facility] 10/05/2024 20:53:54 01/02/2025 text/html OV 10/17/2020:Here to establish carePast Hx:HTNHLDSeizuresRe viewed social family and surgical historyShe feels wellNeeds her meds refilledNo recent labsOV 03/25/2021:Here for her routine aptShe did do the labsShe has done the mammogram and DEXA scanDmariannas Alecbaldomero would like to see a skiing teacher as she has a mole on the [...] much improved today Ang Florez MD [address] [facility], [place], [address], [place] [facility] [employer] 01/02/2025 15:22:28 OBGyn Episode No OBEpisode recorded.
--- OUTSIDE RECORDS SUMMARY | 2025-03-08 14:51 | XMS_ITS | Encounter Summary ---
Author Organization [facility] Address [address] [place] [address] Care Team Providers Care Export Clerk Name Role Phone Ang Florez MD Primary Care Provider Encounter Details Date Type Department Care Team (Late st Contact Info) Description 03/07/2025 External Device Data [facility] [facility]STRACTION Provider, Abstract NO ADDRESS ON FILE Social History Tobacco Use Types Packs/Day Years Used Date Smoking Tobacco: Never Smokeless Tobacco: Never Alcohol Use Standard Drinks/Week Comments Never 0 (1 standard drink = 0.6 oz pur e alcohol) Comments No Sex and Gender Information Value Date Recorded Sex Assigned at Not on file Legal Sex Female 9:20 AM CDT Gender Identity Not on file Sexual Orientation Not on file documented as of this encounter Plan of Treatment Upcoming Encounters Date Type Department Care Team (Late st Contact Info) Description 07/16/2025 1:00 PM CDT Office Visit [facility] Oncology and Hematology - [place] [address] [facility] [address] [place] [address] Dereck Garber MD [address] [facility] [address] [place] [address] documented as of this encounter Visit Diagnoses Not on filedocumented in this encounter Care Teams Export Clerk Relationship Specialty Start Date End Date Ang Florez MD PCP - General Internal Medicine 08/07/24 documented as of this encounter
--- OUTSIDE RECORDS SUMMARY | 2025-03-08 14:51 | XMS_ITS | Continuity of Care Document ---
Author Organization [email or web address] Address [address] [place] [address] Phone Care Team Providers Care Tub Washer Name Role Phone Nora Fabian MD Unavailable [...] ASSESS Pt inelig neg scrn depres OFFICE [id number] BODY MASS INDEX DOCD SYST BP GE 130 - 139MM HG DIAST BP 80-89 MM HG CBC, INC PLATELETS AND DIFFERENTIAL COMPREHEN METABOLIC PANEL CMP 0 LIPID PANEL PARATHYROID HORMONE (PTH) VITAMIN D, 25-HYDROXY ROUTINE VENIPUNCTURE OFFICE VEAIN-MYJ-DLILUGGY BODY MASS INDEX DOCD SYST BP >= 140 MM HG6 IT DIAST BP 80-89 MM HG Admin influenza virus vac FLU VACC 4 GLYNN 0.5mL DOSAGE OFFICE [id number] BODY MASS INDEX DOCD SYST BP GE [...] Diagnoses Date Provider Providers Copied on Encounter [email or web address], [address], [place], [place], [address] , [place] tel: [phone] [facility] No Information 2 Rui Melendez. [address], [place], [place], [address] , [place]. tel: [phone] [email or web address], [address], [place], [place], [address] , [place] tel: [phone] [facility] No Information 0 Rui Melendez. [address], [facility] [address], [place], [place], [address] , . tel: [phone] [facility], [address], [place], [place], [address] , tel: [phone] [facility] No Information 0 Rui Melendez. [facility] [address], [address], [place], [place], [address] , . tel: [phone] [facility], [address], [place], [place], [address] , tel: [phone] [facility] No Information 0 Rui Melendez. [facility] [address], [facility] [address], [place], [place], [address] , . tel: [phone] OFFICE [id number] [facility], [address], [place], [place], [address] , tel: [phone] [facility] 6 mo fu (chief complaint) Body mass index (BMI) 30.0-30.9, adultEncntr screen mammogram for malignant neoplasm of breastGrand mal seizure disorderPure hypercholesterolemi a, unspecifiedEssentia l hypertensionVitamin D deficiency, unspecifiedMild intermittent asthma without complication 0 Rui Melendez. [address], [facility] [address], [place], [place], [address] , . tel: [phone] Referring Provider: Nora Fabian [address] [facility] [address], [place], [address] . tel:[phone] [facility], [address], [place], [place], [address] , tel: [phone] [facility] No Information 0 Rui Melendez. [address] [facility] [address], [place], [place], [address] , . tel: [phone] OFFICE [id number]-FGG-ED [facility], [address], [place], [place], [address] , tel: [phone] [facility] Routine cc- (chief complaint) Body mass index (BMI) 31.0-31.9, adultHyperparathyro idism , secondary, non-renalSenile purpuraVitamin D deficiency, unspecifiedGrand mal seizure disorderEssential hypertensionBenign paroxysmal positional vertigo of left earPure hypercholesterolemi a, unspecifiedMild intermittent asthma without complication 0 Rui Melendez. [address], [place], [place], [address] , . tel: [phone] Referring Provider: Rajat [address], [place], [address] . tel:[phone] [email or web address], [address], [place], [place], [address] , tel: [phone] [facility] Severe dizzinessGrand mal seizure disorder 0 Rui Melendez. [address], [place], [place], [address] , . tel: [phone] [email or web address], [address], [place], [place], [address] , tel: [phone] [facility] No Information 9 Rui Melendez. [address], [place], [place], [address] , . tel: [phone] Referring Provider: Rajat [address], [place], [address] . tel:[phone] [email or web address], [address], [place], [place], [address] , tel: [phone] [facility] No Information 9 Rui Melendez. [address], [place], [place], [address] , . tel: [phone] OFFICE [id number], [address], [place], [place], [address] , tel: [phone] [facility] 1 Month fup re BP (chief complaint) Essential hypertension 9 Rui Melendez. [address], [place], [place], [address] , . tel: [phone] Referring Provider: Rajat [address], [place], [address] . tel:[phone] [email or web address], [address], [place], [place], [address] , tel: [phone] [facility] Fup re dizziness (chief complaint) Benign paroxysmal positional vertigo of left earEssential hypertension 9 Rui Melendez. [address], [place], [place], [address] , . tel: [phone] Referring Provider: [address], [place], [address] . tel:[phone] [email or web address], [address], [place], [place], [address] , tel: [phone] [facility] Body mass index (BMI) 31.0-31.9, adultRoutine physical examinationGrand mal seizure disorderMild intermittent asthma without complicationEssenti al hypertensionHyperpa rathyroidism , secondary, non-renalSenile purpuraPure hypercholesterolemi a, unspecified 9 Rui Melendez. [address], [place], [place], [address] , . tel: [phone] Referring Provider: Rajat [address], [place], [address] . tel:[phone] [email or web address], [address], [place], [address] , [place] tel: [phone] [facility] No Information 8 Rui Melendez. [address], [place], [place], [address] , [place]. tel: [phone] Referring Provider: Rajat [address], [place], [address] . tel:[phone] [email or web address], [address], [place], [place], [address] , tel: [phone] [facility] Acute left-sided back pain with sciatica 0 8 Rui Melendez. [address], [place], [place], [address] , . tel: [phone] [facility], [address], [place], [place], [address] , tel: [phone] [facility] Acute left-sided back pain with sciatica 0 8 Rui Melendez. [address], [place], [place], [address] , . tel: [phone] Referring Provider: Rajat [address], [place], [address] . tel:[phone] [facility], [address], [place], [place], [address] , tel: [phone] [facility] Essential hypertension 2 8 Rui Melendez. [address], [place], [place], [address] , . tel: [phone] Referring Provider: Rajat [address], [place], [address] . tel:[phone] [facility], [address], [place], [address] , tel: [phone] [facility] Vitamin D deficiency, unspecified 3- 8 Rui Melendez. [address], [place], [place], [address] , . tel: [phone] Referring Provider: Rajat [address], [place], [address] . tel:[phone] [facility], [address], [place], [place], [address] , tel: [phone] [facility] Essential hypertensionHyperpa rathyroidism , secondary, non-renalVitamin D deficiency, unspecifiedPure hypercholesterolemi a, unspecifiedScreenin g for diabetes mellitusSenile purpuraGrand mal seizure disorderMild intermittent asthma without complication Dec-0 8-201 8 Rui Melendez. [address], [place], [place], [address] , . tel: [phone] Referring Provider: Rajat [address], [place], [address] . tel:[phone] [facility], [address], [place], [place], [address] , tel: [phone] [facility] No Information Rui Melendez. [address], [place], [place], [address] , . tel: [phone] Referring Provider: Rajat [address], [place], [address] . tel:[phone] [facility], [address], [place], [place], [address] , tel: [phone] [facility] Essential hypertensionSenile purpura Rui Melendez. [address], [place], [place], [address] , . tel: [phone] Referring Provider: Rajat [address], [place], [address] . tel:[phone] [facility], [address], [place], [place], [address] , tel: [phone] [facility] Pure hypercholesterolemi a, unspecifiedEssentia l hypertensionGrand mal seizure disorderEncounter for long-term (current) use of other medicationsDizzines sVitamin D deficiency, unspecifiedHyperpar athyroidism , secondary, non-renal Rui Melendez. [address], [place], [place], [address] , . tel: [phone] Referring Provider: Rajat [address], [place], [address] . tel:[phone] [facility], [address], [place], [place], [address] , tel: [phone] [facility] Pure hypercholesterolemi aEncounter for long-term (current) use of other medications 7 Rui Melendez. [address], [address], [place], [place], [address] , . tel: [phone] Referring Provider: Rajat [address], [place], [address] . tel:[phone] [email or web address], [address], [place], [place], [address] , tel: [phone] [facility] Pure hypercholesterolemi a, unspecifiedMild intermittent asthma without complicationOther petroleum terminal plant operator (current) drug therapyScreening for diabetes mellitusGrand mal seizure disorder 6 Rui Melendez. [address], [address], [place], [place], [address] , [place]. tel: [phone] Referring Provider: Rajat [address], [place], [address] . tel:[phone] [email or web address], [address], [place], [place], [address] , [place] tel: [phone] [facility] Nonintractable epilepsy without status epilepticus, unspecified epilepsy typeMild intermittent asthma without complicationPure hypercholesterolemi aEncounter for long-term (current) use of other medicationsEncounte r for immunization Jan- 6 Saman Dickinson. [address], [address], [place], [place], [address] . tel: [phone] Referring Provider: [address], [place], [address] . tel:[phone] [email or web address], [address], [place], [address] , [place] tel:[phone] [facility] External hemorrhoid [address] Saman Dickinson[address], [address], [place], [place], [address] . tel: [phone] Referring Provider: [address]at [address], [place], [address] . tel:[phone] [facility], [address], [place], [place], [address] , [place] tel: [phone] [facility] Cellulitis of arm, left Manfred- 5 Saman Dickinson. [address], [address], [place], [place], [address] . tel: [phone] Referring Provider: Alok Davison, [address], [place], [address] . tel:[phone] [facility], [address], [place], [place], [address] , tel: [phone] [facility] Pure hypercholesterolemi aGen cnv epil w/o intr epExtrinsic asthma, unspecified Dec-0 5 Saman Dickinson. [address], [address], [place], [place], [address] . tel: [phone] Referring Provider: Alok Davison, [address], [place], [address] . tel:[phone] [facility] [address], [place], [place], [address] , tel: [phone] [facility] Abnormal mammogram 5 Saman Dickinson[address], [address], [place], [place], [address] . tel: [phone] [facility] [address], [place], [place], [address] , tel: [phone] [facility] Otitis externa of right earImpacted cerumen of both ears 4 Saman Dickinson[address], [address], [place], [place], [address] . tel: [phone] Referring Provider: Rajat [address], [place], [address] . tel:[phone] [facility] [address], [place], [place], [address] , tel: [phone] [facility] No Information 4 Saman Dickinson. [address], [address], [place], [place], [address] . tel: [phone] [facility], [address], [place], [place], [address] , [place] tel: [phone] [facility] Extrinsic asthma, unspecified 4 Saman Dickinson. [address], [address], [place], [place], [address] . tel: [phone] Referring Provider: [address], [place], [address] . tel:[phone] [facility], [address], [place], [place], [address] , tel: [phone] [facility] PURE HYPERCHOLESTEROLEMG eneralized convulsive epilepsy, without mention of intractable epilepsyEXTRINSIC ASTHMA, UNSPECIFIEDLong-ter m (current) use of other medicationsPolyuria [address] Sam[address], [address], [place], [place], [address] . tel: [phone] Referring Provider: Rajat [address], [place], [address] . tel:[phone] [facility], [address], [place], [place], [address] , [place] tel: [phone] [facility] No Information 3 Saman Dickinson[address], [address], [place], [place], [address] . tel: [phone] [facility], [address], [place], [place], [address] , [place] tel: [phone] [facility] PURE HYPERCHOLESTEROLEMA bnormal CBC 3 Saman Dickinson[address], [address], [place], [place], [address] . tel: [phone] Referring Provider: [address]at [address], [place], [address] . tel:[phone] [facility], [address], [place], [place], [address] , [place] tel: [phone] [facility] Routine general medical examination at a health care facilityGeneralized convulsive epilepsy, without mention of intractable epilepsyPure hypercholesterolemi aEXTRINSIC ASTHMA, UNSPECIFIEDLong-ter m (current) use of other medications 3 Sam[address], [address], [place], [place], [address] . tel: [phone] Referring Provider: [address]at [address], [place], [address] . tel:[phone] [facility], [address], [place], [place], [address] , tel: [phone] [facility] Benign positional vertigoNausea [address] Sam[address], [address], [place], [place], [address] . tel: [phone] Referring Provider: [address], [place], [address] . tel:[phone] [email or web address], [address], [place], [place], [address] , tel: [phone] [facility] Long-term (current) use of other medications 1 Saman Dickinson[address], [address], [place], [place], [address] . tel: [phone] Referring Provider: Rajat [address] Dr Suite [facility], [place], [address] . tel:[phone] [email or web address], [address], [place], [place], [address] , tel: [phone] [facility] Long-term (current) use of other medicationsScreenin g for diabetes mellitus 1 Saman Dickinson[address], [address], [place], [place], [address] . tel: [phone] Referring Provider: [address], [place], [address] . tel:[phone] [email or web address], [address], [place], [place], [address] , tel: [phone] [facility] VACCIN FOR INFLUENZA 0 Saman Dickinson. [address], [address], [place], [place], [address] . tel: [phone] [facility], [address], [place], [place], [address] , [place] tel: [phone] [facility] LONG-TERM USE MEDS NECGEN CNV EPIL W/O INTR EPPURE HYPERCHOLESTEROLEME XTRINSIC ASTHMA NOS 0 Saman Dickinson. [address], [address], [place], [place], [address] . tel: [phone] [email or web address], [address], [place], [place], [address] , [place] tel: [phone] [facility] URINARY FREQUENCYPLANTAR WART 2201 0 Saman Dickinson. [address], [address], [place], [place], [address] . tel: [phone] [email or web address], [address], [place], [place], [address] , [place] tel: [phone] [facility] PLANTAR FIBROMATOSIS 0-200 9 Saman Dickinson. [address], [address], [place], [place], [address] . tel: [phone] [email or web address], [address], [place], [place], [address] , [place] tel: [phone] [facility] SCREEN MAL NEOP-RECTUM 9-200 9 Saman Dickinson. [address], [address], [place], [place], [address] . tel: [phone] [email or web address], [address], [place], [place], [address] , [place] tel: [phone] [facility] SCREEN-DIABETES MELLITUS 2-200 8 Saman Dickinson. [address], [address], [place], [place], [address] . tel: [phone] [email or web address], [address], [place], [place], [address] , tel: [phone] [facility] RESPIRATORY ABNORM NEC 7-200 8 Saman Dickinson. [address], [address], [place], [place], [address] . tel:[phone] [facility], [address], [place], [place], [address] , [place] tel: [phone] [facility] HYPERPOTASSEMIA 7200 7 Muchnick Alok. [address], [address], [place], [place], [address] . tel: [phone] [facility], [address], [place], [place], [address] , [place] tel: [phone] [facility] No Information 5200 7 Saman Dikcinson. [address], [address], [place], [place], [address] . tel: [phone] [facility], [address], [place], [place], [address] , [place] tel: [phone] [facility] FAM HX-DIABETES MELLITUS 5 Saman Dickinson. [address], [address], [place], [place], [address] . tel: [phone] [email or web address], [address], [place], [place], [address] , [place] tel:[phone] [facility] FOREIGN BODY FOOT & TOE 6 4 Maldonado Warren. [address], [address], [place], [place], [address] . tel: [phone] [email or web address], [address], [place], [place], [address] , [place] tel: [phone] [facility] PAIN IN LIMB 200 3 Saman Dickinson. [address], [address], [place], [place], [address] . tel: [phone] [email or web address], [address], [place], [place], [address] , [place] tel:[phone] [facility] SYMPT FEM CLIMACT STATE 1200 2 Saman Dickinson. [address], [address], [place], [place], [address] . tel: [phone] [facility], [address], [place], [place], [address] , tel: [phone] [facility] CELLULITIS NOS Sep- 1-200 1 Saman Dickinson. [address], [address], [place], [place], [address] . tel: [phone] [facility], [address], [place], [place], [address] , tel: [phone] [facility] BURN NOSVACCINATION FOR TD-DT Sep- 1-200 0 Saman Dickinson. [facility] [address], [address], [place], [place], [address] . tel: [phone] [facility], [address], [place], [place], [address] , tel: [phone] [facility] ALLERGY, UNSPECIFIED 5-200 0 Saman Dickinson. [facility] [address], [address], [place], [place], [address] . tel: [phone] [facility], [address], [place], [place], [address] , tel: [phone] [facility] GANGLION NOS February- 0-200 0 Saman Dickinson. [address] [place] [address] , [address], [place], [place], [address] . tel: [phone] Family History Family Member Type Diagnosis Age At Onset Family h/o Problem (finding) DIABETES MELLITUS Immunizations Vaccine Date Status Comments Fluzone Quad, split virus, 0.5mL dosage administered Source: New Immuniza tion Record Tdap administered Source: New Imm unization Record Fluzone Quad, split virus, 0.5mL dosage administered Source: New Immuniza tion Record Pneumococcal polysaccharide PPV23 administered Source: New Immuniza tion Record Fluzone Quad 7158-0011, spli t virus, 0.5mL dosage administered Source: New Immuniza tion Record Pneumococcal conjugate PCV 13 administere d Source: New Immunization Record influenza, injectable, quadrivalent, (3 years or older) administered Source: New Immuniza tion Record Tdap administered Source: New Imm unization Record Influenza, seasonal, injecta ble (3 yrs or older) administered Note: roxanne ; Source: Source Unspecified 35159 - Influenza administered Source: Kalie lazaro Unspecified 07733 - TD administered Source: Source Unspecified Payers Payer name Insurance type Covered alliance party ID Authoriza tion(s) [employer] MB [id number] [employer] MB [id number] [employer] MB [id number] [employer] MB [id number] [employer] MB [id number] [employer] MB [id number] [employer] MB [id number] [employer] MB [id number] [employer] MB [id number] [employer] MB [id number] Social History Type Description Quantity Date Captured [...] guidance, and counseling completed Referral Referred To: [id number] [place], [place], [id number] Ordered: SCREENING MAMMOGRAM (CAD) Bilateral breast ordered Referral Ordered: MRI of brain without contrast ordered Patient Education Sciatica: Exercises com pleted Patient Education Sciatica: Care Instruct ions completed Patient Education Low Back Pain: Exercise s completed Future Order: Lab Order Phenytoi n (Dilantin) Level ([id number]), Collected on: , Sent on: Sent History [...]
--- OUTSIDE RECORDS SUMMARY | 2025-03-08 14:51 | XMS_ITS | CONTINUITY OF CARE DOCUMENT ---
Author Name caprice, cherriediego Address Unknown Organization [facility] Address [address] [place] [address] Phone [phone] Care Team Providers Care Cut Plug Packer Name Role Phone Slava Baron MD Unavailable KOMAL LEIGH MD Unavailable [phone] KOMAL LEIGH MD Unavailable [phone] PROBLEMS Condition Status Date Provider Notes Cardiology examination active Slava Baron MD HTN essential active Slava Baron MD Shortness of breath active Slava Baron MD Hyperlipidemia active Slava Baron MD ENCOUNTERS Date Type Provider Location Encounter Diag nosis - In-person encounter Office Visit Slava Baron MD [facility] - In-person encounter Office Visit Slava Baron MD [facility] - In-person encounter Office Visit Slava Baron MD [facility] Cardiology examinationHTN essentialShortness of breathHyperlipidemia VITAL SIGNS Date Observation Value Provider Body Mass Index (Ratio) 27.12 kg/m2 Main Baron MD blood pressure, diastolic 80 mm[Hg] Chelsea marksLogkrys blood pressure, systolic 154 mm[Hg] Mere Watson pulse rate 68 /min Alise Estrada blood pressure, cuff size regular Michael carlson Estrada blood pressure, diastolic 80 mm[Hg] Michael carlson Estrada blood pressure, systolic 154 mm[Hg] Todd torres Estrada oxygen saturation, oximetry 94 % Alise [place] respiratory rate E&M 12 /min Alise [place] weight E&M 163 [lb_av] Alise [place] height E&M 65 [in_i] Alise [place] Body Mass Index (Ratio) 29.78 kg/m2 Main Baron MD blood pressure, cuff size regular [facility] blood pressure, diastolic 80 mm[Hg] Isiah [facility] blood pressure, systolic 148 mm[Hg] [facility] pulse rate 64 /min Patrick oxygen saturation, oximetry 95 % [facility] respiratory rate E&M 12 /min Patrick weight E&M 179 [lb_av] Patrick height E&M 65 [in_i] [facility] y Body Mass Index (Ratio) 28.95 kg/m2 Main Baron MD blood pressure, diastolic -1 mm[Hg] Chelsea nkLogkrys blood pressure, systolic 144 mm[Hg] Mere [facility] blood pressure, diastolic -1 mm[Hg] Chelsea marksLogkrys blood pressure, systolic 144 mm[Hg] Mere Felizogkrys blood pressure, diastolic 84 mm[Hg] kailee Islas blood pressure, systolic 144 mm[Hg] [facility] jayleen Islas oxygen saturation, oximetry 98 % [...] Payer name Policy type / Coverage type [place] red republican ID AARP MEDICARE ADVANTAGE HMO-POS HMO [id number] ADVANCE DIRECTIVES Name Date DISCUSSED - NO DECISION MADE TREATMENT PLAN Date Name Performer [id number],C, B P today: 148/80 P rior BP: 144/-1 (06/17/2023) Slava Baron MD [id number],C,not on a stat in Slava Baron MD [id number],C,H er echo was unremarkable with no significant valvular abnormalities. I will check her PFTs and a 6 minute walk test. Slava Baron MD [id number],C,WIll evaluate with echo Slava Baron MD [id number],C, B P today: 144/84 Slava Baron MD [...] Slava Baron MD Date Name DLCO - 63820 FRC - 36290 FVC - 12207 6 minute walk test Complete Echo HISTORY OF PROCEDURES Procedure Date Procedure Name Provider Procedure Notes S tatus Complex e/m visit add on Slava Baron MD completed EKG Slava Baron MD completed FVC / MVV with bronchodilator - 30790 Slava Baron MD completed BLOOD COUNT HEMOGLOBIN Slava Baron MD completed FRC - 33648 Slava Baron MD complete d SpO2 w/o 6min walk/titration Slava Baron MD completed DLCO - 64815 Slava Baron MD complet ed 6 minute walk test Slava Baron MD c ompleted EKG Slava Baron MD completed
--- OUTSIDE RECORDS SUMMARY | 2025-03-08 14:51 | XMS_ITS | Encounter Summary ---
Author Organization [facility] Address [address] [place] [address] Care Team Providers Care Varnishing Machine Operator Name Role Phone Ang Florez MD Primary Care Provider Encounter Details Date Type Department Care Team (Late st Contact Info) Description 03/06/2025 External Device Data STL ABSTRACTION Provider, [...] Description 07/16/2025 1:00 PM CDT Office Visit [facility] Oncology and Hematology - [place] [address] [place] [address] Dereck Garber MD [address] [place] [address] documented as of this encounter Visit Diagnoses Not on filedocumented in this encounter Care Teams Varnishing Machine Operator Relationship Specialty Start Date End Date Ang Florez MD PCP - General Internal Medicine 08/07/24 documented as of this encounter
== END 2025-03-08 14:48 | disposition home or self-care (01) ==
LOC: ANHIMG 14:49
PROVIDERS: PCP Internal Medicine; Visit Provider Obstetrics & Gynecology
DX: Z12.31 Encounter for screening mammogram for malignant neoplasm of breast (principal)
CPT/HCPCS: 77063; 77067

== ENCOUNTER 2025-05-18 10:44 | Emergency (ER) | payer MEDICARE, SELFPAY ==
--- NOTE | ~2025-05-18 | XR_ITS ---
EXAMINATION: XR abdomen/kub 1V DATE: 05/18/2025 11:29 INDICATION: 4 days of constipation TECHNIQUE: A supine view of the abdomen on 2 radiographs was obtained. COMPARISON: None. FINDINGS: Moderate amount of stool and small amount of gas scattered throughout the colon. Additional small kilo unt of gas scattered throughout nondilated loops of small bowel. Small phlebolith in the right hemipe lvis. No other suspicious calcifications in the abdomen or pelvis. Minimal thoracolumbar levocurvatur e with moderate to severe lower lumbar spondylosis. Visualized lung bases are clear. IMPRESSION: 1. Nonspecific nonobstructive bowel gas pattern with moderate amount of colonic stool. Reviewed, dictated and finalized at location A.
[2025-05-18 10:52] VITALS: BP 141/87; PULSE 74; RESP 16; TEMP 36.3; O2SAT 100
--- NOTE | 2025-05-18 11:23 | ED.GENADULT ---
HPI - General Adult General Chief complaint: Abdominal Pain Stated complaint: Bowel Problems Time Seen by Provider: 05/18/25 11:14 Source: patient and RN notes reviewed Mode of arrival: ambulatory Limitations: no limitations History of Present Illness HPI narrative: Patient presents today complaining of 3-4 day history of constipation. States she has been straining while sitting on the stool without passing any stool. She does report intermittent lower abdominal discomfort as well, but none currently. She has tried a dose of ExLax and a dose of stool softener without improvement. Patient typically has 1 bowel movement per day. She had been taking MiraLax daily for over a year, but stopped 1 month ago as she states it stopped working. Related Data Home Medications ?Medication ?Instructions ?Recorded ?Confirmed ?Last Taken ?Type amlodipine 5 mg tablet 5 mg PO DAILY 05/11/22 05/18/25 Unknown History phenytoin sodium extended 100 mg 100 mg PO TID 05/11/22 05/18/25 Unknown History capsule rosuvastatin 40 mg tablet 40 mg PO DAILY 05/17/23 05/18/25 Unknown History albuterol 90 mcg-budesonide 80 inh inhalation 05/18/25 Unknown History mcg/actuation HFA aerosol inhaler (Airsupra) cholecalciferol (vitamin D3) 1,250 05/18/25 Unknown History mcg (50,000 unit) capsule vitamin X48-offlh acid 05/18/25 Unknown History Allergies Allergy/AdvReac Type Severity Reaction Status Date / Time No Known Allergies Allergy Verified 05/18/25 10:46 [facility] Past Medical History Medical History Screening mammogram, encounter for Seizures Hypertension High cholesterol Surgical History Surgical History History of left breast biopsy History of hysterectomy (~1993) History of gastrointestinal surgery repair of abdominal fistula Social History Social History Smoking status: Never smoker Alcohol intake: never Substance use: never Substance use type: does not use Lack of Transportation: No Lack of Food: Never True Current Housing: I Have Housing Concerned About Future Housing: No Difficulty Paying Gas/Electric Bills: No Difficulty Paying for Meds: No Currently Unemployed: No Education: Trade/Vocational Certificate Difficulty w/ Childcare or Family Care: No Living arrangements: alone Additional living arrangements comments: Occupation/Education: retired Gender identity (if verbalized by the patient): Female Sexual Orientation (if Verbalized by the Patient): Straight or Heterosexual Comments At time of signature, I have reviewed and agree with nursing past medical, surgical, social and family history unless otherwise noted. Please see nursing chart for further information. There is no relevant family history pertinent to the presenting complaint Exam Narrative: GENERAL: Well-appearing, well-nourished, and in no acute distress. HEAD: Normocephalic, atraumatic. EYES: EOMI. No redness or drainage. Conjunctivae normal. ENT: Mucous membranes pink and moist. NECK: Normal AROM. CHEST: No respiratory distress. Clear to auscultation. HEART: Regular rate and rhythm. No murmur appreciated. ABDOMEN: Soft, nontender, nondistended, normal active bowel sounds. EXTREMITIES: Normal range of motion. No edema. SKIN: Warm, dry, no rash. Capillary refill normal. Normal skin turgor. NEURO: No focal deficits. Alert and oriented x3. Gait steady. PSYCH: Normal affect. No signs of depression or anxiety. Course Course Level of Care: Express Care Visit Vital Signs Vital signs: Vital Signs Temperature 97.4 F L 05/18/25 10:52 Pulse Rate 74 05/18/25 10:52 Respiratory Rate 16 05/18/25 10:52 Blood Pressure 141/87 H 05/18/25 10:52 Pulse Oximetry 100 05/18/25 10:52 Temperature 97.4 F L 05/18/25 10:52 Pulse Rate 74 05/18/25 10:52 Respiratory Rate 16 05/18/25 10:52 Blood Pressure 141/87 H 05/18/25 10:52 Pulse Oximetry 100 05/18/25 10:52 Reviewed Medical Decision Making MDM Narrative Medical decision making narrative: 74-year-old female patient presents today complaining of constipation x4 days. Patient has tried a stimulant laxative and stool softener without improvement. She also reports some lower abdominal pressure. X-ray shows moderate amount of stool with nonobstructive bowel gas pattern. Printed out info page on UptoDate for OTC medication options for patient to use for her constipation. Recommended restarting on MiraLax and drinking plenty of water. Vital signs stable. Anticipatory guidance given. Differential Diagnosis Differential Diagnosis: Constipation, bowel obstruction Vital Signs Vital Signs: Vital Signs Temperature 97.4 F L 05/18/25 10:52 Pulse Rate 74 05/18/25 10:52 Respiratory Rate 16 05/18/25 10:52 Blood Pressure 141/87 H 05/18/25 10:52 Pulse Oximetry 100 05/18/25 10:52 Temperature 97.4 F L 05/18/25 10:52 Pulse Rate 74 05/18/25 10:52 Respiratory Rate 16 05/18/25 10:52 Blood Pressure 141/87 H 05/18/25 10:52 Pulse Oximetry 100 05/18/25 10:52 Imaging Data Radiologist's impression: ITS Impressions Abdomen X-Ray 05/18/25 11:40 IMPRESSION: 1. Nonspecific nonobstructive bowel gas pattern with moderate amount of colonic stool. Critical Care Time Critical Care Time Critical Care Time: No Discharge Plan Discharge Clinical Impression: Constipation Qualifiers: Constipation type: unspecified constipation type Qualified Code(s): K59.00 - Constipation, unspecified Patient Disposition: Home Condition: Stable Instructions: Constipation (DC) Additional Instructions: Your x-ray shows a moderate amount of stool in your colon consistent with constipation, and does not show a bowel blockage. Recommend to restart MiraLax and possibly also stool softener. This may take a few days to start working. Make sure you are drinking plenty of fluids. Follow-up with your PCP next week if symptoms are not improving. Your blood pressure was elevated above 120/80 today at Urgent Care. This puts you above the threshold for follow up. Please schedule a followup visit with your personal physician as soon as possible, for further evaluation and treatment. Even blood pressure exceeding 120/80 may indicate pre-hypertension. Patient Language: Wallisian Prescriptions: No Action Airsupra 90-80 mcg/actuation HFA aerosol inhaler INHALATION cholecalciferol (vitamin D3) 1,250 mcg (50,000 unit) capsule vitamin B03-[id number] acid amlodipine 5 mg tablet 5 mg PO DAILY phenytoin sodium extended 100 mg capsule 100 mg PO TID rosuvastatin 40 mg tablet 40 mg PO DAILY Follow-up/Referrals: PHYSICIAN,SMALL PACKAGE AND BUNDLE SORTER CLERK [Primary Care Provider] - Time of Disposition: 12:05
== END 2025-05-18 12:14 | disposition home or self-care (01) ==
PROVIDERS: Emergency Provider Nurse Practitioner
DX: K59.00 Constipation, unspecified (principal); G40.909 Epilepsy, unspecified, not intractable, without status epilepticus; I10 Essential (primary) hypertension; E78.00 Pure hypercholesterolemia, unspecified
CPT/HCPCS: 74018; 99213; G0463

== ENCOUNTER 2025-07-15 09:16 | Outpatient (CLI) | payer MEDICARE, SELFPAY ==
[2025-07-15 09:33] LABS: Hematocrit 39.4 % (37.0-47.0); Hemoglobin 12.3 g/dL (12.0-15.0); Mean Corpuscular HGB Conc 31.2 g/dl (32-36); Mean Corpuscular Hemoglobin 29.9 pg (26-34); Mean Corpuscular Volume 95.9 fl (80-100); Platelet Count Result 192 k/mm3 (150-375); Red Blood Count 4.11 M/mm3 (4.2-5.4); White Blood Count 4.1 K/mm3 (4.5-10.0)
--- OUTSIDE RECORDS SUMMARY | 2025-07-15 09:44 | XMS_ITS | Clinical Summary ---
Author Organization [facility] Address [address] [address] [place] [address] Phone Care Team Providers Care Senior Mortgage Underwriter Name Role Phone Ang Florez MD Primary [...] Encounters Date Type Department Care Team Description 07/15/2025 Telephone [facility] Oncology and Hematology - [place] [address] [place] [address] Dereck Garber MD labs for appt 07/09/2025 External Device Data STL ABSTRACTION Provider, Abstract 07/02/2025 External Device Data STL ABSTRACTION Provider, Abstract 05/01/2025 External Device Data STL ABSTRACTION Provider, Abstract 04/30/2025 External Device Data STL ABSTRACTION Provider, Abstract [...] 11:35 AM CDT Height 160 cm (5' 3) 08/07/2024 1:42 PM CDT Body Mass Index 28.41 08/07/2024 1:42 PM CDT Plan of Treatment Upcoming Encounters Date Type Department Care Team (Late st Contact Info) Description 07/16/2025 1:00 PM CDT Office Visit [facility] Oncology and Hematology - [place] [address] [facility] [address] [place] [address] Dereck Garber MD [address] [facility] [place] [address] Health Maintenance Due Date Last Done Comments DTAP/TDAP/TD VACCINES (1 - Tdap) 1967 RSV VACCINE (60+ or ) (1 - 1-dose 75+ series) 2023 Medicare Advantage ([place]) Prev entative Visit/Annual Wellness Visit 10/17/2024 10/03/2024, 06/13/2023 INFLUENZA VACCINE (#1) 2025 , 07/22/2021, 08/18/2020 OSTEOPOROSIS SCREENING 06/16/2028 06/16/2023 PNEUMOCOCCAL VACCINE 50+ YEARS Completed 12/15/2017 , 09/16/2016 ZOSTER VACCINE Completed 08/09/2023, 06/13/2023 Insurance [facility] Address: [address] [place] [address] [facility] [id number] Care Teams Senior Mortgage Underwriter Relationship Specialty Start Date End Date Ang Florez MD PCP - General Internal Medicine 08/07/24
--- OUTSIDE RECORDS SUMMARY | 2025-07-15 09:44 | XMS_ITS | Clinical Summary ---
Author Organization [facility] [address] [facility] lto Address [address] [place] [address] Care Team Providers Care Accounting Technician Name Role Phone Janina Florez MD Primary Care Provide r Allergies No known active allergies Medications amLODIPine (NORVASC) 5 mg tablet Take 1 tablet (5 mg total) by mouth daily Active Unithroid 25 mcg tablet Take 1 tablet (25 mcg total) by mouth manager client service before breakfast Active meclizine (ANTIVERT) 25 mg tablet Take 0.5 tablets (12.5 mg total) by mouth 3 (three) times a day as needed 4 Active mometasone-form oterol (DULERA 100) 100-5 mcg/actuation inhaler Inhale 1 puff 2 (two) times a day Active phenytoin ER (DILANTIN) 100 mg ER capsule Take 1 capsule (100 mg total) by mouth daily Active rosuvastatin (CRESTOR) 20 mg tablet Take 1 tablet (20 mg total) by mouth daily 5 Active Active Problems No known active problems Social History Tobacco Use Types Packs/Day Years Used Date Smoking Tobacco: Never Assessed Comments Unknown Sex and Gender Information Value Date Recorded Sex Assigned at Not on file Legal Sex Female 9:46 AM CDT Gender Identity Not on file Sexual Orientation Not on file Obstetrics History Last Filed Vital Signs Vital Sign Reading Time Taken Comments Blood Pressure 132/82 02/27/2025 2:11 PM CDT Pulse 88 02/27/2025 2:11 PM CDT Temperature 37 C (98.6 F) 02/27/2025 2:11 PM CDT Respiratory Rate 17 02/27/2025 2:11 PM CDT Oxygen Saturation 98% 02/27/2025 2:11 PM CDT Inhaled Oxygen Concentration - - Weight 74.8 kg (165 lb) 02/27/2025 2:11 PM CDT Height 160 cm (5' 3) 02/27/2025 2:11 PM CDT Body Mass Index 29.23 02/27/2025 2:11 PM CDT Plan of Treatment Health Maintenance Due Date Last Done Comments Depression Screening 1948 Fall Risk Assessment 1950 Hepatitis C Screening 1950 DTaP/Tdap/Td Vaccine (1 - Tdap) 1959 Hepatitis B Screening 1966 Well Visit 65+ 2013 Osteoporosis Screening-Bone Density Scan 06/16/2025 06/16/2023 Covid-19 Vaccine (6 - 2024-2 6 season) 2025 09/01/2022, 09/24/2021, 09/08/2021, Additional history exists Influenza Vaccine (#1) 2025 2, 07/22/2021, 09/04/2020, Additional history exists Pneumococcal vaccine 65+ Completed 12/15/2017, 10/2015 Breast Cancer Screening-Mammogram Discontinued 019, 01/27/2019 Zoster Vaccine Completed 08/09/2023, 06/13/2023 Insurance [facility] MEDICARE ADVANTAGE [facility] Address: [facility] [address] [place] [address] Care Teams Accounting Technician Relationship Specialty Start Date End Date Janina Florez MD [address] [address] PCP - General Internal Medicine 02/27/25
--- OUTSIDE RECORDS SUMMARY | 2025-07-15 09:45 | XMS_ITS | Encounter Summary ---
Author Organization [facility] Address [address] [place] [address] Care Team Providers Care Bike Mechanic Name Role Phone Ang Florez MD Primary Care Provider Reason for Visit * Reason Onset Date Comments labs for appt 07/15/2025 Encounter Details Date Type Department Care Team (Late st Contact Info) Description 07/15/2025 Telephone [facility] Oncology and Hematology - [place] [address] [facility] [address] [place] [address] Dereck Garber MD [address] [facility] [address] [place] [address] labs for appt Social History Tobacco Use Types Packs/Day Years [...] on file documented as of this encounter Miscellaneous Notes * Telephone Encounter - Indira Stewart - 07/15/2025 9:04 AM CDT LVM for patient regarding her labs for her appointment. I don't see that she got her labs done. Shewill need those done today for her visit tomorrow. documented in this encounter Plan of Treatment Upcoming Encounters Date Type Department Care Team (Late st Contact Info) Description 07/16/2025 1:00 PM CDT Office Visit [facility] Oncology and Hematology - [place] [address] [facility] [address] [place] [address] Dereck Garber MD [address] [facility] [address] [place] [address] documented as of this encounter Visit Diagnoses Not on filedocumented in this encounter Care Teams Bike Mechanic Relationship Specialty Start Date End Date Ang Florez MD PCP - General Internal Medicine 08/07/24 documented as of this encounter
[2025-07-15 11:30] LABS: Anion Gap 5 mmol/L (4-12); Blood Urea Nitrogen 17 mg/dL (7-17); Calcium 9.3 mg/dL (8.4-10.2); Carbon Dioxide 30 mmol/L (22-30); Chloride 102 mmol/L (98-107); Estimated Glomerular Filt Rate > 60; Glucose 99 mg/dL (65-110); Potassium 5.6 mmol/L (3.4-5.0); Sodium 137 mmol/L (137-145)
[2025-07-15 12:48] LABS: Vitamin B12 > 1000.0 pg/mL (239-931)
== END 2025-07-15 09:17 | disposition home or self-care (01) ==
LOC: ANHLAB 09:17
PROVIDERS: PCP Internal Medicine; Visit Provider Internal Medicine Hematology & Oncology
DX: D64.9 Anemia, unspecified (principal)
CPT/HCPCS: 36415; 80048; 82607; 82746; 85027

== ENCOUNTER 2025-10-03 12:25 | Outpatient (CLI) | payer MEDICARE, SELFPAY ==
--- NOTE | ~2025-10-03 | US_ITS ---
EXAMINATION: US venous doppler [facility], 10/03/2025 12:57 FRAMER HISTORY: pain in both legs COMPARISON: None Technique: Oropeza-scale and color Doppler images were attempted of the lower saphenofemoral junction, common femoral vein,superficial femoral vein, proximal deep femoral vein, proximal deep femoral vein, popliteal vein and posterior tibial veins. Findings: Deep Venous System:Normal flow, augmentation and compressibility. No echogenic thrombus identified. Superficial Venous SystemNo superficial thrombophlebitis. Soft tissues: Soft tissues are unremarkable. Impression: Negative for DVT. Reviewed, dictated and finalized at location P. ER Impression: Negative for DVT.
--- NOTE | ~2025-10-03 | XR_ITS ---
XR lumbar spine 2-3V Indication: low back pain, unspecified Comparison: None Findings: The vertebral heights are intact. No fracture or subluxation. Moderate to severe loss of disc height throughout Soft tissues unremarkable Impression: No acute abnormality. Reviewed, dictated and finalized at location P. IVING WORKER Impression: No acute abnormality.
--- OUTSIDE RECORDS SUMMARY | 2025-10-03 13:24 | XMS_ITS | Patient Health Record ---
Author Organization [facility] Address [address] [place] [address] Care Team Providers Care Ornamental Metal Erector Name Role Phone Ang Florez Primary Care Provider Rasheeda mesa Oma, Ryley Unavailable [phone] Allergies No Known Allergies Reason For Referral No Information Medications Medication SIG (Take, Route, Fr equency, Duration) Notes Start Date End Date Status Meloxicam 15 MG Tablet 1 tablet Orally O nce a day; Duration: 90 days 04/26/2022 Active amLODIPine Besylate Active Pravastatin Sodium A ctive Dulera Active Phenytoin Active Social History Section Notes: She is a nonsmoker. She does not drink. She denies history of drug or chemical abuse. She does not use a cane or walker to ambulate. She is a . She does not live at home with someone who can help her. She achieved 2 years of college and medical records school. She is retired since 2017. She rates her general state of health as good. She is a non-smoker. She does not drink alcohol. She denies h/o drug/chemical abuse. She does not use a cane/walker to ambulate. She is a . She does not live at home with someone who can help her. She has achieved 2 years of college and medical records school. She has been retired since 2017. She rates her general state of health as good. She is a non-smoker. She does not drink alcohol. She denies h/o drug/chemical abuse. She does not use a cane/walker to ambulate. She is a . She does not live at home with someone who can help her. She has achieved 2 years of college and medical records school. She has been retired since 2017. She rates her general state of health as good. 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 confirmed Problem Scoliosis (516303096) Scoliosis (M41.9) Active confirmed Problem Osteoporosis (49695701) Osteoporosis (M81.0) Active confirmed Problem Degenerative disc disease (64538551) DDD (degenerative disc disease), lumbar (M51.36) Active confirmed Plan Of Treatment No Information Insurance Providers Payer Name Payer Address Payer Phone Subscriber Number Group Number Insured Name Patient Relationship to Insured Coverage Start Date Coverage End Date [facility] Medicare Complete (Need Referral) [address] [address] [place] [address] [id number] Jordyn Bruna Self - patient is the insured Medical (General) History Medical History History ICD Code Hypertension Hypercholesterolemia Asthma Seizures - Epilepsy Constipation Arthritis Back pain Denies h/o emotional/psychiatric disorde r Denies h/o drug/chemical dependency Surgical History Surgery Date(Month/Year) Fistulectomy 1958 Band aid surgery 1976 Hysterectomy 1990
--- OUTSIDE RECORDS SUMMARY | 2025-10-03 13:24 | XMS_ITS | Encounter Summary ---
Author Organization [facility] Address [address] [place] [address] Care Team Providers Care Shellfish Sorter Name Role Phone Ang Florez MD Primary Care Provider Encounter Details Date Type Department Care Team (Late st Contact Info) Description 10/01/2025 External Device Data STL ABSTRACTION Provider, Abstract [...] Care Team (Late st Contact Info) Description 04/15/2026 1:00 PM CDT Office Visit [facility] Oncology and Hematology - [place] [address] [facility] [address] [place] [address] Dereck Garber MD [address] [facility] [address] [place] [address] documented as of this encounter Visit Diagnoses Not on filedocumented in this encounter Care Teams Shellfish Sorter Relationship Specialty Start Date End Date Ang Florez MD PCP - General Internal Medicine 08/07/24 documented as of this encounter
--- OUTSIDE RECORDS SUMMARY | 2025-10-03 13:24 | XMS_ITS | Encounter Summary ---
Author Organization [facility] Address [address] [place] [address] Care Team Providers Care Secure Software Assessor Name Role Phone Ang Florez MD Primary [...] Description 04/15/2026 1:00 PM CDT Office Visit [facility] Oncology and Hematology - [place] [address] [facility] [address] [place] [address] Dereck Garber MD [address] [facility] [address] [place] [address] documented as of this encounter Visit Diagnoses Not on filedocumented in this encounter Care Teams Secure Software Assessor Relationship Specialty Start Date End Date Ang Florez MD PCP - General Internal Medicine 08/07/24 documented as of this encounter
--- OUTSIDE RECORDS SUMMARY | 2025-10-03 13:24 | XMS_ITS | Clinical Summary ---
Author Organization [facility] [address] [facility] lto Address [address] [place] [address] Care Team Providers Care Offal Roller Name Role Phone Janina Florez MD Primary Care Provide r Allergies No known active allergies Medications amLODIPine (NORVASC) 5 mg tablet Take 1 tablet (5 mg total) by mouth daily Active Unithroid 25 mcg tablet Take 1 tablet (25 mcg total) by mouth lieutenant fire fighter before breakfast Active meclizine (ANTIVERT) 25 mg [...] Density Scan 06/16/2025 06/16/2023 Covid-19 Vaccine (6 2024-2 6 season) 2025 09/01/2022, 09/24/2021, 09/08/2021, Additional history exists Influenza Vaccine (#1) 2025 2, 07/22/2021, 09/04/2020, Additional history exists Pneumococcal vaccine 65+ Completed 12/15/2017, 10/2015 Breast Cancer Screening-Mammogram Discontinued 019, 01/27/2019 Zoster Vaccine Completed 08/09/2023, 06/13/2023 Insurance [facility] MEDIC[facility] Address: [facility] [address] [place] [address] Care Teams Offal Roller Relationship Specialty Start Date End Date Janina Florez MD [address] [address] PCP - General Internal Medicine 02/27/25
--- OUTSIDE RECORDS SUMMARY | 2025-10-03 13:24 | XMS_ITS | Encounter Summary ---
Author Organization [facility] Address [address] [place] [address] Care Team Providers Care Vegetable Worker Name Role Phone Ang Florez MD Primary [...] [facility] - [place] [address] [facility] [address] [place] [address] Dereck Garber MD [address] [facility] [address] [place] [address] documented as of this encounter Visit Diagnoses Not on filedocumented in this encounter Care Teams Vegetable Worker Relationship Specialty Start Date End Date Ang Florez MD PCP - General Internal Medicine 08/07/24 documented as of this encounter
--- OUTSIDE RECORDS SUMMARY | 2025-10-03 13:24 | XMS_ITS | Clinical Summary ---
Author Organization [facility] Address [address] [address] [place] [phone] Phone Care Team Providers Care Bridge Contractor Name Role Phone Ang Florez MD Primary [...] Encounters Date Type Department Care Team Description 10/01/2025 External Device Data [facility] Provider, Abstract 10/01/2025 External Device Data [facility] Provider, Abstract 10/01/2025 External Device Data [facility] Provider, Abstract 08/07/2025 External Device Data [facility] Provider, Abstract 08/06/2025 External Device Data [facility] Provider, Abstract 07/16/2025 1:00 PM CDT Office Visit [facility] and Hematology [facility] [address] [place] [address] Dereck Garber MD Chronic anemia (Primary Dx) 07/16/2025 Orders Only [facility] - [place] [address] [place] [address] Dereck Garber MD 07/15/2025 Telephone [facility] Oncology and Hematology [facility] [address] [place] [address] Dereck Garber MD labs for [...] Sign Reading Time Taken Comments Blood Pressure 136/70 07/16/2025 1:26 PM CDT Pulse 62 07/16/2025 1:20 PM CDT Temperature 36.5 C (97.7 F) 07/16/2025 1:20 PM CDT Respiratory Rate 15 07/16/2025 1:20 PM CDT Oxygen Saturation 98% 07/16/2025 1:20 PM CDT Inhaled Oxygen Concentration - - Weight 73.9 kg (163 lb) 07/16/2025 1:20 PM CDT Height 160 cm (5' 3) 08/07/2024 1:42 PM CDT Body Mass Index 28.87 08/07/2024 1:42 PM CDT Plan of Treatment Upcoming Encounters Date Type Department Care Team (Late st Contact Info) Description 04/15/2026 1:00 PM CDT Office Visit [facility] Oncology and Hematology - [place] [address] [place] [address] Dereck Garber MD [address] [facility] [address] [place] [address] Health Maintenance Due Date Last Done Comments DTAP/TDAP/TD VACCINES (1 - Tdap) 1967 RSV VACCINE (60+ or ) (1 - 1-dose 75+ series) 2023 INFLUENZA VACCINE (#1) 2025 , 08/02/2022, 07/22/2021, Additional history exists OSTEOPOROSIS SCREENING 06/16/2028 06/16/2023 PNEUMOCOCCAL VACCINE 50+ YEARS Completed 12/15/2017 , 09/16/2016 ZOSTER VACCINE Completed 08/09/2023, 06/13/2023 Procedures Procedure Name Priority Date/Time Associated Diagnosis Comments BASIC METABOLIC PANEL Routine 07/15/2025 1:41 PM CDT CBC WITH AUTODIFFERENTIAL Routine 2024 1:31 PM CDT from Last 3 Months Results * BASIC METABOLIC PANEL (07/15/2025 1:41 PM CDT) Blood Dereck Garber MD CHEMISTRY ORDERABLES Final Resu lt * CBC WITH AUTODIFFERENTIAL (07/15/2025 1:31 PM CDT) Blood us Dereck Garber MD HEMATOLOGY ORDERABLES Final Res ult from Last 3 Months Insurance [facility] Address: [place] [address] [facility] [id number] Care Teams Bridge Contractor Relationship Specialty Start Date End Date Ang Florez MD PCP - General Internal Medicine 08/07/24
== END 2025-10-03 12:26 | disposition home or self-care (01) ==
PROVIDERS: PCP Internal Medicine; Visit Provider Internal Medicine
DX: M79.605 Pain in left leg (principal); M79.604 Pain in right leg; M54.50 Low back pain, unspecified
CPT/HCPCS: 72100; 93970